=== PATIENT | female | born 1955 | race Caucasian/White ===

== ENCOUNTER 2022-07-23 17:48 | Inpatient (IN) ==
[2022-07-23] MEDS ORDERED: PERCOCET TAB 5/325 MG ONE (22:43)
[2022-07-23] MEDS: PERCOCET TAB 5/325 MG PO PRN (22:48)
[2022-07-23] MEDS: ZOSYN VIAL 3.375 GRAMS 3.375 G in NS 100 ML IV 100 ML IV SCH (23:51)
[2022-07-23] MEDS: LR 1,000 ML IV 1,000 ML IV SCH (23:51)
[2022-07-24] MEDS: DILAUDID INJ IVP PRN ×3 (00:44→19:39)
[2022-07-24] MEDS: PERCOCET TAB 5/325 MG PO PRN (05:50)
[2022-07-24] MEDS: NEURONTIN CAP 100 MG PO SCH ×3 (05:56→21:11)
[2022-07-24] MEDS: REQUIP PO SCH ×3 (05:56→21:10)
[2022-07-24] MEDS: SYNTHROID 125 mcg TAB PO SCH (05:57)
[2022-07-24] MEDS: ZOSYN VIAL 3.375 GRAMS 3.375 G in NS 100 ML IV 100 ML IV SCH ×3 (05:57→21:18)
[2022-07-24] MEDS: ROBAXIN PO SCH ×3 (05:57→21:18)
[2022-07-24 06:02] LABS: BASOPHILS # (AUTO) 0.1 X10^3/uL (0.0-0.1); BASOPHILS % (AUTO) 0.8 % (0.2-1.0); EOSINOPHILS # (AUTO) 0.2 x10^3/uL (0.0-0.2); EOSINOPHILS % (AUTO) 2.3 % (0.9-2.9); HEMATOCRIT 28.7 % (36.0-47.0); HEMOGLOBIN 9.7 g/dL (12.0-16.0); MEAN CORPUSCULAR HEMOGLOBIN 30.9 pg (27.0-34.0); MEAN CORPUSCULAR HGB CONC 33.7 g/dL (33.0-35.0); MEAN CORPUSCULAR VOLUME 91.5 fL (80.0-100.0); MEAN PLATELET VOLUME 8.4 fL (7.4-11.0); MONOCYTES # (AUTO) 0.5 x10^3/uL (0.3-0.8); MONOCYTES % (AUTO) 6.4 % (0.0-13.0); NEUTROPHILS # (AUTO) 6.1 x10^3/uL (2.2-4.8); NEUTROPHILS % (AUTO) 77.5 % (42.0-75.0); RED BLOOD COUNT 3.14 X10^6/uL (3.5-5.4); RED CELL DISTRIBUTION WIDTH 13.4 % (11.6-16.5); WHITE BLOOD COUNT 7.9 X10^3/uL (3.6-10.0)
[2022-07-24 06:07] LABS: INR 1.31 (0.8-1.3)
[2022-07-24 06:15] LABS: ALANINE AMINOTRANSFERASE 21 Units/L (12-78); ALBUMIN 2.3 g/dL (3.4-5.0); ALKALINE PHOSPHATASE 295 Units/L (46-116); ASPARTATE AMINO TRANSFERASE 20 Units/L (15-37); BLOOD UREA NITROGEN 17 mg/dL (7-18); CARBON DIOXIDE 34.4 mmol/L (21-32); CHLORIDE 105 mmol/L (98-107); COR CA(FOR HYPOALB) 9.4 mg/dL (8.5-10.1); COR NA(FOR HYPERGLY) 142 mmol/L (136-145); CREATININE 1.03 mg/dL (0.55-1.02); SODIUM 141 mmol/L (136-145); TOTAL PROTEIN 6.1 g/dL (6.4-8.2); eGFR NON BLACK RACES 57 (>60)
--- NOTE | 2022-07-24 07:21 | RAD ---
HISTORYPREOP ISCHEMIC LEFT LEG W/OPEN WOUNDSTUDYCHEST, 1 VIEWCOMPARISONNoneTECHNIQUEAP view of the chestFINDINGSCardiac and mediastinal contours are within normal limits. Elevated right hemidiaphragm. Linear left midlung opacities consistent with subsegmental atelectasis or scar. No definite pleural effusion or pneumothorax. Soft tissue attenuation limits evaluation.IMPRESSIONLeft midlung subsegmental atelectasis versus scar.Electronically signed by: Dirk Rivas (Jul 24, 2022 07:19:59)
[2022-07-24] MEDS ORDERED: TOPROL XL PO ONE (08:36)
[2022-07-24] MEDS ORDERED: LEXAPRO ONE (08:36)
--- NOTE | 2022-07-24 09:46 | NOTE.SOAP ---
Soap Note Note for Day of Date of Exam: 07/24/22 Subjective Data Subjective Data: Admitted yesterday from office for non- healing wounds of the left foot secondary to cast placement with probable ischemia left leg. Did well through the night and pain relieved Objective Data Temperature: 97.8 F Pulse Rate: 60 Respiratory Rate: 18 Blood Pressure: 140/62 O2 Sat by Pulse Oximetry: 6 Objective Data: LEft foot wounds as per H& P. Now coveredd with dressing . Cr-= 1.03, Hgb=9.7, WBC=7.9 Assessment Assessment: Ischemic left leg with wounds Plan Plan: IV antibiotics, CTA of aorta with runoff both legs today.
[2022-07-24] MEDS: ASPIRIN EC 81 MG PO SCH (11:14)
[2022-07-24] MEDS: LEXAPRO PO SCH (11:14)
[2022-07-24] MEDS: VITAMIN D3 125 mcg (5,000 UNITS) PO SCH (11:15)
[2022-07-24] MEDS: ZETIA TAB 10 MG PO SCH (11:15)
[2022-07-24] MEDS: PROTONIX TAB 40 MG PO SCH (11:15)
[2022-07-24] MEDS: FOLIC ACID TAB 1 MG PO SCH (11:15)
[2022-07-24] MEDS: LOVENOX INJ 40 MG SYR SC SCH (11:16)
[2022-07-24] MEDS: TOPROL XL PO SCH (11:19)
[2022-07-24] MEDS: CATAPRES TAB 0.1 MG PO SCH ×2 (11:19→21:12)
[2022-07-24] MEDS: LR 1,000 ML IV 1,000 ML IV SCH (11:55)
[2022-07-24] MEDS: SANTYL EXT SCH (14:30)
[2022-07-24] MEDS: COLACE CAP 100 MG PO SCH (21:10)
[2022-07-24] MEDS: MELATONIN PO SCH (21:11)
[2022-07-24] MEDS: SINGULAIR TAB 10 MG PO SCH (21:12)
--- NOTE | 2022-07-24 23:29 | DR.UPDATE ---
H&P UPDATE Review Yes Patient was examined?: Yes
[2022-07-25] MEDS: LR 1,000 ML IV 1,000 ML IV SCH ×2 (01:26→13:56)
[2022-07-25] MEDS: ROBAXIN PO SCH ×3 (05:20→21:06)
[2022-07-25] MEDS: NEURONTIN CAP 100 MG PO SCH ×3 (05:20→21:05)
[2022-07-25] MEDS: REQUIP PO SCH ×3 (05:20→21:06)
[2022-07-25] MEDS: ZOSYN VIAL 3.375 GRAMS 3.375 G in NS 100 ML IV 100 ML IV SCH ×3 (05:21→21:05)
[2022-07-25] MEDS: SYNTHROID 125 mcg TAB PO SCH (05:50)
[2022-07-25 06:22] LABS: BASOPHILS % (AUTO) 0.8 % (0.2-1.0); EOSINOPHILS # (AUTO) 0.1 x10^3/uL (0.0-0.2); EOSINOPHILS % (AUTO) 2.5 % (0.9-2.9); HEMATOCRIT 28.1 % (36.0-47.0); HEMOGLOBIN 9.4 g/dL (12.0-16.0); LYMPHOCYTES # (AUTO) 0.9 X10^3/uL (1.3-2.9); LYMPHOCYTES % (AUTO) 15.7 % (21.0-51.0); MEAN CORPUSCULAR HEMOGLOBIN 30.9 pg (27.0-34.0); MEAN CORPUSCULAR HGB CONC 33.5 g/dL (33.0-35.0); MEAN CORPUSCULAR VOLUME 92.2 fL (80.0-100.0); MEAN PLATELET VOLUME 8.3 fL (7.4-11.0); MONOCYTES # (AUTO) 0.4 x10^3/uL (0.3-0.8); MONOCYTES % (AUTO) 7.4 % (0.0-13.0); NEUTROPHILS # (AUTO) 4.3 x10^3/uL (2.2-4.8); NEUTROPHILS % (AUTO) 73.6 % (42.0-75.0); RED BLOOD COUNT 3.05 X10^6/uL (3.5-5.4); RED CELL DISTRIBUTION WIDTH 13.6 % (11.6-16.5); WHITE BLOOD COUNT 5.8 X10^3/uL (3.6-10.0)
[2022-07-25 06:41] LABS: ALANINE AMINOTRANSFERASE 17 Units/L (12-78); ALBUMIN 2.2 g/dL (3.4-5.0); ALKALINE PHOSPHATASE 282 Units/L (46-116); ASPARTATE AMINO TRANSFERASE 19 Units/L (15-37); BLOOD UREA NITROGEN 19 mg/dL (7-18); CALCIUM 8.2 mg/dL (8.5-10.1); CHLORIDE 108 mmol/L (98-107); COR CA(FOR HYPOALB) 9.6 mg/dL (8.5-10.1); CREATININE 0.95 mg/dL (0.55-1.02); SODIUM 143 mmol/L (136-145); TOTAL PROTEIN 6.1 g/dL (6.4-8.2); eGFR NON BLACK RACES > 60 (>60)
[2022-07-25] MEDS ORDERED: LEXAPRO ONE (08:47)
[2022-07-25] MEDS ORDERED: TOPROL XL PO ONE (08:47)
[2022-07-25] MEDS: PROTONIX TAB 40 MG PO SCH (08:55)
[2022-07-25] MEDS: LOVENOX INJ 40 MG SYR SC SCH (08:55)
[2022-07-25] MEDS: TOPROL XL PO SCH (08:56)
[2022-07-25] MEDS: VITAMIN D3 125 mcg (5,000 UNITS) PO SCH (08:56)
[2022-07-25] MEDS: FOLIC ACID TAB 1 MG PO SCH (08:56)
[2022-07-25] MEDS: CATAPRES TAB 0.1 MG PO SCH ×2 (08:56→21:32)
[2022-07-25] MEDS: ZETIA TAB 10 MG PO SCH (08:56)
[2022-07-25] MEDS: ASPIRIN EC 81 MG PO SCH (08:56)
[2022-07-25] MEDS: LEXAPRO PO SCH (08:56)
[2022-07-25] MEDS: SANTYL EXT SCH (09:25)
[2022-07-25] MEDS: PERCOCET TAB 5/325 MG PO PRN ×2 (09:36→20:53)
--- NOTE | 2022-07-25 11:46 | NOTE.SOAP ---
Soap Note Note for Day of Date of Exam: 07/25/22 Subjective Data Subjective Data: Doing well.Pain controlled . Dressing changes of left foot being done daily. Objective Data Temperature: 98.3 F Pulse Rate: 66 Respiratory Rate: 20 Blood Pressure: 108/54 O2 Sat by Pulse Oximetry: 96 Objective Data: Left foot as above. CTA shows severe stenosis both SFAs with probable 3 vessel runoff bilaterally. Assessment Assessment: Ischemic left foot with non-healing wounds . Bilateral SFA severe stenosis. Plan Plan: Plan arteriogram and atherectomy and angioplasty left SFA as it is the side of concern now. Will need the right leg done in the future as well. Risks and benefits discussed with the patient and she agrees to proceed.
[2022-07-25] MEDS: SINGULAIR TAB 10 MG PO SCH (20:52)
[2022-07-25] MEDS: MELATONIN PO SCH (20:52)
[2022-07-25] MEDS: COLACE CAP 100 MG PO SCH (20:53)
[2022-07-25] MEDS: DUONEB 0.5 MG/3 MG (3 mL) NEB SCH (21:00)
[2022-07-25] MEDS: PULMICORT NEB TX 0.5 MG NEB SCH (21:00)
[2022-07-25] MEDS: DILAUDID INJ IVP PRN (23:51)
[2022-07-26] MEDS: LR 1,000 ML IV 1,000 ML IV SCH ×3 (02:15→18:27)
[2022-07-26] MEDS: NEURONTIN CAP 100 MG PO SCH ×3 (05:13→21:17)
[2022-07-26] MEDS: ROBAXIN PO SCH ×3 (05:14→21:17)
[2022-07-26] MEDS: REQUIP PO SCH ×3 (05:14→21:16)
[2022-07-26] MEDS: ZOSYN VIAL 3.375 GRAMS 3.375 G in NS 100 ML IV 100 ML IV SCH ×3 (05:14→21:17)
[2022-07-26] MEDS: SYNTHROID 125 mcg TAB PO SCH (05:31)
[2022-07-26] MEDS: DILAUDID INJ IVP PRN (05:38)
[2022-07-26 06:22] LABS: BASOPHILS % (AUTO) 0.6 % (0.2-1.0); EOSINOPHILS # (AUTO) 0.2 x10^3/uL (0.0-0.2); EOSINOPHILS % (AUTO) 2.6 % (0.9-2.9); HEMATOCRIT 26.4 % (36.0-47.0); HEMOGLOBIN 8.8 g/dL (12.0-16.0); LYMPHOCYTES # (AUTO) 0.8 X10^3/uL (1.3-2.9); LYMPHOCYTES % (AUTO) 12.2 % (21.0-51.0); MEAN CORPUSCULAR HEMOGLOBIN 30.3 pg (27.0-34.0); MEAN CORPUSCULAR HGB CONC 33.2 g/dL (33.0-35.0); MEAN CORPUSCULAR VOLUME 91.2 fL (80.0-100.0); MEAN PLATELET VOLUME 8.6 fL (7.4-11.0); MONOCYTES # (AUTO) 0.5 x10^3/uL (0.3-0.8); MONOCYTES % (AUTO) 7.1 % (0.0-13.0); NEUTROPHILS % (AUTO) 77.5 % (42.0-75.0); RED CELL DISTRIBUTION WIDTH 13.6 % (11.6-16.5); WHITE BLOOD COUNT 6.4 X10^3/uL (3.6-10.0)
[2022-07-26 06:32] LABS: ALANINE AMINOTRANSFERASE 19 Units/L (12-78); ALBUMIN 2.2 g/dL (3.4-5.0); ALKALINE PHOSPHATASE 303 Units/L (46-116); ASPARTATE AMINO TRANSFERASE 24 Units/L (15-37); BLOOD UREA NITROGEN 18 mg/dL (7-18); CARBON DIOXIDE 32.3 mmol/L (21-32); CHLORIDE 106 mmol/L (98-107); COR CA(FOR HYPOALB) 9.4 mg/dL (8.5-10.1); COR NA(FOR HYPERGLY) 141 mmol/L (136-145); CREATININE 1.05 mg/dL (0.55-1.02); SODIUM 141 mmol/L (136-145); TOTAL PROTEIN 5.9 g/dL (6.4-8.2); eGFR NON BLACK RACES 55 (>60)
[2022-07-26] MEDS: FOLIC ACID TAB 1 MG PO SCH (08:40)
[2022-07-26] MEDS: ASPIRIN EC 81 MG PO SCH (08:40)
[2022-07-26] MEDS: CATAPRES TAB 0.1 MG PO SCH ×2 (08:40→21:16)
[2022-07-26] MEDS: VITAMIN D3 125 mcg (5,000 UNITS) PO SCH (08:41)
[2022-07-26] MEDS: LEXAPRO PO SCH (08:41)
[2022-07-26] MEDS: ZETIA TAB 10 MG PO SCH (08:41)
[2022-07-26] MEDS: LOVENOX INJ 40 MG SYR SC SCH (08:41)
[2022-07-26] MEDS: TOPROL XL PO SCH (08:41)
[2022-07-26] MEDS: PROTONIX TAB 40 MG PO SCH (08:41)
[2022-07-26] MEDS: DUONEB 0.5 MG/3 MG (3 mL) NEB SCH ×2 (08:46→20:05)
[2022-07-26] MEDS: PULMICORT NEB TX 0.5 MG NEB SCH ×2 (08:46→20:05)
[2022-07-26] MEDS ORDERED: VERSED ONE (10:50)
[2022-07-26] MEDS ORDERED: FENTANYL VIAL INJ 100 mcg ONE (10:50)
[2022-07-26] MEDS ORDERED: PEPCID 20 MG VIAL ONE ×2 (10:54→11:21)
[2022-07-26] MEDS ORDERED: PROTAMINE SULFATE 50 MG VIAL ONE ×2 (11:21→13:21)
[2022-07-26] MEDS ORDERED: HEPARIN SODIUM INJ 5000 UNITS ONE (11:21)
[2022-07-26] MEDS ORDERED: NS 100 ML IV 100 ML ONE (11:22)
[2022-07-26] MEDS ORDERED: NS 1,000 ML IV 1,000 ML ONE (11:22)
[2022-07-26] MEDS ORDERED: ANCEF VIAL 1 GRAM ONE ×2 (11:22→11:23)
[2022-07-26] MEDS ORDERED: MARCAINE 0.5% ONE (11:31)
[2022-07-26] MEDS ORDERED: HEPARIN SODIUM IN D5W 75,000 UNITS/1,500 ML BAG ONE (11:31)
[2022-07-26] MEDS ORDERED: KETAMINE HCL ONE (11:49)
[2022-07-26] MEDS ORDERED: PRECEDEX INJ VIAL IVP ONE (11:49)
[2022-07-26] MEDS ORDERED: EPHEDRINE SULFATE INJ ONE (12:17)
[2022-07-26] MEDS ORDERED: DIPRIVAN VIAL 20 ML ONE (12:56)
[2022-07-26] MEDS ORDERED: NS 500 ML IV 500 ML IV ONE (12:59)
[2022-07-26] MEDS ORDERED: NEO-SYNEPHRINE INJ ONE (13:05)
--- NOTE | 2022-07-26 13:31 | OR.IMMED ---
IMMEDIATE POST-OP NOTE Immediate Post-Op Note Pre-Op Diagnosis: Ischemic left foot with non- healing wounds Post-Op Diagnosis: same Procedure: Aortogram, atherectomy and angioplasty left peroneal artery, Drug coated balloon angioplasty left SFA Surgeon/Field Crop Farmer: Carina Findings: 75 % stenosis left distal SFA, occlude left posterior tibial artery, severely diseased proximal left peroneal artery normal left anterior tibial cheyanne ry Estimated Blood Loss: 100cc Complications: none Discharge Progress Notes: to floor, continue IV antibiotics, Dr. Scott to debride left foot wounds tomorrow. Final Diagnosis: as above
[2022-07-26] MEDS: PERCOCET TAB 5/325 MG PO PRN ×2 (14:50→21:21)
--- NOTE | 2022-07-26 17:22 | DR.CONSULT ---
CONSULT Consultation for Day of: Date: 07/26/22 Chief Complaint Chief Complaint: Lower extremity wounds Allergies Allergies Allergy/AdvReac Type Severity Reaction Status Date / Time No Known Drug Allergies Allergy Verified 07/23/22 21:06 History of Present Illness History of Present Illness: This is a 67 year old female who presented to the hospital via Dr. Corado for left lower extremity ischemia with non-healing wounds. Her is present bedside at the time of interview. Significant history is listed below. Patient's states she fell and fractured several bones in her left ankle and was being seen down in [place], [place] for this. During this period she was treated conservatively with a below knee cast. Patient states she was having a lot of pain with the cast and once it was removed she noticed there were multiple wounds on her ankle and foot. Patient states she has been seeing Dr. Scott in clinic for this and she was sent to Dr. Corado via Dr. Scott for further vascular workup. She was taken to surgery today by Dr. Corado for left lower extremity ischemia. Patient states she also has a broken back and that her right knee is severely arthritic, which she is concerned will not be able to be addressed unless her left foot wounds heal. She denies any new treatments since her last visit. Denies f,c,n,v,sob, and cp at time of interview. Past Medical History Past Medical History: Arthritis (Right knee) Past Surgical History Surgical History: Ortho Surgery Family History Family Medical History: Sudden Cardiac Social History Does patient currently use any type of tobacco product: No Have you used tobacco products in the last 12 months: No Type of Tobacco Use: Cigarettes How many years tobacco product used: 25 Alcohol Use: DAILY Drug Use: None Medications Home Medications: No Known Drug Allergies Allergy (Verified 07/23/22 21:06) CONTINUE taking the following medications aspirin 81 mg chewable tablet 81 mg PO QDAY 07/23/22 [History] cholecalciferol (vitamin D3) 125 mcg (5,000 unit) tablet (Vitamin D3) 125 mcg PO QAM 07/23/22 [History] clonidine HCl 0.1 mg tablet 1 tab PO TID PRN blood pressure 07/23/22 [History] clopidogrel 75 mg tablet 1 tab PO QDAY 07/23/22 [History] docusate sodium 100 mg capsule 1 cap PO BID 07/23/22 [History] escitalopram oxalate 10 mg tablet 1 tab PO QDAY 07/23/22 [History] ezetimibe 10 mg tablet 1 tab PO QDAY 07/23/22 [History] folic acid 1 mg tablet 1 tab PO QDAY anemia 07/23/22 [History] furosemide 20 mg tablet 20 mg PO QAM 07/23/22 [History] gabapentin 100 mg capsule 1 cap PO 6XD 07/23/22 [History] hydrocodone 5 mg-acetaminophen 325 mg tablet 1 tab PO Q6H PRN 07/23/22 [History] levothyroxine 50 mcg tablet (Synthroid) 1 tab PO QDAY 07/23/22 [History] magnesium citrate 100 mg capsule 200 mg PO QAM 07/23/22 [History] melatonin 10 mg tablet 10 mg PO HS PRN 07/23/22 [History] methocarbamol 500 mg tablet 1 tab PO TID 07/23/22 [History] metoprolol succinate 100 mg tablet,extended release 24 hr 1 tab PO QDAY 07/23/22 [History] montelukast 10 mg tablet 1 tab PO QDAY 07/23/22 [History] mupirocin 2 % topical ointment 1 ea topical BID 07/23/22 [History] pantoprazole 40 mg tablet,delayed release 1 tab PO QDAY 07/23/22 [History] polysaccharide iron complex 150 mg iron capsule 1 cap PO QDAY 07/23/22 [History] ropinirole 0.5 mg tablet 1 tab PO QDAY 07/23/22 [History] vit C 250 mg-vit E 90 mg-zinc 40 mg-copper 1 [id number]-thproe capsule (PreserVision AREDS-2) 1 cap PO QHS 07/23/22 [History] Review of Systems Constitutional: Other (Negative unless otherwise noted in HPI.) Physical Exam Vital Signs: Temperature 98.7 F Pulse Rate [Left Brachial] 64 Pulse Rate [Right Brachial] 69 Pulse Rate 76 Respiratory Rate 18 Blood Pressure [Left Arm] 134/63 Blood Pressure [Right Arm] 158/68 Blood Pressure 108/54 O2 Sat by Pulse Oximetry 92 Cardiovascular: Other (DP/PT pulses are faintly palpable bilaterally. CFT = 3 seconds to digits bilaterally. +1 Pitting edema to left lower extremity distal to knee. Pedal hair absent.) Skin: Other (Light touch and protective sensation are intact on todays exam via [place] touch test. No focal motor deficits noted.) Musculoskeletal: Left, Ankle (Multiple lower extremity wounds - one anterior ankle and one posterior ankle of the left lower extremity. Wounds are fibrogranular. Erythema noted about the wounds. Mild serosanginous drainage. No obvious malodor or purulence today.) and Foot Plan (1) Unspecified open wound, left ankle, initial encounter: Status: Acute Plan: Will take to OR tomorrow for left lower extremity wound debridement with possible application of wound vac. NPO after midnight. Consent in patient packet. Patient receiving IV abx on floor Discussed follow up care at home - Shelley, the cyanide case hardener, will have to follow up about home health care needs for wound vac changes. Will write for wound vac tomorrow. (2) Ischemia of left lower extremity: Status: Acute Plan: Patient was seen today by Dr. Corado and underwent vascular intervention for left lower extremity ischemia. CTA reviewed.
[2022-07-26] MEDS: COLACE CAP 100 MG PO SCH (21:16)
[2022-07-26] MEDS: MELATONIN PO SCH (21:16)
[2022-07-26] MEDS: SINGULAIR TAB 10 MG PO SCH (21:16)
[2022-07-27] MEDS: DILAUDID INJ IVP PRN ×2 (02:25→19:50)
[2022-07-27] MEDS: NEURONTIN CAP 100 MG PO SCH ×3 (05:17→21:41)
[2022-07-27] MEDS: REQUIP PO SCH ×3 (05:17→21:41)
[2022-07-27] MEDS: ROBAXIN PO SCH ×3 (05:18→21:42)
[2022-07-27] MEDS: SYNTHROID 125 mcg TAB PO SCH (05:32)
[2022-07-27] MEDS: ZOSYN VIAL 3.375 GRAMS 3.375 G in NS 100 ML IV 100 ML IV SCH ×3 (05:32→21:42)
[2022-07-27 06:20] LABS: BASOPHILS % (AUTO) 0.5 % (0.2-1.0); EOSINOPHILS # (AUTO) 0.1 x10^3/uL (0.0-0.2); EOSINOPHILS % (AUTO) 2.4 % (0.9-2.9); HEMATOCRIT 24.2 % (36.0-47.0); HEMOGLOBIN 8.3 g/dL (12.0-16.0); LYMPHOCYTES # (AUTO) 0.7 X10^3/uL (1.3-2.9); LYMPHOCYTES % (AUTO) 12.6 % (21.0-51.0); MEAN CORPUSCULAR HEMOGLOBIN 31.2 pg (27.0-34.0); MEAN CORPUSCULAR VOLUME 91.6 fL (80.0-100.0); MEAN PLATELET VOLUME 8.4 fL (7.4-11.0); MONOCYTES # (AUTO) 0.5 x10^3/uL (0.3-0.8); MONOCYTES % (AUTO) 8.8 % (0.0-13.0); NEUTROPHILS # (AUTO) 4.4 x10^3/uL (2.2-4.8); NEUTROPHILS % (AUTO) 75.7 % (42.0-75.0); RED BLOOD COUNT 2.65 X10^6/uL (3.5-5.4); RED CELL DISTRIBUTION WIDTH 13.7 % (11.6-16.5); WHITE BLOOD COUNT 5.8 X10^3/uL (3.6-10.0)
[2022-07-27 06:36] LABS: ALANINE AMINOTRANSFERASE 17 Units/L (12-78); ALKALINE PHOSPHATASE 280 Units/L (46-116); ASPARTATE AMINO TRANSFERASE 24 Units/L (15-37); BLOOD UREA NITROGEN 14 mg/dL (7-18); CALCIUM 7.9 mg/dL (8.5-10.1); CARBON DIOXIDE 29.7 mmol/L (21-32); CHLORIDE 107 mmol/L (98-107); COR CA(FOR HYPOALB) 9.5 mg/dL (8.5-10.1); COR NA(FOR HYPERGLY) 142 mmol/L (136-145); CREATININE 0.85 mg/dL (0.55-1.02); SODIUM 141 mmol/L (136-145); TOTAL PROTEIN 5.5 g/dL (6.4-8.2); eGFR NON BLACK RACES > 60 (>60)
[2022-07-27] MEDS: LR 1,000 ML IV 1,000 ML IV SCH ×2 (07:12→21:42)
[2022-07-27] MEDS: DUONEB 0.5 MG/3 MG (3 mL) NEB SCH ×2 (08:39→21:49)
[2022-07-27] MEDS: PULMICORT NEB TX 0.5 MG NEB SCH ×2 (08:39→21:49)
[2022-07-27] MEDS: PROTONIX TAB 40 MG PO SCH (08:50)
[2022-07-27] MEDS: FOLIC ACID TAB 1 MG PO SCH (08:50)
[2022-07-27] MEDS: ASPIRIN EC 81 MG PO SCH (08:50)
[2022-07-27] MEDS: CATAPRES TAB 0.1 MG PO SCH ×2 (08:50→21:41)
[2022-07-27] MEDS: LEXAPRO PO SCH (08:50)
[2022-07-27] MEDS: ZETIA TAB 10 MG PO SCH (08:51)
[2022-07-27] MEDS: TOPROL XL PO SCH (08:51)
[2022-07-27] MEDS: VITAMIN D3 125 mcg (5,000 UNITS) PO SCH (08:51)
[2022-07-27] MEDS ORDERED: DIPRIVAN VIAL 20 ML ONE (12:25)
[2022-07-27] MEDS ORDERED: XYLOCAINE 2 % (PLAIN) ONE (12:25)
[2022-07-27] MEDS ORDERED: VERSED ONE (12:34)
[2022-07-27] MEDS ORDERED: FENTANYL VIAL INJ 100 mcg ONE (12:34)
[2022-07-27] MEDS ORDERED: ANCEF VIAL 1 GRAM ONE (14:24)
[2022-07-27] MEDS ORDERED: NS 100 ML IV 100 ML ONE (14:25)
[2022-07-27] MEDS ORDERED: NS 1,000 ML IV 1,000 ML ONE (14:25)
[2022-07-27] MEDS ORDERED: BETADINE SOLN ONE (14:38)
[2022-07-27] MEDS ORDERED: MARCAINE 0.25% INJ ONE (14:38)
--- NOTE | 2022-07-27 15:52 | NOTE.SOAP ---
Soap Note Note for Day of Date of Exam: 07/27/22 Subjective Data Subjective Data: POD # 1 after drug coated balloon angioplasty of left SFA and atherecrtomy and balloon angioplasty left peroneal artery to improve blood flow left leg and help healing. Dr. Scott to perform debridement of all wounds left foot today. Patient and her c/ o her being generally weak and he is coincrned he cannot take care of her at home bu himself. Had some bleeding form the right groin and that stopped with pressure. Hgb is 8.3 . Objective Data Temperature: 98.2 F Pulse Rate: 95 Respiratory Rate: 20 Blood Pressure: 126/58 O2 Sat by Pulse Oximetry: 96 Objective Data: Feet warm, Hgb=8.3, BMP is WNL, platlets = 65k Assessment Assessment: Doing well after revascularization and derbidement of the of the left foot wounds . Plan Plan: Originally planned to d/c patient home today but she will stau throught the weekend until we can get her placed the first of the week. I will be out of town starting tomorrow and Dr. Scott's service will follow her to discharge. D/C with po pain medications and po antibiotics.
[2022-07-27] MEDS: PERCOCET TAB 5/325 MG PO PRN (18:10)
[2022-07-27] MEDS: SINGULAIR TAB 10 MG PO SCH (21:41)
[2022-07-27] MEDS: MELATONIN PO SCH (21:41)
[2022-07-27] MEDS: COLACE CAP 100 MG PO SCH (21:41)
--- NOTE | 2022-07-27 22:44 | DR.OPNOTE ---
OP NOTE Pre-Op Diagnosis: Ischemic left leg with non- healing wounds Post-Op Diagnosis: same Procedure Date Date Of Procedure: 07/26/22 Procedure: PROCEDURE: Aortogram, arteriogram left leg, atherectomy and balloon angioplasty of the left peroneal artery, drug coated balloon angioplasty left superficial femoral artery. NARRATIVE: The patient was taken to the operative suite and placed in the supine position. Right groin and entire left leg were prepped and draped in sterile fashion. Time out for the procedure obtained . Patient was administered intravenous sedation which was supervised by myself. Ultrasound used to identify the right femoral artery and the skin overlying it infiltrated with 0. 5% Marcaine . Ultrasound used to guide puncture of the right femoral artery and a 0. 012 inch guide wire placed. Incision made over the guide wire at the skin edge and a micro sheath placed over the guidewire into the right femoral artery. Small guidewire exchanged for a 0. 035 inch Advantage glide wire and the micro sheath exchanged for a 5 Fr vascular sheath . Omni catheter placed over the guide wire into the aorta and diagnostic aortogram carried out using the power injector showing normal aorta and normal iliac arteries . Omni catheter used to steer the guide wire down the left side into the left femoral artery . Omni catheter exchanged for a Hayden catheter and sequential arteriograms carried out of the entire left leg showing 75% stenosis of the left distal superficial femoral artery. The left posterior tibial artery is occluded. The anterior tibial artery is patent to the foot and there was severe stenosis of the mid portion of the left peroneal artery. The patient has been given 5000 units of intravenous Heparin. The 5 Fr sheath was exchanged for a 7 Fr long sheath which was taken down to the proximal femoral artery. The Hayden catheter used to steer the wire down through the peroneal artery stenosis to the foot. This large wire exchanged for a 0. 014 inch wire using the Hayden catheter. Over t he 0. 014 inch wire we placed the Jet Stream atherectomy device and performed atherectomy of the area of stenosis of the left peroneal artery and then balloon dilated this with a 3 mm by 100 mm [employer] [place] balloon. Over the wire we performed angioplasty of the stenosis of the superficial femoral artery with a drug coated balloon angioplasty 5 mm by 200 mm [employer] drug-coated balloon. Post-procedure arteriogram showed excellent results. All devices and wires were removed from the sheaths . The destination sheath was pulled back into the aorta and 0. 035 inch Advantage glide wire placed into the aorta. The 7 Fr sheath was removed and exchanged for an Angio seal device which was used to close the puncture site of the right femoral artery. The patient was given 30 mg of intravenous Protamine. Hemostatic dressing applied to the right groin. Patient taking back to the floor in good condition. Type of Anesthesia: Local (0.5% Marcaine ) Anesthesia Comment: plus MAC Findings: occluded left posterior tibial artery, severe stenosis left peroneal artery, 75 % stenosis left distal superficial femoral artery Type of Fluids Used:: Lactated Ringers Total Amount of Fluid Infused:: 300 cc EBL: 100 cc Complications:: none Needle/Sponge Count:: correct Disposition/Condition: Pt. tolerated procedure without difficulty. Patient taken back to floor in stable condition.
[2022-07-28] MEDS: DILAUDID INJ IVP PRN ×2 (01:35→08:51)
[2022-07-28] MEDS: SYNTHROID 125 mcg TAB PO SCH (05:30)
[2022-07-28] MEDS: REQUIP PO SCH ×3 (05:30→21:36)
[2022-07-28] MEDS: NEURONTIN CAP 100 MG PO SCH ×3 (05:30→21:36)
[2022-07-28] MEDS: ROBAXIN PO SCH ×3 (05:31→21:37)
[2022-07-28] MEDS: ZOSYN VIAL 3.375 GRAMS 3.375 G in NS 100 ML IV 100 ML IV SCH ×3 (05:31→21:35)
[2022-07-28 06:45] LABS: ALANINE AMINOTRANSFERASE 13 Units/L (12-78); ALBUMIN 1.9 g/dL (3.4-5.0); ALKALINE PHOSPHATASE 269 Units/L (46-116); ASPARTATE AMINO TRANSFERASE 21 Units/L (15-37); BLOOD UREA NITROGEN 10 mg/dL (7-18); CALCIUM 8.1 mg/dL (8.5-10.1); CARBON DIOXIDE 30.3 mmol/L (21-32); CHLORIDE 107 mmol/L (98-107); COR CA(FOR HYPOALB) 9.8 mg/dL (8.5-10.1); COR NA(FOR HYPERGLY) 142 mmol/L (136-145); CREATININE 0.77 mg/dL (0.55-1.02); SODIUM 141 mmol/L (136-145); TOTAL PROTEIN 5.5 g/dL (6.4-8.2); eGFR NON BLACK RACES > 60 (>60)
[2022-07-28 06:57] LABS: BASOPHILS % (AUTO) 0.8 % (0.2-1.0); EOSINOPHILS # (AUTO) 0.2 x10^3/uL (0.0-0.2); EOSINOPHILS % (AUTO) 3.3 % (0.9-2.9); HEMATOCRIT 24.3 % (36.0-47.0); LYMPHOCYTES # (AUTO) 0.7 X10^3/uL (1.3-2.9); LYMPHOCYTES % (AUTO) 14.1 % (21.0-51.0); MEAN CORPUSCULAR HEMOGLOBIN 30.5 pg (27.0-34.0); MEAN CORPUSCULAR HGB CONC 32.9 g/dL (33.0-35.0); MEAN CORPUSCULAR VOLUME 92.7 fL (80.0-100.0); MEAN PLATELET VOLUME 8.5 fL (7.4-11.0); MONOCYTES # (AUTO) 0.6 x10^3/uL (0.3-0.8); MONOCYTES % (AUTO) 10.9 % (0.0-13.0); NEUTROPHILS # (AUTO) 3.6 x10^3/uL (2.2-4.8); NEUTROPHILS % (AUTO) 70.9 % (42.0-75.0); RED BLOOD COUNT 2.62 X10^6/uL (3.5-5.4); RED CELL DISTRIBUTION WIDTH 13.6 % (11.6-16.5); WHITE BLOOD COUNT 5.1 X10^3/uL (3.6-10.0)
[2022-07-28] MEDS ORDERED: TOPROL XL PO ONE (08:12)
[2022-07-28] MEDS ORDERED: LEXAPRO ONE (08:12)
[2022-07-28] MEDS: PROTONIX TAB 40 MG PO SCH (08:24)
[2022-07-28] MEDS: TOPROL XL PO SCH (08:24)
[2022-07-28] MEDS: VITAMIN D3 125 mcg (5,000 UNITS) PO SCH (08:24)
[2022-07-28] MEDS: LEXAPRO PO SCH (08:24)
[2022-07-28] MEDS: CATAPRES TAB 0.1 MG PO SCH ×2 (08:25→21:37)
[2022-07-28] MEDS: ZETIA TAB 10 MG PO SCH (08:25)
[2022-07-28] MEDS: FOLIC ACID TAB 1 MG PO SCH (08:25)
[2022-07-28] MEDS: ASPIRIN EC 81 MG PO SCH (08:25)
[2022-07-28] MEDS: DUONEB 0.5 MG/3 MG (3 mL) NEB SCH ×2 (08:39→20:30)
[2022-07-28] MEDS: PULMICORT NEB TX 0.5 MG NEB SCH ×2 (08:39→20:30)
--- NOTE | 2022-07-28 11:01 | NOTE.SOAP ---
Soap Note Note for Day of Date of Exam: 07/28/22 Subjective Data Subjective Data: Patient is seen bedside today on the floor, she is laying down in bed with her leg elevated on 2 pillows. No family present. Discussed case with inpatient nursing aide. Patient appears tired and lethargic during visit. She frequently closes her eyes during conversation, but can be awoken easily with verbal stimuli. She is oriented x3 and does not appear confused, just tired. When she does awake she says her ankle is feeling okay, but that she continues to have some pain in the region of her wounds. Objective Data Objective Data: Lethargic at time of visit. Not awake or alert, but oriented x3 during conversation. Posterior splint in place. Wound vacs on and running. Vasc: Popliteal pulses palpable. CFT to digits is maintained at preoperative level, ~ 3 seconds. Derm: Dressing intact to lower extremity. Neuro: Protective and light touch sensation intact bilaterally. No focal deficits noted. MSK: Pain on palpation of her posterior ankle, dorsal foot, and distolateral foot wounds. Expected on day 1 post op. Able to wiggle digits and move knee through ROM. Assessment Assessment: -S/p R lower extremity wound debridement (x3), graft application, and wound vac application with posterior splint (DOS 07-27-22_ Plan Plan: -Patient evaluated and chart reviewed. -NWB to R LE -Dressing: Leave intact. Reinforce for strikethrough with kerlex and an CHANG wrap. -Pain control: IV and PO. POs for discharge. -Abx: Per IM/vascular team. Currently getting abx on the floor, will need POs for DC. Follow cultures for finals and recommendations of abx course. -Disposition: Plan to stay through the weekend. Will need to discuss with case management if she qualifies for a alf facility, as her states he will have a difficult time taking care of her at home. Home health care is also an option if they can come more frequently. -Will follow (Saturday)
[2022-07-28] MEDS: LR 1,000 ML IV 1,000 ML IV SCH ×2 (11:25→21:35)
[2022-07-28] MEDS: PERCOCET TAB 5/325 MG PO PRN (17:24)
[2022-07-28] MEDS: COLACE CAP 100 MG PO SCH (21:36)
[2022-07-28] MEDS: MELATONIN PO SCH (21:37)
[2022-07-28] MEDS: SINGULAIR TAB 10 MG PO SCH (21:37)
[2022-07-29] MEDS: PERCOCET TAB 5/325 MG PO PRN ×2 (01:24→21:06)
[2022-07-29] MEDS: ZOSYN VIAL 3.375 GRAMS 3.375 G in NS 100 ML IV 100 ML IV SCH ×3 (05:09→21:08)
[2022-07-29] MEDS: NEURONTIN CAP 100 MG PO SCH ×3 (05:10→21:06)
[2022-07-29] MEDS: REQUIP PO SCH ×3 (05:10→21:06)
[2022-07-29] MEDS: ROBAXIN PO SCH ×3 (05:11→21:08)
[2022-07-29 06:16] LABS: EOSINOPHILS # (AUTO) 0.2 x10^3/uL (0.0-0.2); EOSINOPHILS % (AUTO) 4.2 % (0.9-2.9); HEMATOCRIT 22.4 % (36.0-47.0); HEMOGLOBIN 7.6 g/dL (12.0-16.0); LYMPHOCYTES # (AUTO) 0.7 X10^3/uL (1.3-2.9); LYMPHOCYTES % (AUTO) 15.9 % (21.0-51.0); MEAN CORPUSCULAR HEMOGLOBIN 31.2 pg (27.0-34.0); MEAN CORPUSCULAR VOLUME 91.8 fL (80.0-100.0); MEAN PLATELET VOLUME 8.4 fL (7.4-11.0); MONOCYTES # (AUTO) 0.5 x10^3/uL (0.3-0.8); MONOCYTES % (AUTO) 11.9 % (0.0-13.0); NEUTROPHILS # (AUTO) 2.9 x10^3/uL (2.2-4.8); RED BLOOD COUNT 2.44 X10^6/uL (3.5-5.4); RED CELL DISTRIBUTION WIDTH 13.7 % (11.6-16.5); WHITE BLOOD COUNT 4.3 X10^3/uL (3.6-10.0)
[2022-07-29 06:34] LABS: ALANINE AMINOTRANSFERASE 8 Units/L (12-78); ALBUMIN 1.7 g/dL (3.4-5.0); ALKALINE PHOSPHATASE 243 Units/L (46-116); ASPARTATE AMINO TRANSFERASE 18 Units/L (15-37); BLOOD UREA NITROGEN 11 mg/dL (7-18); CALCIUM 8.5 mg/dL (8.5-10.1); CARBON DIOXIDE 29.4 mmol/L (21-32); CHLORIDE 106 mmol/L (98-107); COR CA(FOR HYPOALB) 10.3 mg/dL (8.5-10.1); COR NA(FOR HYPERGLY) 139 mmol/L (136-145); CREATININE 0.79 mg/dL (0.55-1.02); SODIUM 139 mmol/L (136-145); TOTAL PROTEIN 5.3 g/dL (6.4-8.2); eGFR NON BLACK RACES > 60 (>60)
[2022-07-29] MEDS: SYNTHROID 125 mcg TAB PO SCH (06:46)
[2022-07-29] MEDS: PULMICORT NEB TX 0.5 MG NEB SCH ×2 (08:09→21:00)
[2022-07-29] MEDS: DUONEB 0.5 MG/3 MG (3 mL) NEB SCH ×2 (08:09→21:00)
[2022-07-29] MEDS ORDERED: TOPROL XL PO ONE (08:50)
[2022-07-29] MEDS ORDERED: LEXAPRO ONE (08:50)
[2022-07-29] MEDS: ZETIA TAB 10 MG PO SCH (08:55)
[2022-07-29] MEDS: TOPROL XL PO SCH (08:55)
[2022-07-29] MEDS: ASPIRIN EC 81 MG PO SCH (08:56)
[2022-07-29] MEDS: VITAMIN D3 125 mcg (5,000 UNITS) PO SCH (08:56)
[2022-07-29] MEDS: PROTONIX TAB 40 MG PO SCH (08:56)
[2022-07-29] MEDS: CATAPRES TAB 0.1 MG PO SCH ×2 (08:56→21:11)
[2022-07-29] MEDS: LEXAPRO PO SCH (08:56)
[2022-07-29] MEDS: FOLIC ACID TAB 1 MG PO SCH (08:56)
[2022-07-29] MEDS: LR 1,000 ML IV 1,000 ML IV SCH ×2 (15:27→21:12)
[2022-07-29] MEDS: MELATONIN PO SCH (21:06)
[2022-07-29] MEDS: SINGULAIR TAB 10 MG PO SCH (21:06)
[2022-07-29] MEDS: COLACE CAP 100 MG PO SCH (21:06)
[2022-07-30] MEDS: REQUIP PO SCH ×3 (05:19→21:24)
[2022-07-30] MEDS: ZOSYN VIAL 3.375 GRAMS 3.375 G in NS 100 ML IV 100 ML IV SCH ×2 (05:19→13:13)
[2022-07-30] MEDS: NEURONTIN CAP 100 MG PO SCH ×3 (05:20→21:23)
[2022-07-30] MEDS: PERCOCET TAB 5/325 MG PO PRN ×2 (05:23→20:14)
[2022-07-30] MEDS: ROBAXIN PO SCH ×3 (05:49→21:24)
[2022-07-30] MEDS: SYNTHROID 125 mcg TAB PO SCH (05:50)
[2022-07-30 06:26] LABS: BASOPHILS % (AUTO) 1.1 % (0.2-1.0); EOSINOPHILS # (AUTO) 0.2 x10^3/uL (0.0-0.2); HEMOGLOBIN 8.1 g/dL (12.0-16.0); LYMPHOCYTES # (AUTO) 0.7 X10^3/uL (1.3-2.9); MEAN CORPUSCULAR HEMOGLOBIN 30.7 pg (27.0-34.0); MEAN CORPUSCULAR HGB CONC 33.9 g/dL (33.0-35.0); MEAN CORPUSCULAR VOLUME 90.8 fL (80.0-100.0); MEAN PLATELET VOLUME 8.4 fL (7.4-11.0); MONOCYTES # (AUTO) 0.6 x10^3/uL (0.3-0.8); MONOCYTES % (AUTO) 14.9 % (0.0-13.0); NEUTROPHILS # (AUTO) 2.3 x10^3/uL (2.2-4.8); RED BLOOD COUNT 2.64 X10^6/uL (3.5-5.4); RED CELL DISTRIBUTION WIDTH 13.3 % (11.6-16.5); WHITE BLOOD COUNT 3.8 X10^3/uL (3.6-10.0)
[2022-07-30 06:44] LABS: ALANINE AMINOTRANSFERASE 9 Units/L (12-78); ALBUMIN 1.8 g/dL (3.4-5.0); ALKALINE PHOSPHATASE 254 Units/L (46-116); ASPARTATE AMINO TRANSFERASE 23 Units/L (15-37); BLOOD UREA NITROGEN 9 mg/dL (7-18); CALCIUM 8.5 mg/dL (8.5-10.1); CARBON DIOXIDE 30.9 mmol/L (21-32); CHLORIDE 105 mmol/L (98-107); COR CA(FOR HYPOALB) 10.3 mg/dL (8.5-10.1); CREATININE 0.75 mg/dL (0.55-1.02); SODIUM 138 mmol/L (136-145); TOTAL PROTEIN 5.8 g/dL (6.4-8.2); eGFR NON BLACK RACES > 60 (>60)
[2022-07-30 07:17] LABS: BAND NEUTROPHILS % 3 % (0-10); METAMYELOCYTES % 4
[2022-07-30 07:18] LABS: PLATELET MORPHOLOGY COMMENT NORMAL (NORMAL)
[2022-07-30] MEDS: PULMICORT NEB TX 0.5 MG NEB SCH ×2 (08:08→20:50)
[2022-07-30] MEDS: DUONEB 0.5 MG/3 MG (3 mL) NEB SCH ×2 (08:08→20:50)
[2022-07-30] MEDS ORDERED: LEXAPRO ONE (08:15)
[2022-07-30] MEDS ORDERED: TOPROL XL PO ONE (08:16)
[2022-07-30] MEDS: ASPIRIN EC 81 MG PO SCH (08:44)
[2022-07-30] MEDS: FOLIC ACID TAB 1 MG PO SCH (08:44)
[2022-07-30] MEDS: PROTONIX TAB 40 MG PO SCH (08:44)
[2022-07-30] MEDS: LEXAPRO PO SCH (08:44)
[2022-07-30] MEDS: CATAPRES TAB 0.1 MG PO SCH ×3 (08:44→20:26)
[2022-07-30] MEDS: ZETIA TAB 10 MG PO SCH (08:44)
[2022-07-30] MEDS: VITAMIN D3 125 mcg (5,000 UNITS) PO SCH (08:44)
[2022-07-30] MEDS: TOPROL XL PO SCH (08:44)
--- NOTE | 2022-07-30 13:13 | NOTE.SOAP ---
Soap Note Note for Day of Date of Exam: 07/30/22 Subjective Data Subjective Data: Patient seen bedside today with no family present. I did run into her in the hallway and briefly discussed patient's status with him as well. He related she has been having chills lately. No other new complaints per patient. Nursing team states she is being worked up right now for SNF placement of somekind, as she cannot take care of herself and her is unable to do so as well. Denies f,c,n,v,sob, and cp today. Objective Data Objective Data: Posterior splint in place. Wound vacs on and running. Vasc: Popliteal pulses palpable. CFT to digits is maintained at preoperative level, ~ 3 seconds. Derm: Dressing intact to lower extremity. Neuro: Protective and light touch sensation intact bilaterally. No focal deficits noted. MSK: Pain on palpation of her posterior ankle, dorsal foot, and distolateral foot wounds. Expected on day 1 post op. Able to wiggle digits and move knee through ROM. Assessment Assessment: -S/p R lower extremity wound debridement (x3), graft application, and wound vac application with posterior splint (DOS 07-27-22) Plan Plan: -Patient evaluated and chart reivewed. -Will likely need SNF for further care of her multiple problems. -NWB to L LE -Dressing to be left intact. Change planned for Saturday. -Abx per IM/Vascular. -Pain medication: POs should be sufficient at this time. -Okay for DC from hospital from foot and ankle POV. -Will follow
[2022-07-30] MEDS: LR 1,000 ML IV 1,000 ML IV SCH (13:32)
[2022-07-30] MEDS: CLEOCIN PO SCH ×2 (16:42→20:13)
[2022-07-30] MEDS: MELATONIN PO SCH (20:13)
[2022-07-30] MEDS: XARELTO PO SCH (20:13)
[2022-07-30] MEDS: COLACE CAP 100 MG PO SCH (20:14)
[2022-07-30] MEDS: SINGULAIR TAB 10 MG PO SCH (20:14)
[2022-07-31] MEDS: LR 1,000 ML IV 1,000 ML IV SCH ×4 (00:34→16:39)
[2022-07-31] MEDS: NEURONTIN CAP 100 MG PO SCH ×4 (05:27→21:06)
[2022-07-31] MEDS: REQUIP PO SCH ×4 (05:27→21:06)
[2022-07-31] MEDS: PERCOCET TAB 5/325 MG PO PRN ×2 (05:27→20:15)
[2022-07-31] MEDS: SYNTHROID 125 mcg TAB PO SCH (05:29)
[2022-07-31] MEDS: ROBAXIN PO SCH ×4 (05:30→21:06)
[2022-07-31 05:57] LABS: BASOPHILS % (AUTO) 0.7 % (0.2-1.0); EOSINOPHILS # (AUTO) 0.1 x10^3/uL (0.0-0.2); EOSINOPHILS % (AUTO) 2.3 % (0.9-2.9); HEMATOCRIT 23.3 % (36.0-47.0); HEMOGLOBIN 7.8 g/dL (12.0-16.0); LYMPHOCYTES # (AUTO) 0.6 X10^3/uL (1.3-2.9); LYMPHOCYTES % (AUTO) 12.5 % (21.0-51.0); MEAN CORPUSCULAR HEMOGLOBIN 30.3 pg (27.0-34.0); MEAN CORPUSCULAR HGB CONC 33.5 g/dL (33.0-35.0); MEAN CORPUSCULAR VOLUME 90.5 fL (80.0-100.0); MEAN PLATELET VOLUME 8.3 fL (7.4-11.0); MONOCYTES # (AUTO) 0.7 x10^3/uL (0.3-0.8); MONOCYTES % (AUTO) 14.7 % (0.0-13.0); NEUTROPHILS # (AUTO) 3.2 x10^3/uL (2.2-4.8); NEUTROPHILS % (AUTO) 69.8 % (42.0-75.0); RED BLOOD COUNT 2.57 X10^6/uL (3.5-5.4); RED CELL DISTRIBUTION WIDTH 13.5 % (11.6-16.5); WHITE BLOOD COUNT 4.6 X10^3/uL (3.6-10.0)
[2022-07-31 06:21] LABS: ALANINE AMINOTRANSFERASE 8 Units/L (12-78); ALBUMIN 1.7 g/dL (3.4-5.0); ALKALINE PHOSPHATASE 260 Units/L (46-116); ASPARTATE AMINO TRANSFERASE 21 Units/L (15-37); BLOOD UREA NITROGEN 13 mg/dL (7-18); CALCIUM 8.4 mg/dL (8.5-10.1); CARBON DIOXIDE 30.1 mmol/L (21-32); CHLORIDE 105 mmol/L (98-107); COR CA(FOR HYPOALB) 10.2 mg/dL (8.5-10.1); CREATININE 0.72 mg/dL (0.55-1.02); SODIUM 139 mmol/L (136-145); TOTAL PROTEIN 5.6 g/dL (6.4-8.2); eGFR NON BLACK RACES > 60 (>60)
[2022-07-31] MEDS: DUONEB 0.5 MG/3 MG (3 mL) NEB SCH ×4 (08:56→20:52)
[2022-07-31] MEDS: PULMICORT NEB TX 0.5 MG NEB SCH ×2 (08:56→20:51)
[2022-07-31] MEDS ORDERED: LEXAPRO ONE (09:18)
[2022-07-31] MEDS ORDERED: TOPROL XL PO ONE (09:18)
[2022-07-31] MEDS: ALBUMIN HUMAN 25%- 100 ML 100 ML IV SCH (09:26)
[2022-07-31] MEDS: CATAPRES TAB 0.1 MG PO SCH ×2 (09:27→20:14)
[2022-07-31] MEDS: CLEOCIN PO SCH (09:28)
[2022-07-31] MEDS: ASPIRIN EC 81 MG PO SCH (09:28)
[2022-07-31] MEDS: FOLIC ACID TAB 1 MG PO SCH (09:28)
[2022-07-31] MEDS: VITAMIN D3 125 mcg (5,000 UNITS) PO SCH (09:28)
[2022-07-31] MEDS: XARELTO PO SCH ×2 (09:28→20:14)
[2022-07-31] MEDS: PROTONIX TAB 40 MG PO SCH (09:29)
[2022-07-31] MEDS: LEXAPRO PO SCH (09:29)
[2022-07-31] MEDS: TOPROL XL PO SCH (09:29)
[2022-07-31] MEDS: ZETIA TAB 10 MG PO SCH (09:29)
[2022-07-31 10:05] LABS: ABG BASE EXCESS 7.2 mmol/L (-2.0-2.0)
[2022-07-31 10:06] LABS: ABG HCO3 34.8 mmol/L (22-26)
[2022-07-31] MEDS: LASIX IVP SCH ×2 (10:50→16:35)
[2022-07-31] MEDS ORDERED: PHARMACY CONSULT - VANCOMYCIN XX SCH (11:00)
[2022-07-31 11:20] LABS: BILIRUBIN,URINE NEGATIVE (NEGATIVE); BLOOD/HEMOGLOBIN,URINE 1+ (NEGATIVE); GLUCOSE, URINE NEGATIVE (NEGATIVE); KETONES,URINE NEGATIVE (NEGATIVE); LEUKOCYTE ESTERASE ,URINE NEGATIVE (NEGATIVE); NITRITES,URINE NEGATIVE (NEGATIVE); PROTEIN,URINE 1+ (NEGATIVE); UROBILINOGEN,URINE NORMAL (NORMAL)
[2022-07-31] MEDS: VANCOMYCIN IV *PREMIX 1 G/200 ML BAG 1 G/200 ML PIGGYBACK IV SCH ×2 (11:20→20:17)
[2022-07-31 11:35] LABS: APPEARANCE,URINE CLEAR (CLEAR); COLOR,URINE YELLOW (YELLOW)
[2022-07-31 11:36] LABS: RBC,URINE 0-2 /HPF (0-3); SQUAMOUS EPITHELIAL CELL,UR RARE /HPF (NEGATIVE)
[2022-07-31 11:37] LABS: BACTERIA,URINE NEGATIVE /HPF (NEGATIVE); CALCIUM OXALATE CRYSTALS,UR RARE /HPF (NEGATIVE); HYALINE CASTS, URINE RARE /LPF (NEGATIVE)
--- NOTE | 2022-07-31 11:58 | RAD ---
CHEST, 1 VIEWHISTORY: SOBStudy: Single view of the chest.Comparison:July 24, 2022Findings:Cardiomegaly.New opacity in the right midlung which is favored to represent fluid in the right minor fissure. Small bilateral pleural effusions are present and worsening from prior. Edema like pattern present. Osseous structures demonstrate no acute abnormality.IMPRESSION:1. Probable developing edema and bilateral effusions as above.Electronically signed by: ENRIKE JAIME (Jul 31, 2022 11:56:14)
[2022-07-31] MEDS: DILAUDID INJ IVP PRN (13:45)
--- NOTE | 2022-07-31 14:13 | NOTE.SOAP ---
Soap Note Note for Day of Date of Exam: 07/31/22 Subjective Data Subjective Data: Patient seen bedside today with present. Nursing team relates she had a low oxygen saturation after a possible choking incident. Additionally, one of her RITA wound vacs stopped working. She is now on bipap. AAOx3. No new complaints regarding her left lower extremity. Objective Data Objective Data: Posterior splint in place. Wound vacs batteries are and have stopped working earlier today. Vasc: Popliteal pulses palpable. DP/PT pulses faintly palpable. CFT to digits is maintained at preoperative level, ~ 3 seconds. Derm: Wound on dorsum of the left foot measures approximately 4x4cm. Wound on posterior achilles tendon insertion is approxiately 4x5cm. Wound on lateral 5th MPJ is approximately 1.5x2cm. All areas are covered in grafts and appear to be adhering well, grafts are partially incorporated at this time. [place] intact. No signs of infection, malodor, or purulence today. Neuro: Protective and light touch sensation intact bilaterally. No focal deficits noted. MSK: Pain on palpation of her posterior ankle, dorsal foot, and distolateral foot wounds. Able to wiggle digits and move knee through ROM. Assessment Assessment: -S/p R lower extremity wound debridement (x3), graft application, and wound vac application with posterior splint (DOS 07-27-22) Plan Plan: -Patient evaluated and chart reviewed. -Will likely need SNF for further care of her multiple problems. This process is underway by CM team - 2 facilities contacted. -NWB to L LE -Changed dressing today, as the wound vac stopped working. DC'd wound vacs and reapplied with adaptic and DSD with posterior splint. Can leave intact until clinic follow up next week. -Abx per IM/Vascular. Newest cx from heel grew MRSA - may need abx adjustment. -Pain medication: POs should be sufficient at this time. -Okay for DC from hospital from foot and ankle POV. -Will follow
[2022-07-31 19:40] VITALS: BMI 34.4
[2022-07-31] MEDS ORDERED: PULMICORT NEB TX 0.5 MG NEB ONE (19:59)
[2022-07-31] MEDS: COLACE CAP 100 MG PO SCH (20:15)
[2022-07-31] MEDS: MELATONIN PO SCH (20:16)
[2022-07-31] MEDS: SINGULAIR TAB 10 MG PO SCH (21:05)
[2022-08-01] MEDS: LR 1,000 ML IV 1,000 ML IV SCH ×2 (02:57→16:12)
[2022-08-01] MEDS: PERCOCET TAB 5/325 MG PO PRN ×2 (02:58→10:08)
[2022-08-01] MEDS: REQUIP PO SCH ×3 (05:18→21:06)
[2022-08-01] MEDS: NEURONTIN CAP 100 MG PO SCH ×3 (05:18→21:05)
[2022-08-01] MEDS: ROBAXIN PO SCH ×4 (05:19→22:30)
[2022-08-01] MEDS: SYNTHROID 125 mcg TAB PO SCH (06:11)
[2022-08-01 06:37] LABS: BASOPHILS % (AUTO) 0.8 % (0.2-1.0); EOSINOPHILS # (AUTO) 0.2 x10^3/uL (0.0-0.2); EOSINOPHILS % (AUTO) 3.2 % (0.9-2.9); HEMOGLOBIN 7.8 g/dL (12.0-16.0); LYMPHOCYTES # (AUTO) 0.8 X10^3/uL (1.3-2.9); LYMPHOCYTES % (AUTO) 15.8 % (21.0-51.0); MEAN CORPUSCULAR HGB CONC 33.9 g/dL (33.0-35.0); MEAN CORPUSCULAR VOLUME 91.3 fL (80.0-100.0); MEAN PLATELET VOLUME 8.4 fL (7.4-11.0); MONOCYTES # (AUTO) 0.5 x10^3/uL (0.3-0.8); NEUTROPHILS # (AUTO) 3.3 x10^3/uL (2.2-4.8); NEUTROPHILS % (AUTO) 69.2 % (42.0-75.0); RED BLOOD COUNT 2.52 X10^6/uL (3.5-5.4); RED CELL DISTRIBUTION WIDTH 13.9 % (11.6-16.5); WHITE BLOOD COUNT 4.8 X10^3/uL (3.6-10.0)
[2022-08-01 06:44] LABS: ALANINE AMINOTRANSFERASE 8 Units/L (12-78); ALBUMIN 2.2 g/dL (3.4-5.0); ALKALINE PHOSPHATASE 242 Units/L (46-116); ASPARTATE AMINO TRANSFERASE 21 Units/L (15-37); BLOOD UREA NITROGEN 18 mg/dL (7-18); CALCIUM 8.7 mg/dL (8.5-10.1); CARBON DIOXIDE 34.3 mmol/L (21-32); CHLORIDE 105 mmol/L (98-107); COR CA(FOR HYPOALB) 10.1 mg/dL (8.5-10.1); CREATININE 0.85 mg/dL (0.55-1.02); SODIUM 142 mmol/L (136-145); TOTAL PROTEIN 6.1 g/dL (6.4-8.2); eGFR NON BLACK RACES > 60 (>60)
--- NOTE | 2022-08-01 07:40 | RAD ---
HISTORYShortness of breathSTUDYChest AP [id number] heart is enlarged. No congestive heart failure is noted. Lungs are well inflated with the exception of perihilar subsegmental atelectasis on the left. Haziness in the right lung base may be due to a small pleural effusion and/or some subsegmental atelectasis. Remainder of the lung shi are free of acute infiltrates. A left pleural effusion is likely present and unchanged. Bony thorax is unremarkable.IMPRESSIONNo change cardiomegaly without congestive heart failureLeft perihilar subsegmental atelectasisSuspect bilateral pleural effusionsElectronically signed by: DAGO BOWERS (Aug 01, 2022 07:38:42)
[2022-08-01] MEDS: DUONEB 0.5 MG/3 MG (3 mL) NEB SCH ×4 (08:10→20:15)
[2022-08-01] MEDS: PULMICORT NEB TX 0.5 MG NEB SCH ×2 (08:10→20:15)
[2022-08-01] MEDS ORDERED: LEXAPRO ONE (08:54)
[2022-08-01] MEDS ORDERED: TOPROL XL PO ONE (08:55)
[2022-08-01] MEDS ORDERED: LASIX IVP ONE (08:59)
[2022-08-01] MEDS ORDERED: PROTONIX TAB 40 MG PO SCH (09:00)
[2022-08-01] MEDS ORDERED: LASIX PO SCH (09:00)
[2022-08-01] MEDS ORDERED: VITAMIN D3 125 mcg (5,000 UNITS) PO SCH (09:00)
[2022-08-01] MEDS: LASIX IVP SCH ×2 (09:01→16:15)
[2022-08-01] MEDS: CATAPRES TAB 0.1 MG PO SCH (09:03)
[2022-08-01] MEDS: ASPIRIN EC 81 MG PO SCH (09:03)
[2022-08-01] MEDS: XARELTO PO SCH ×2 (09:04→21:06)
[2022-08-01] MEDS: FOLIC ACID TAB 1 MG PO SCH (09:04)
[2022-08-01] MEDS: LEXAPRO PO SCH (09:04)
[2022-08-01] MEDS: TOPROL XL PO SCH (09:05)
[2022-08-01] MEDS: ZETIA TAB 10 MG PO SCH (09:05)
[2022-08-01] MEDS: VITAMIN D3 125 mcg (5,000 UNITS) PO SCH (09:05)
[2022-08-01] MEDS: PROTONIX TAB 40 MG PO SCH (09:05)
[2022-08-01] MEDS: NU IRON PO SCH (09:05)
[2022-08-01] MEDS: ALBUMIN HUMAN 25%- 100 ML 100 ML IV SCH (09:06)
[2022-08-01] MEDS: VANCOMYCIN IV *PREMIX 1 G/200 ML BAG 1 G/200 ML PIGGYBACK IV SCH ×2 (10:03→21:07)
[2022-08-01] MEDS: DIFLUCAN 200 MG IV PREMIX* 200 MG/100 ML BAG IV SCH (12:44)
--- NOTE | 2022-08-01 13:39 | DR.CONSULT ---
Consult - Consultation for Day of: Date: 07/31/22 - Chief Complaint Chief Complaint: LEFT FOOT WOUND, SOB, WHEEZING - History of Present Illness History of Present Illness: IS A 67 YEAR OLD PATIENT OF . WE WERE CONSULTED FOR MEDICAL MANAGEMENT WHILE HE IS OUT OF TOWN. SHE WAS INITIALLY ADMITTED TO THE HOSPITAL DUE TO NON-HEALING WOUNDS OF THE LEFT FOOT. SHE HAD A FRACTURE OF THE LEFT FOOT WHICH WAS TREATED WITH A CAST BACK IN APRIL. CAST WAS REMOVED AFTER 3 WEEKS AND PRESSURE ULCERS OF THE DORSUM OF THE LEFT FOOT, OVER 5TH METATARSAL PLANTAR SURFACE AND THE LEFT HEEL WERE NOTED. SHE WAS TREATED AT THE [facility] IN [place]. 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 ON 07/26/22, PERFORMED AN AORTOGRAM, ARTERIOGRAM OF LEFT LEG, ATHERECTOMY AND BALLOON ANGIOPLASTY OF THE LEFT PERONEAL ARTERY, DRUG COATED BALLOON ANGIOPLASTY LEFT SUPERFICIAL FEMORAL ARTERY. SHE WAS FOUND TO HAVE AN OCCLUDED LEFT POSTERIOR TIBIAL ARTERY, SEVERE STENOSIS LEFT PERONEAL ARTERY, 75% STENOSIS LEFT DISTAL SUPERFICIAL FEMORAL ARTERY. , [employer], PERFORMED DEBRIDEMENT OF WOUNDS, APPLIED A WOUND VAC, AND A POSTERIOR SPLINT WAS PLACED ON THE LEFT FOOT ON 07/28/22. TODAY, SHE IS ALERT AND ORIENTED, SITTING UP IN BED ON MORNING ROUNDS. SHE COMPLAINS OF WEAKNESS, SHORTNESS OF BREATH, AND ELEVATED TEMPERATURE THROUGHOUT THE NIGHT. IT APPEARS THAT THE HIGHEST HER TEMPERATURE GOT WAS 99.1 THROUGHOUT THE NIGHT. SHE APPARENTLY GOT CHOKED ON FOOT EARLY THIS MORNING AND IS NOW WHEEZING AND SHORT OF BREATH. HER OXYGEN SATURATIONS APPARENTLY DROPPED TO 84%. HER VITALS THIS MORNING WERE: 98.7-71-20-91%-132/61. SHE IS CURRENTLY UTILIZING OXYGEN VIA NASAL CANNULA AT 3 LPM. LABS WERE OBTAINED. WBC 4.6, RBC 2.57, HGB 7.8, HCT 23.3, PLT COUNT 96, SODIUM 139, POTASSIUM 4.3, BUN 13, CREATININE 0.72, GLUCOSE 102, CALCIUM 8.4, ALT 8, ALK PHOS 260, BNP 723, TOTAL PROTEIN 5.6, ALBUMIN 1.7. WOUND CULTURE OF THE LEFT FOOT WAS POSITIVE FOR MRSA. CHEST XRAY WAS OBTAINED AND REVEAELED: Cardiomegaly. New opacity in the right midlung which is favored to represent fluid in the right minor fissure. Small bilateral pleural effusions are present and worsening from prior. Edema like pattern present. Osseous structures demonstrate no acute abnormality. ABG WAS OBTAINED AND REVEALED: PH 7.350, PC02 63, P02 73, HC03 34.8, 02 SAT 94, BASE EXCESS 7.2, A-A GRADIENT 76, FI02 32. SHE IS CURRENTLY RECEIVING LACTATED RINGERS AT 80 ML/HR, DILAUDID 1MG IV Q4H PRN, ECOTRIN 81MG PO DAILY, CATAPRES 0.1MG PO BID PRN, COLACE 100MG PO HX, LEXAPRO 10MG PO DAILY, ZETIA 10MG PO DAILY, FOLIC ACID 1MG PO DAILY, NEURONTIN 200MG PO TID, SYNTHROID 125MCG PO DAILY, MELATONIN 10MG PO HS, ROBAXIN 500MG PO TID, TOPROL XL 100MG PO DAILY, SINGULAIR 10MG PO HS, PERCOCET 5/325MG PO Q6H PRN, PROTONIX 40MG PO DAILY, XARELTO 2.5MG PO BID, AND REQUIP 0.25MG PO TID. TODAY, WE WILL ADD VANCOMYCIN 1G IV Q12H, ALBUMIN 25% IV DAILY, DUONEBS QID, PULMICORT NEBS BID, LASIX 40MG IV BID. WE WILL OBTAIN AN ECHO THIS MORNING. OTHERWISE, WE PLAN TO FOLLOW-UP WITH AM LABS AND CONTINUE TO MONITOR. OR HIS ASSOCIATES WILL MONITOR FOOT WOUNDS. TIME SPENT ON CLINICAL ASSESSMENT, REVIWING LABS AND IMAGING, DECISION MAKING, AND DOCUMENTATION GREATER THAN 75 MINUTES. - Past Medical History Past Medical History: Anemia, Arthritis (Right knee), CHF, COPD, GERD, Hypertension, Hypothyroidism - Past Surgical History Surgical History: Ortho Surgery - Family History Family Medical History: Sudden Cardiac - Social History Does patient currently use any type of tobacco product: No Have you used tobacco products in the last 12 months: No Type of Tobacco Use: Cigarettes How many years tobacco product used: 25 Alcohol Use: DAILY Drug Use: None - Medications Home Medications: No Known Drug Allergies Allergy (Verified 07/23/22 21:06) CONTINUE taking the following medications aspirin 81 mg chewable tablet 81 mg PO QDAY 07/23/22 [History] cholecalciferol (vitamin D3) 125 mcg (5,000 unit) tablet (Vitamin D3) 125 mcg PO QAM 07/23/22 [History] clonidine HCl 0.1 mg tablet 1 tab PO TID PRN blood pressure 07/23/22 [History] clopidogrel 75 mg tablet 1 tab PO QDAY 07/23/22 [History] docusate sodium 100 mg capsule 1 cap PO BID 07/23/22 [History] escitalopram oxalate 10 mg tablet 1 tab PO QDAY 07/23/22 [History] ezetimibe 10 mg tablet 1 tab PO QDAY 07/23/22 [History] folic acid 1 mg tablet 1 tab PO QDAY anemia 07/23/22 [History] furosemide 20 mg tablet 20 mg PO QAM 07/23/22 [History] gabapentin 100 mg capsule 1 cap PO 6XD 07/23/22 [History] hydrocodone 5 mg-acetaminophen 325 mg tablet 1 tab PO Q6H PRN 07/23/22 [History] levothyroxine 50 mcg tablet (Synthroid) 1 tab PO QDAY 07/23/22 [History] magnesium citrate 100 mg capsule 200 mg PO QAM 07/23/22 [History] melatonin 10 mg tablet 10 mg PO HS PRN 07/23/22 [History] methocarbamol 500 mg tablet 1 tab PO TID 07/23/22 [History] metoprolol succinate 100 mg tablet,extended release 24 hr 1 tab PO QDAY 07/23/22 [History] montelukast 10 mg tablet 1 tab PO QDAY 07/23/22 [History] mupirocin 2 % topical ointment 1 ea topical BID 07/23/22 [History] pantoprazole 40 mg tablet,delayed release 1 tab PO QDAY 07/23/22 [History] polysaccharide iron complex 150 mg iron capsule 1 cap PO QDAY 07/23/22 [History] ropinirole 0.5 mg tablet 1 tab PO QDAY 07/23/22 [History] vit C 250 mg-vit E 90 mg-zinc 40 mg-copper 1 sm-vovmyl-umdzsk capsule (PreserVision AREDS-2) 1 cap PO QHS 07/23/22 [History] - Review of Systems Constitutional: Chills, Weakness Eyes: No Symptoms Reported ENT: No Symptoms Reported Respiratory: Cough, Shortness of Breath, Wheezing Cardiovascular: No Symptoms Reported Gastrointestinal: No Symptoms Reported Genitourinary: No Symptoms Reported Musculoskeletal: Foot Pain (LEFT FOOT PAIN ) Skin: Wound (LEFT FOOT, MULTIPLE WOUNDS ) Neurological: Weakness - Physical Exam Vital Signs: Temperature 97.3 F Pulse Rate [Left Brachial] 70 Pulse Rate [Right Brachial] 90 Pulse Rate 86 Respiratory Rate 20 Blood Pressure [Left Arm] 121/59 Blood Pressure [Right Arm] 148/68 Blood Pressure 126/58 O2 Sat by Pulse Oximetry 92 Oriented: Normal Eyes: Normal Ear: Normal Nose: Normal Throat: Normal Respiratory: Diminished Throughout, Wheezes Throughout Cardiovascular: Normal : Normal Auscultation: Bowel Sounds: Normal Palpation: Normal Tenderness: Normal Skin: Decreased Turgur, Wound (MULTIPLE LEFT FOOT WOUNDS ) Musculoskeletal: Normal Psychiatric: Normal Mood Description: Calm Affect: Normal Speech Pattern: Clear - Plan Plan: CONTINUE WOUND CARE, IV ANTIBITOTICS, NEB TREATMENTS, IV LASIX, BIPAP, CONTINUE TO MONITOR. - Allergies Allergies/Adverse Reactions: Allergies Allergy/AdvReac Type Severity Reaction Status Date / Time No Known Drug Allergies Allergy Verified 07/23/22 21:06
[2022-08-01] MEDS ORDERED: PHARMACY COMMENT IV NR (20:30)
[2022-08-01 20:46] LABS: CREATININE 0.88 mg/dL (0.55-1.02); VANCOMYCIN,TROUGH 18.4 ug/mL (15-20)
[2022-08-01] MEDS: MELATONIN PO SCH (21:05)
[2022-08-01] MEDS: COLACE CAP 100 MG PO SCH (21:06)
[2022-08-01] MEDS: SINGULAIR TAB 10 MG PO SCH (21:06)
[2022-08-02] MEDS: NORCO 5/325 MG TAB PO PRN (00:31)
[2022-08-02] MEDS: LR 1,000 ML IV 1,000 ML IV SCH (04:40)
[2022-08-02] MEDS: ROBAXIN PO SCH ×3 (05:00→21:28)
[2022-08-02] MEDS: REQUIP PO SCH ×3 (05:19→21:27)
[2022-08-02] MEDS: NEURONTIN CAP 100 MG PO SCH ×3 (05:19→21:28)
[2022-08-02] MEDS: PERCOCET TAB 5/325 MG PO PRN (05:24)
[2022-08-02] MEDS: SYNTHROID 125 mcg TAB PO SCH (05:33)
[2022-08-02 06:26] LABS: BASOPHILS # (AUTO) 0.1 X10^3/uL (0.0-0.1); BASOPHILS % (AUTO) 0.6 % (0.2-1.0); EOSINOPHILS # (AUTO) 0.2 x10^3/uL (0.0-0.2); EOSINOPHILS % (AUTO) 2.2 % (0.9-2.9); HEMATOCRIT 23.7 % (36.0-47.0); HEMOGLOBIN 8.1 g/dL (12.0-16.0); LYMPHOCYTES % (AUTO) 12.4 % (21.0-51.0); MEAN CORPUSCULAR HEMOGLOBIN 31.1 pg (27.0-34.0); MEAN CORPUSCULAR HGB CONC 34.1 g/dL (33.0-35.0); MEAN CORPUSCULAR VOLUME 91.1 fL (80.0-100.0); MEAN PLATELET VOLUME 8.1 fL (7.4-11.0); MONOCYTES # (AUTO) 0.7 x10^3/uL (0.3-0.8); MONOCYTES % (AUTO) 8.8 % (0.0-13.0); NEUTROPHILS # (AUTO) 6.1 x10^3/uL (2.2-4.8); RED CELL DISTRIBUTION WIDTH 13.9 % (11.6-16.5)
[2022-08-02 06:39] LABS: ALANINE AMINOTRANSFERASE 8 Units/L (12-78); ALBUMIN 2.5 g/dL (3.4-5.0); ALKALINE PHOSPHATASE 237 Units/L (46-116); ASPARTATE AMINO TRANSFERASE 19 Units/L (15-37); BLOOD UREA NITROGEN 22 mg/dL (7-18); CALCIUM 8.8 mg/dL (8.5-10.1); CARBON DIOXIDE 35.9 mmol/L (21-32); CHLORIDE 103 mmol/L (98-107); CREATININE 0.75 mg/dL (0.55-1.02); SODIUM 142 mmol/L (136-145); TOTAL PROTEIN 6.3 g/dL (6.4-8.2); eGFR NON BLACK RACES > 60 (>60)
[2022-08-02] MEDS ORDERED: TOPROL XL PO ONE (08:17)
[2022-08-02] MEDS ORDERED: LEXAPRO ONE (08:17)
--- NOTE | 2022-08-02 08:18 | RAD ---
HISTORYShortness of breathSTUDYChest AP [id number] heart is enlarged. No definite congestive heart failure is noted. Lungs are well inflated with the exception right basilar and left perihilar subsegmental atelectasis unchanged from the prior examination. No definite acute alveolar infiltrates or pleural effusions are identified. Bony thorax is unremarkable.IMPRESSIONMild cardiomegaly without congestive heart failureNo acute infiltratesRight basilar left perihilar subsegmental atelectasisElectronically signed by: DAGO BOWERS (Aug 02, 2022 08:17:17)
[2022-08-02] MEDS: DIFLUCAN 200 MG IV PREMIX* 200 MG/100 ML BAG IV SCH (08:29)
[2022-08-02] MEDS: NU IRON PO SCH (08:30)
[2022-08-02] MEDS: XARELTO PO SCH ×2 (08:30→20:33)
[2022-08-02] MEDS: ALBUMIN HUMAN 25%- 100 ML 100 ML IV SCH ×2 (08:30→20:35)
[2022-08-02] MEDS: TOPROL XL PO SCH (08:31)
[2022-08-02] MEDS: ZETIA TAB 10 MG PO SCH (08:31)
[2022-08-02] MEDS: ASPIRIN EC 81 MG PO SCH (08:31)
[2022-08-02] MEDS: PROTONIX TAB 40 MG PO SCH (08:32)
[2022-08-02] MEDS: VITAMIN D3 125 mcg (5,000 UNITS) PO SCH (08:32)
[2022-08-02] MEDS: LEXAPRO PO SCH (08:32)
[2022-08-02] MEDS: FOLIC ACID TAB 1 MG PO SCH (08:33)
[2022-08-02] MEDS: DUONEB 0.5 MG/3 MG (3 mL) NEB SCH ×4 (08:42→21:00)
[2022-08-02] MEDS: PULMICORT NEB TX 0.5 MG NEB SCH ×2 (08:42→21:00)
[2022-08-02 09:11] LABS: CREATININE 0.67 mg/dL (0.55-1.02)
[2022-08-02 09:23] LABS: VANCOMYCIN,TROUGH 21.2 ug/mL (15-20)
[2022-08-02] MEDS: DIFLUCAN PO SCH (09:44)
[2022-08-02] MEDS: VANCOMYCIN IV *PREMIX 1 G/200 ML BAG 1 G/200 ML PIGGYBACK IV SCH (09:45)
[2022-08-02] MEDS: LASIX IVP SCH ×2 (10:11→16:07)
[2022-08-02] MEDS: RIFADIN PO SCH ×2 (10:12→20:32)
[2022-08-02] MEDS: ATIVAN TAB 0.5 MG PO PRN ×2 (12:17→20:25)
[2022-08-02] MEDS: LEVAQUIN TAB 500 MG PO SCH (13:07)
[2022-08-02] MEDS: MELATONIN PO SCH (20:31)
[2022-08-02] MEDS: COLACE CAP 100 MG PO SCH (20:32)
[2022-08-02] MEDS: SINGULAIR TAB 10 MG PO SCH (20:33)
--- NOTE | 2022-08-02 20:50 | NOTE.SOAP ---
Soap Note Note for Day of Date of Exam: 08/02/22 Subjective Data Subjective Data: I have been out of town several days and patient has been cared for By Dr. Scott's service. Mandy had choking episode and has had elevated BNP . Receiving diuretics and is doing better. Wound vacuumm ( RITA ) removed because it was not maintaining a seal. I had performed ngioplasty of left SFA and atherectomy and drug coated balloon angioplasty of the left tibial - peroneal trunk. Objective Data Temperature: 99.2 F Pulse Rate: 90 Respiratory Rate: 17 Blood Pressure: 140/63 O2 Sat by Pulse Oximetry: 90 Objective Data: Left leg with dressing , left toes are warm. Lungs clear to auscultation. Assessment Assessment: Revascularization of left leg, debridement of left foot wounds, complicated by congestive heart failure. Treated with diuretics . Left foot warm. Plan Plan: If SOB and BNP improved will probaly d/c to SNF ( bed is available ) tomorrow.
[2022-08-03] MEDS: ROBAXIN PO SCH ×3 (05:20→21:22)
[2022-08-03] MEDS: REQUIP PO SCH ×3 (05:21→21:21)
[2022-08-03] MEDS: NEURONTIN CAP 100 MG PO SCH ×3 (05:21→21:21)
[2022-08-03] MEDS: NORCO 5/325 MG TAB PO PRN (05:24)
[2022-08-03] MEDS: SYNTHROID 125 mcg TAB PO SCH (05:33)
[2022-08-03 06:43] LABS: BASOPHILS # (AUTO) 0.1 X10^3/uL (0.0-0.1); BASOPHILS % (AUTO) 0.5 % (0.2-1.0); EOSINOPHILS # (AUTO) 0.3 x10^3/uL (0.0-0.2); EOSINOPHILS % (AUTO) 2.3 % (0.9-2.9); HEMATOCRIT 23.5 % (36.0-47.0); LYMPHOCYTES # (AUTO) 0.8 X10^3/uL (1.3-2.9); LYMPHOCYTES % (AUTO) 7.5 % (21.0-51.0); MEAN CORPUSCULAR HEMOGLOBIN 30.9 pg (27.0-34.0); MEAN CORPUSCULAR HGB CONC 33.9 g/dL (33.0-35.0); MEAN CORPUSCULAR VOLUME 91.2 fL (80.0-100.0); MEAN PLATELET VOLUME 7.8 fL (7.4-11.0); MONOCYTES # (AUTO) 0.9 x10^3/uL (0.3-0.8); MONOCYTES % (AUTO) 8.1 % (0.0-13.0); NEUTROPHILS # (AUTO) 8.9 x10^3/uL (2.2-4.8); NEUTROPHILS % (AUTO) 81.6 % (42.0-75.0); RED BLOOD COUNT 2.57 X10^6/uL (3.5-5.4); WHITE BLOOD COUNT 10.9 X10^3/uL (3.6-10.0)
[2022-08-03 06:55] LABS: ALANINE AMINOTRANSFERASE 10 Units/L (12-78); ALBUMIN 3.1 g/dL (3.4-5.0); ALKALINE PHOSPHATASE 215 Units/L (46-116); ASPARTATE AMINO TRANSFERASE 20 Units/L (15-37); BLOOD UREA NITROGEN 20 mg/dL (7-18); CALCIUM 8.6 mg/dL (8.5-10.1); CARBON DIOXIDE 39.2 mmol/L (21-32); CHLORIDE 101 mmol/L (98-107); COR CA(FOR HYPOALB) 9.3 mg/dL (8.5-10.1); CREATININE 0.76 mg/dL (0.55-1.02); SODIUM 146 mmol/L (136-145); TOTAL PROTEIN 6.8 g/dL (6.4-8.2); eGFR NON BLACK RACES > 60 (>60)
--- NOTE | 2022-08-03 07:32 | RAD ---
HISTORYISCHEMIC LEFT LEG W/OPEN WOUND; SOBSTUDYCHEST, 1 [id number]/2022.TECHNIQUEAP view of the chestFINDINGSThe cardiac silhouette is stably enlarged. Mediastinal contours appear stable. Subsegmental atelectasis in the perihilar lung bilaterally. Blunted costophrenic sulci. No pneumothorax. Elevated right hemidiaphragm.IMPRESSIONBilateral subsegmental atelectasis. Blunted costophrenic sulci can be seen with small pleural effusions or pleuro-parynchemal scarring.Electronically signed by: Dirk Rivas (Aug 03, 2022 07:31:19)
[2022-08-03] MEDS ORDERED: LEXAPRO ONE (07:46)
[2022-08-03] MEDS ORDERED: TOPROL XL PO ONE (07:47)
[2022-08-03] MEDS: LASIX IVP SCH ×2 (08:31→16:54)
[2022-08-03] MEDS: DUONEB 0.5 MG/3 MG (3 mL) NEB SCH ×4 (08:48→20:40)
[2022-08-03] MEDS: PULMICORT NEB TX 0.5 MG NEB SCH ×2 (08:49→20:40)
[2022-08-03] MEDS: DIFLUCAN PO SCH (10:24)
[2022-08-03] MEDS: TOPROL XL PO SCH (10:25)
[2022-08-03] MEDS: LEVAQUIN TAB 500 MG PO SCH (10:25)
[2022-08-03] MEDS: XARELTO PO SCH ×2 (10:25→21:20)
[2022-08-03] MEDS: ZETIA TAB 10 MG PO SCH (10:25)
[2022-08-03] MEDS: NU IRON PO SCH (10:26)
[2022-08-03] MEDS: FOLIC ACID TAB 1 MG PO SCH (10:26)
[2022-08-03] MEDS: RIFADIN PO SCH ×2 (10:26→21:21)
[2022-08-03] MEDS: PROTONIX TAB 40 MG PO SCH (10:26)
[2022-08-03] MEDS: LEXAPRO PO SCH (10:26)
[2022-08-03] MEDS: VITAMIN D3 125 mcg (5,000 UNITS) PO SCH (10:27)
[2022-08-03] MEDS: ASPIRIN EC 81 MG PO SCH (10:27)
[2022-08-03 10:48] LABS: ABG BASE EXCESS 19.8 mmol/L (-2.0-2.0)
[2022-08-03 10:49] LABS: ABG ALLEN TEST POS
--- NOTE | 2022-08-03 11:02 | PCM.PROG ---
Progress Note - Progress Note for Day of Date of Exam: 08/01/22 - Subjective Subjective: IS CURRENTLY BEING TREATED FOR LEFT FOOT NON-HEALING WOUND, BILATERAL PLEURAL EFFUSIONS, CHF, AND SHORTNESS OF BREATH. SHE IS STATUS REVASCULARIZATION OF THE LEFT LEG AND DEBRIDEMENT OF WOUNDS TO THE LEFT LEG. TODAY, SHE IS ALERT AND ORIENTED, LYING IN BED ON MORNING ROUNDS. SHE CONTINUES WITH COMPLAINTS OF SHORTNESS OF BREATH, WEAKNESS, AND ALSO REPORTS SOME ANXIETY THIS MORNING. HER VITALS THIS MORNING ARE: 98.5-63-18-92%-138/65. LABS WERE OBTAINED. WBC 4.8, RBC 2.52, HGB 7.8, HCT 23.0, PLT COUNT 104, SODIUM 142, POTASSIUM 4.2, CHLORIDE 105, CARBON DIOXIDE 34.3, BUN 18, CREATININE 0.85, GLUCOSE 94, CALCIUM 8.7, AST 21, ALT 8, ALK PHOS 242, BNP 372, TOTAL PROTEIN 6.1, ALBUMIN 2.2. 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 SPUTUM CULTURE IS PENDING. A CHEST XRAY WAS OBTAINED TODAY AND REVEALED: No change cardiomegaly without congestive heart failure.Left perihilar subsegmental atelectasis. Suspect bilateral pleural effusions. ECHO REVEALED AN EJECTION FRACTION OF 63%, MILD TO MODERATE PULMONARY HTN, RVSP 41mmHg. SHE IS CURRENTLY RECEIVING LACTATED RINGERS AT 20 ML/HR, VANCOMYCIN 1G IV Q12H, ALBUMIN 25% IV DAILY, DUONEBS QID, PULMICORT NEBS BID, LASIX 40MG IV BID, DILAUDID 1MG IV Q4H PRN, ECOTRIN 81MG PO DAILY, CATAPRES 0.1MG PO BID PRN, COLACE 100MG PO HX, LEXAPRO 10MG PO DAILY, ZETIA 10MG PO DAILY, FOLIC ACID 1MG PO DAILY, NEURONTIN 200MG PO TID, SYNTHROID 125MCG PO DAILY, MELATONIN 10MG PO HS, ROBAXIN 500MG PO TID, TOPROL XL 100MG PO DAILY, SINGULAIR 10MG PO HS, PERCOCET 5/325MG PO Q6H PRN, PROTONIX 40MG PO DAILY, XARELTO 2.5MG PO BID, AND REQUIP 0.25MG PO TID. TODAY, WE WILL ADD LORAZEPAM 0.5MG PO BID. SHE WAS ENCOURAGED TO WEAR THE BIPAP THROUGHOUT THE DAY. SHE VERBALIZED UNDERSTANDING. OR HIS ASSOCIATES WILL MONITOR FOOT WOUNDS. OTHERWISE, WE WILL FOLLOW-UP WITH AM LABS AND CONTINUE TO MONITOR. TIME SPENT ON CLINICAL ASSESSMENT, REVIWING LABS AND IMAGING, DECISION MAKING, AND DOCUMENTATION GREATER THAN 45 MINUTES. - Past Medical Family Social History Past Med/Fam/Surg Hx: No changes since H&P Allergies: Allergies No Known Drug Allergies Allergy (Verified 07/23/22 21:06) - Review of Systems ROS: No change since H&P - Vital Signs and I&O's Vital Signs: Temperature 98.9 F Pulse Rate [Left Brachial] 70 Pulse Rate [Right Brachial] 101 Pulse Rate 95 Respiratory Rate 20 Blood Pressure [Left Arm] 145/66 Blood Pressure [Right Arm] 116/64 Blood Pressure 140/63 O2 Sat by Pulse Oximetry 95 Intake and Output: Intake & Output 07/31/22 08/01/22 08/02/22 08/03/22 11:59 11:59 11:59 11:59 Intake Total 2240 / 2240 1068 / 1068 4104 / 4104 992 / 992 Output Total 2780 / 2780 5650 / 5650 2840 / 2840 Balance 2235 / 2235 -1712 / -1712 -1546 / -1546 -1848 / -1848 - Physical Exam Oriented: Normal Eyes: Normal Ear: Normal Nose: Normal Throat: Normal Respiratory: Generalized, Diminished Cardiovascular: Normal : Normal Auscultation: Bowel Sounds: Normal Palpation: Normal Tenderness: Normal Skin: Decreased Turgur, Wound (MULTIPLE LEFT FOOT WOUNDS ) Musculoskeletal: Normal Psychiatric: Normal Mood Description: Calm Affect: Normal Speech Pattern: Appropriate - Laboratory and Diagnostics Result Diagrams: 08/03/22 06:00 08/03/22 06:00 Labs: 07/31/22 09:00 Sputum - Expectorated Sputum Sputum Culture - Preliminary 07/31/22 09:00 Sputum - Expectorated Sputum - Final 07/27/22 15:30 Foot - Left Wound Gram Stain - Final 07/27/22 15:30 Foot - Left Wound Culture - Final Methicillin Resis Staph Aureus 07/27/22 15:30 Foot - Left Wound Gram Stain - Final 07/27/22 15:30 Foot - Left Wound Culture - Final Laboratory WBC 10.9 X10^3/uL (3.6-10.0) H 08/03/22 06:00 RBC 2.57 X10^6/uL (3.5-5.4) L 08/03/22 06:00 Hgb 8.0 g/dL (12.0-16.0) L 08/03/22 06:00 Hct 23.5 % (36.0-47.0) L 08/03/22 06:00 MCV 91.2 fL (80.0-100.0) 08/03/22 06:00 MCH 30.9 pg (27.0-34.0) 08/03/22 06:00 MCHC 33.9 g/dL (33.0-35.0) 08/03/22 06:00 RDW 14.0 % (11.6-16.5) 08/03/22 06:00 Plt Count 135 X10^3/uL (150.0-450.0) L 08/03/22 06:00 Plt Count Comment Decreased (ADEQUATE) A 07/30/22 05:32 MPV 7.8 fL (7.4-11.0) 08/03/22 06:00 Neut % (Auto) 81.6 % (42.0-75.0) H 08/03/22 06:00 Lymph % (Auto) 7.5 % (21.0-51.0) L 08/03/22 06:00 [place] % (Auto) 8.1 % (0.0-13.0) 08/03/22 06:00 Eos % (Auto) 2.3 % (0.9-2.9) 08/03/22 06:00 Baso % (Auto) 0.5 % (0.2-1.0) 08/03/22 06:00 Neut # (Auto) 8.9 x10^3/uL (2.2-4.8) H 08/03/22 06:00 Lymph # (Auto) 0.8 X10^3/uL (1.3-2.9) L 08/03/22 06:00 [place] # (Auto) 0.9 x10^3/uL (0.3-0.8) H 08/03/22 06:00 Eos # (Auto) 0.3 x10^3/uL (0.0-0.2) H 08/03/22 06:00 Baso # (Auto) 0.1 X10^3/uL (0.0-0.1) 08/03/22 06:00 Absolute Nucleated RBC 0.0 /100WBC 08/03/22 06:00 Total Counted 100 07/30/22 05:32 Neutrophils % (Manual) 62 % (39-76) 07/30/22 05:32 Band Neutrophils % 3 % (0-10) 07/30/22 05:32 Lymphocytes % (Manual) 20 % (13-43) 07/30/22 05:32 Monocytes % (Manual) 8 % (4-9) 07/30/22 05:32 Eosinophils % (Manual) 3 % (0-6) 07/30/22 05:32 Metamyelocytes % 4 07/30/22 05:32 Plt Morphology Comment Normal (NORMAL) 07/30/22 05:32 RBC Morphology Normal (NORMAL) 07/30/22 05:32 PT 15.8 SECONDS (11.8-14.3) 07/24/22 05:32 INR Target Range - 07/24/22 05:32 INR 1.31 (0.8-1.3) H 07/24/22 05:32 APTT 29.2 SECONDS (22.9-36.5) 07/24/22 05:32 PTT Comment - 07/24/22 05:32 Sample Site Rrad 08/03/22 10:45 ABG pH 7.390 (7.35-7.45) 08/03/22 10:45 ABG pCO2 81.0 mmHg (35.0-45.0) H* 08/03/22 10:45 ABG pO2 65.0 mmHg (80.0-100.0) L 08/03/22 10:45 ABG HCO3 49.0 mmol/L (22-26) H* 08/03/22 10:45 ABG O2 Saturation 92.0 % (90-100) 08/03/22 10:45 ABG Base Excess 19.8 mmol/L (-2.0-2.0) H 08/03/22 10:45 Lenard Test Pos 08/03/22 10:45 A-a Gradient 190.0 mmHg 08/03/22 10:45 FiO2 50.0 08/03/22 10:45 Blood Gas Comments Camilla well ms/eb 08/03/22 10:45 Sodium 146 mmol/L (136-145) H 08/03/22 06:00 Corrected Sodium TNP 08/03/22 06:00 Potassium 3.8 mmol/L (3.5-5.1) 08/03/22 06:00 Chloride 101 mmol/L (98-107) 08/03/22 06:00 Carbon Dioxide 39.2 mmol/L (21-32) H 08/03/22 06:00 BUN 20 mg/dL (7-18) H 08/03/22 06:00 Creatinine 0.76 mg/dL (0.55-1.02) 08/03/22 06:00 Est GFR (MDRD) Af Amer > 60 (>60) 08/03/22 06:00 Est GFR (MDRD) Non-Af > 60 (>60) 08/03/22 06:00 Glucose 100 mg/dL (65-99) H 08/03/22 06:00 POC Glucose (mg/dL) 148 mg/dL (65-99) H 07/27/22 08:37 Calcium 8.6 mg/dL (8.5-10.1) 08/03/22 06:00 Corrected Calcium 9.3 mg/dL (8.5-10.1) 08/03/22 06:00 Total Bilirubin 2.30 mg/dL (0.2-1.0) H 08/03/22 06:00 AST 20 Units/L (15-37) 08/03/22 06:00 ALT 10 Units/L (12-78) L 08/03/22 06:00 Alkaline Phosphatase 215 Units/L (46-116) H 08/03/22 06:00 B-Natriuretic Peptide 894 pg/mL (0-79) H* 08/03/22 06:00 Total Protein 6.8 g/dL (6.4-8.2) 08/03/22 06:00 Albumin 3.1 g/dL (3.4-5.0) L 08/03/22 06:00 Globulin 3.7 g/dL (2.5-4.5) 08/03/22 06:00 Albumin/Globulin Ratio 0.8 Ratio (1.1-2.1) L 08/03/22 06:00 Specimen Type Catherized urine 07/31/22 11:05 Urine Color Yellow (YELLOW) 07/31/22 11:05 Urine Appearance Clear (CLEAR) 07/31/22 11:05 Urine pH 6.0 (5.0 - 8.0) 07/31/22 11:05 Ur Specific [place] 1.015 (1.000-1.030) 07/31/22 11:05 Urine Protein 1+ (NEGATIVE) 07/31/22 11:05 Urine Glucose (UA) Negative (NEGATIVE) 07/31/22 11:05 Urine Ketones Negative (NEGATIVE) 07/31/22 11:05 Urine Blood 1+ (NEGATIVE) 07/31/22 11:05 Urine Nitrite Negative (NEGATIVE) 07/31/22 11:05 Urine Bilirubin Negative (NEGATIVE) 07/31/22 11:05 Urine Urobilinogen Normal (NORMAL) 07/31/22 11:05 Ur Leukocyte Esterase Negative (NEGATIVE) 07/31/22 11:05 Urine RBC 0-2 /HPF (0-3) 07/31/22 11:05 Urine WBC 0-2 /HPF (0-5) 07/31/22 11:05 Ur Squamous Epith Cells Rare /HPF (NEGATIVE) 07/31/22 11:05 Calcium Oxalate Crystal Rare /HPF (NEGATIVE) 07/31/22 11:05 Urine Bacteria Negative /HPF (NEGATIVE) 07/31/22 11:05 Hyaline Casts Rare /LPF (NEGATIVE) 07/31/22 11:05 Urine Mucus Rare /HPF (NEGATIVE) 07/31/22 11:05 Ur Culture Indicated? No/not indicated 07/31/22 11:05 Vancomycin Trough 21.2 ug/mL (15-20) H* 08/02/22 05:26 SARS-CoV-2 (PCR) Negative (NEGATIVE) 08/02/22 13:15 SARS CoV-2 RNA Rapid SURI Cancelled 08/02/22 13:15 - Plan (1) Wound of left ankle Status: Acute Qualifiers: Encounter type: initial encounter Qualified Code(s): S91.002A - Unspecified open wound, left ankle, initial encounter (2) Ischemia of left lower extremity Status: Acute (3) Pleural effusion due to CHF (congestive heart failure) Status: Acute (4) Pulmonary edema Status: Acute Qualifiers: Chronicity: acute Qualified Code(s): J81.0 - Acute pulmonary edema
--- NOTE | 2022-08-03 11:08 | PCM.PROG ---
Progress Note - Progress Note for Day of Date of Exam: 08/02/22 - Subjective Subjective: IS CURRENTLY BEING TREATED FOR LEFT FOOT NON-HEALING WOUND, BILATERAL PLEURAL EFFUSIONS, CHF, AND SHORTNESS OF BREATH. SHE IS STATUS REVASCULARIZATION OF THE LEFT LEG AND DEBRIDEMENT OF WOUNDS TO THE LEFT LEG. TODAY, SHE IS ALERT AND ORIENTED, LYING IN BED ON MORNING ROUNDS. SHE CONTINUES WITH COMPLAINTS OF SHORTNESS OF BREATH, WEAKNESS. HSE REPORTS THAT SHORTNESS OF BREATH IS SLIGHTLY WORSE THIS MORNING. SHE DID NOT WEAR THE BIPAP MUCH AT ALL YESTERDAY. HER VITALS THIS MORNING ARE: 98.6-89-18-95%-130/62. LABS WERE OBTAINED. WBC 8.0, RBC 2.60, HGB 8.1, HCT 23.7, PLT COUNT 120, SODIUM 142, POTASSIUM 4.1, CARBON DIOXIDE 35.9, BUN 22, CREATININE 0.75, GLUCOSE 86, AST 19, ALT 8, ALK PHOS 237, BNP 1030, TOTAL PROTEIN 6.3, ALBUMIN 2.5. 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 SPUTUM CULTURE IS POSITIVE FOR YEAST AND GRAM NEATIVE RODS. A CHEST XRAY WAS OBTAINED TODAY AND REVEALED: Mild cardiomegaly without congestive heart failure. No acute infiltrates. Right basilar left perihilar subsegmental atelectasis. SHE IS CURRENTLY RECEIVING LACTATED RINGERS AT 20 ML/HR, VANCOMYCIN 1G IV Q12H, ALBUMIN 25% IV DAILY, DIFLUCAN 200MG IV DAILY, DUONEBS QID, PULMICORT NEBS BID, LASIX 40MG IV BID, DILAUDID 1MG IV Q4H PRN, ATIVAN 0.5MG PO BID, ECOTRIN 81MG PO DAILY, CATAPRES 0.1MG PO BID PRN, COLACE 100MG PO HX, LEXAPRO 10MG PO DAILY, ZETIA 10MG PO DAILY, FOLIC ACID 1MG PO DAILY, NEURONTIN 200MG PO TID, SYNTHROID 125MCG PO DAILY, MELATONIN 10MG PO HS, ROBAXIN 500MG PO TID, TOPROL XL 100MG PO DAILY, SINGULAIR 10MG PO HS, PERCOCET 5/325MG PO Q6H PRN, PROTONIX 40MG PO DAILY, XARELTO 2.5MG PO BID, AND REQUIP 0.25MG PO TID. DUE TO INCREASING SHORTNESS OF BREATH AND INCREASING BNP, WE WILL CHANGE THE DIFLUCAN TO 100MG PO DAILY, START RIFAMPIN 300MG PO BID, LEVAQUIN 500MG PO DAILY, AND DISCONTINUE THE VANCOMYCIN. SHE WAS ENCOURAGED TO WEAR THE BIPAP THROUGHOUT THE DAY. SHE VERBALIZED UNDERSTANDING. OR HIS ASSOCIATES WILL MONITOR FOOT WOUNDS. OTHERWISE, WE WILL FOLLOW-UP WITH AM LABS AND CONTINUE TO MONITOR. TIME SPENT ON CLINICAL ASSESSMENT, REVIWING LABS AND IMAGING, DECISION MAKING, AND DOCUMENTATION GREATER THAN 45 MINUTES. - Past Medical Family Social History Past Med/Fam/Surg Hx: No changes since H&P Allergies: Allergies No Known Drug Allergies Allergy (Verified 07/23/22 21:06) - Review of Systems ROS: No change since H&P - Vital Signs and I&O's Vital Signs: Temperature 98.9 F Pulse Rate [Left Brachial] 70 Pulse Rate [Right Brachial] 101 Pulse Rate 95 Respiratory Rate 20 Blood Pressure [Left Arm] 145/66 Blood Pressure [Right Arm] 116/64 Blood Pressure 140/63 O2 Sat by Pulse Oximetry 95 Intake and Output: Intake & Output 07/31/22 08/01/22 08/02/22 08/03/22 11:59 11:59 11:59 11:59 Intake Total 2240 / 2240 1068 / 1068 4104 / 4104 992 / 992 Output Total 2780 / 2780 5650 / 5650 2840 / 2840 Balance 2235 / 2235 -1712 / -1712 -1546 / -1546 -1848 / -1848 - Physical Exam Oriented: Normal Eyes: Normal Ear: Normal Nose: Normal Throat: Normal Respiratory: Generalized, Diminished Cardiovascular: Normal : Normal Auscultation: Bowel Sounds: Normal Palpation: Normal Tenderness: Normal Skin: Decreased Turgur, Wound (MULTIPLE LEFT FOOT WOUNDS ) Musculoskeletal: Normal Psychiatric: Normal Mood Description: Calm Affect: Normal Speech Pattern: Appropriate - Laboratory and Diagnostics Result Diagrams: 08/03/22 06:00 08/03/22 06:00 Labs: 07/31/22 09:00 Sputum - Expectorated Sputum Sputum Culture - Preliminary 07/31/22 09:00 Sputum - Expectorated Sputum - Final 07/27/22 15:30 Foot - Left Wound Gram Stain - Final 07/27/22 15:30 Foot - Left Wound Culture - Final Methicillin Resis Staph Aureus 07/27/22 15:30 Foot - Left Wound Gram Stain - Final 07/27/22 15:30 Foot - Left Wound Culture - Final Laboratory WBC 10.9 X10^3/uL (3.6-10.0) H 08/03/22 06:00 RBC 2.57 X10^6/uL (3.5-5.4) L 08/03/22 06:00 Hgb 8.0 g/dL (12.0-16.0) L 08/03/22 06:00 Hct 23.5 % (36.0-47.0) L 08/03/22 06:00 MCV 91.2 fL (80.0-100.0) 08/03/22 06:00 MCH 30.9 pg (27.0-34.0) 08/03/22 06:00 MCHC 33.9 g/dL (33.0-35.0) 08/03/22 06:00 RDW 14.0 % (11.6-16.5) 08/03/22 06:00 Plt Count 135 X10^3/uL (150.0-450.0) L 08/03/22 06:00 Plt Count Comment Decreased (ADEQUATE) A 07/30/22 05:32 MPV 7.8 fL (7.4-11.0) 08/03/22 06:00 Neut % (Auto) 81.6 % (42.0-75.0) H 08/03/22 06:00 Lymph % (Auto) 7.5 % (21.0-51.0) L 08/03/22 06:00 [place] % (Auto) 8.1 % (0.0-13.0) 08/03/22 06:00 Eos % (Auto) 2.3 % (0.9-2.9) 08/03/22 06:00 Baso % (Auto) 0.5 % (0.2-1.0) 08/03/22 06:00 Neut # (Auto) 8.9 x10^3/uL (2.2-4.8) H 08/03/22 06:00 Lymph # (Auto) 0.8 X10^3/uL (1.3-2.9) L 08/03/22 06:00 [place] # (Auto) 0.9 x10^3/uL (0.3-0.8) H 08/03/22 06:00 Eos # (Auto) 0.3 x10^3/uL (0.0-0.2) H 08/03/22 06:00 Baso # (Auto) 0.1 X10^3/uL (0.0-0.1) 08/03/22 06:00 Absolute Nucleated RBC 0.0 /100WBC 08/03/22 06:00 Total Counted 100 07/30/22 05:32 Neutrophils % (Manual) 62 % (39-76) 07/30/22 05:32 Band Neutrophils % 3 % (0-10) 07/30/22 05:32 Lymphocytes % (Manual) 20 % (13-43) 07/30/22 05:32 Monocytes % (Manual) 8 % (4-9) 07/30/22 05:32 Eosinophils % (Manual) 3 % (0-6) 07/30/22 05:32 Metamyelocytes % 4 07/30/22 05:32 Plt Morphology Comment Normal (NORMAL) 07/30/22 05:32 RBC Morphology Normal (NORMAL) 07/30/22 05:32 PT 15.8 SECONDS (11.8-14.3) 07/24/22 05:32 INR Target Range - 07/24/22 05:32 INR 1.31 (0.8-1.3) H 07/24/22 05:32 APTT 29.2 SECONDS (22.9-36.5) 07/24/22 05:32 PTT Comment - 07/24/22 05:32 Sample Site Rrad 08/03/22 10:45 ABG pH 7.390 (7.35-7.45) 08/03/22 10:45 ABG pCO2 81.0 mmHg (35.0-45.0) H* 08/03/22 10:45 ABG pO2 65.0 mmHg (80.0-100.0) L 08/03/22 10:45 ABG HCO3 49.0 mmol/L (22-26) H* 08/03/22 10:45 ABG O2 Saturation 92.0 % (90-100) 08/03/22 10:45 ABG Base Excess 19.8 mmol/L (-2.0-2.0) H 08/03/22 10:45 Lenard Test Pos 08/03/22 10:45 A-a Gradient 190.0 mmHg 08/03/22 10:45 FiO2 50.0 08/03/22 10:45 Blood Gas Comments Camilla well ms/eb 08/03/22 10:45 Sodium 146 mmol/L (136-145) H 08/03/22 06:00 Corrected Sodium TNP 08/03/22 06:00 Potassium 3.8 mmol/L (3.5-5.1) 08/03/22 06:00 Chloride 101 mmol/L (98-107) 08/03/22 06:00 Carbon Dioxide 39.2 mmol/L (21-32) H 08/03/22 06:00 BUN 20 mg/dL (7-18) H 08/03/22 06:00 Creatinine 0.76 mg/dL (0.55-1.02) 08/03/22 06:00 Est GFR (MDRD) Af Amer > 60 (>60) 08/03/22 06:00 Est GFR (MDRD) Non-Af > 60 (>60) 08/03/22 06:00 Glucose 100 mg/dL (65-99) H 08/03/22 06:00 POC Glucose (mg/dL) 148 mg/dL (65-99) H 07/27/22 08:37 Calcium 8.6 mg/dL (8.5-10.1) 08/03/22 06:00 Corrected Calcium 9.3 mg/dL (8.5-10.1) 08/03/22 06:00 Total Bilirubin 2.30 mg/dL (0.2-1.0) H 08/03/22 06:00 AST 20 Units/L (15-37) 08/03/22 06:00 ALT 10 Units/L (12-78) L 08/03/22 06:00 Alkaline Phosphatase 215 Units/L (46-116) H 08/03/22 06:00 B-Natriuretic Peptide 894 pg/mL (0-79) H* 08/03/22 06:00 Total Protein 6.8 g/dL (6.4-8.2) 08/03/22 06:00 Albumin 3.1 g/dL (3.4-5.0) L 08/03/22 06:00 Globulin 3.7 g/dL (2.5-4.5) 08/03/22 06:00 Albumin/Globulin Ratio 0.8 Ratio (1.1-2.1) L 08/03/22 06:00 Specimen Type Catherized urine 07/31/22 11:05 Urine Color Yellow (YELLOW) 07/31/22 11:05 Urine Appearance Clear (CLEAR) 07/31/22 11:05 Urine pH 6.0 (5.0 - 8.0) 07/31/22 11:05 Ur Specific [place] 1.015 (1.000-1.030) 07/31/22 11:05 Urine Protein 1+ (NEGATIVE) 07/31/22 11:05 Urine Glucose (UA) Negative (NEGATIVE) 07/31/22 11:05 Urine Ketones Negative (NEGATIVE) 07/31/22 11:05 Urine Blood 1+ (NEGATIVE) 07/31/22 11:05 Urine Nitrite Negative (NEGATIVE) 07/31/22 11:05 Urine Bilirubin Negative (NEGATIVE) 07/31/22 11:05 Urine Urobilinogen Normal (NORMAL) 07/31/22 11:05 Ur Leukocyte Esterase Negative (NEGATIVE) 07/31/22 11:05 Urine RBC 0-2 /HPF (0-3) 07/31/22 11:05 Urine WBC 0-2 /HPF (0-5) 07/31/22 11:05 Ur Squamous Epith Cells Rare /HPF (NEGATIVE) 07/31/22 11:05 Calcium Oxalate Crystal Rare /HPF (NEGATIVE) 07/31/22 11:05 Urine Bacteria Negative /HPF (NEGATIVE) 07/31/22 11:05 Hyaline Casts Rare /LPF (NEGATIVE) 07/31/22 11:05 Urine Mucus Rare /HPF (NEGATIVE) 07/31/22 11:05 Ur Culture Indicated? No/not indicated 07/31/22 11:05 Vancomycin Trough 21.2 ug/mL (15-20) H* 08/02/22 05:26 SARS-CoV-2 (PCR) Negative (NEGATIVE) 08/02/22 13:15 SARS CoV-2 RNA Rapid SURI Cancelled 08/02/22 13:15 - Plan (1) Wound of left ankle Status: Acute Qualifiers: Encounter type: initial encounter Qualified Code(s): S91.002A - Unspecified open wound, left ankle, initial encounter (2) Ischemia of left lower extremity Status: Acute (3) Pleural effusion due to CHF (congestive heart failure) Status: Acute (4) Pulmonary edema Status: Acute Qualifiers: Chronicity: acute Qualified Code(s): J81.0 - Acute pulmonary edema
--- NOTE | 2022-08-03 11:12 | PCM.PROG ---
Progress Note - Progress Note for Day of Date of Exam: 08/03/22 - Subjective Subjective: IS CURRENTLY BEING TREATED FOR LEFT FOOT NON-HEALING WOUND, BILATERAL PLEURAL EFFUSIONS, CHF, AND SHORTNESS OF BREATH. SHE IS STATUS REVASCULARIZATION OF THE LEFT LEG AND DEBRIDEMENT OF WOUNDS TO THE LEFT LEG. TODAY, SHE IS ALERT AND ORIENTED, LYING IN BED ON MORNING ROUNDS. SHE CONTINUES WITH COMPLAINTS OF SHORTNESS OF BREATH, WEAKNESS. SHE REPORTS SLIGHT IMPROVEMENT IN SYMPTOMS TODAY. SHE DID WEAR THE BIPAP SOME YESTERDAY AND THROUGHOUT THE NIGHT. HER VITALS THIS MORNING ARE: 98.9-100-20-94%-145/66. SHE IS CURRENTLY ON 6 LITERS OF OXYGEN VIA NASAL CANNULA. LABS WERE OBTAINED. WBC 10.9, RBC 2.57, HGB 8.0, HCT 23.5, PLT COUNT 135, SODIUM 146, POTASSIUM 3.8, BUN 20, CREATININE 0.76, GLUCOSE 100, CALCIUM 8.6, TOTAL BILI 2.30, AST 20, ALT 10, ALK PHOS 215, BNP 894, TOTAL PROTEIN 6.8, ALBUMIN 3.1. 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 SPUTUM CULTURE IS POSITIVE FOR YEAST AND GRAM NEATIVE RODS. A CHEST XRAY WAS OBTAINED TODAY AND REVEALED: Bilateral subsegmental atelectasis. Blunted costophrenic sulci can be seen with small pleural effusions or pleuro- parynchemal scarring. SHE IS CURRENTLY RECEIVING LACTATED RINGERS AT 20 ML/HR, LEVAQUIN 500MG PO DAILY, RIFAMPIN 300MG PO BID, ALBUMIN 25% IV DAILY, DIFLUCAN 100MG PO DAILY, DUONEBS QID, PULMICORT NEBS BID, LASIX 40MG IV BID, DILAUDID 1MG IV Q4H PRN, ATIVAN 0.5MG PO BID, ECOTRIN 81MG PO DAILY, CATAPRES 0.1MG PO BID PRN, COLACE 100MG PO HX, LEXAPRO 10MG PO DAILY, ZETIA 10MG PO DAILY, FOLIC ACID 1MG PO DAILY, NEURONTIN 200MG PO TID, SYNTHROID 125MCG PO DAILY, MELATONIN 10MG PO HS, ROBAXIN 500MG PO TID, TOPROL XL 100MG PO DAILY, SINGULAIR 10MG PO HS, PERCOCET 5/325MG PO Q6H PRN, PROTONIX 40MG PO DAILY, XARELTO 2.5MG PO BID, AND REQUIP 0.25MG PO TID. SHE IS ENCOURAGED TO CONTINUE TO WEAR THE BIPAP THROUGHOUT THE DAY. SHE VERBALIZED UNDERSTANDING. WE WILL OBTAIN AN ABG TODAY. OR HIS ASSOCIATES WILL MONITOR FOOT WOUNDS. OTHERWISE, WE WILL FOLLOW-UP WITH AM LABS AND CONTINUE TO MONITOR. TIME SPENT ON CLINICAL ASSESSMENT, REVIWING LABS AND IMAGING, DECISION MAKING, AND DOCUMENTATION GREATER THAN 45 MINUTES. - Past Medical Family Social History Past Med/Fam/Surg Hx: No changes since H&P Allergies: Allergies No Known Drug Allergies Allergy (Verified 07/23/22 21:06) - Review of Systems ROS: No change since H&P - Vital Signs and I&O's Vital Signs: Temperature 98.9 F Pulse Rate [Left Brachial] 70 Pulse Rate [Right Brachial] 101 Pulse Rate 95 Respiratory Rate 20 Blood Pressure [Left Arm] 145/66 Blood Pressure [Right Arm] 116/64 Blood Pressure 140/63 O2 Sat by Pulse Oximetry 95 Intake and Output: Intake & Output 07/31/22 08/01/22 08/02/22 08/03/22 11:59 11:59 11:59 11:59 Intake Total 2240 / 2240 1068 / 1068 4104 / 4104 992 / 992 Output Total 2780 / 2780 5650 / 5650 2840 / 2840 Balance 2235 / 2235 -1712 / -1712 -1546 / -1546 -1848 / -1848 - Physical Exam Oriented: Normal Eyes: Normal Ear: Normal Nose: Normal Throat: Normal Respiratory: Generalized, Diminished Cardiovascular: Normal : Normal Auscultation: Bowel Sounds: Normal Tenderness: Normal Skin: Decreased Turgur, Wound (MULTIPLE LEFT FOOT WOUNDS ) Musculoskeletal: Normal Psychiatric: Normal Mood Description: Calm Affect: Normal Speech Pattern: Appropriate - Laboratory and Diagnostics Result Diagrams: 08/03/22 06:00 08/03/22 06:00 Labs: 07/31/22 09:00 Sputum - Expectorated Sputum Sputum Culture - Preliminary 07/31/22 09:00 Sputum - Expectorated Sputum - Final 07/27/22 15:30 Foot - Left Wound Gram Stain - Final 07/27/22 15:30 Foot - Left Wound Culture - Final Methicillin Resis Staph Aureus 07/27/22 15:30 Foot - Left Wound Gram Stain - Final 07/27/22 15:30 Foot - Left Wound Culture - Final Laboratory WBC 10.9 X10^3/uL (3.6-10.0) H 08/03/22 06:00 RBC 2.57 X10^6/uL (3.5-5.4) L 08/03/22 06:00 Hgb 8.0 g/dL (12.0-16.0) L 08/03/22 06:00 Hct 23.5 % (36.0-47.0) L 08/03/22 06:00 MCV 91.2 fL (80.0-100.0) 08/03/22 06:00 MCH 30.9 pg (27.0-34.0) 08/03/22 06:00 MCHC 33.9 g/dL (33.0-35.0) 08/03/22 06:00 RDW 14.0 % (11.6-16.5) 08/03/22 06:00 Plt Count 135 X10^3/uL (150.0-450.0) L 08/03/22 06:00 Plt Count Comment Decreased (ADEQUATE) A 07/30/22 05:32 MPV 7.8 fL (7.4-11.0) 08/03/22 06:00 Neut % (Auto) 81.6 % (42.0-75.0) H 08/03/22 06:00 Lymph % (Auto) 7.5 % (21.0-51.0) L 08/03/22 06:00 [place] % (Auto) 8.1 % (0.0-13.0) 08/03/22 06:00 Eos % (Auto) 2.3 % (0.9-2.9) 08/03/22 06:00 Baso % (Auto) 0.5 % (0.2-1.0) 08/03/22 06:00 Neut # (Auto) 8.9 x10^3/uL (2.2-4.8) H 08/03/22 06:00 Lymph # (Auto) 0.8 X10^3/uL (1.3-2.9) L 08/03/22 06:00 [place] # (Auto) 0.9 x10^3/uL (0.3-0.8) H 08/03/22 06:00 Eos # (Auto) 0.3 x10^3/uL (0.0-0.2) H 08/03/22 06:00 Baso # (Auto) 0.1 X10^3/uL (0.0-0.1) 08/03/22 06:00 Absolute Nucleated RBC 0.0 /100WBC 08/03/22 06:00 Total Counted 100 07/30/22 05:32 Neutrophils % (Manual) 62 % (39-76) 07/30/22 05:32 Band Neutrophils % 3 % (0-10) 07/30/22 05:32 Lymphocytes % (Manual) 20 % (13-43) 07/30/22 05:32 Monocytes % (Manual) 8 % (4-9) 07/30/22 05:32 Eosinophils % (Manual) 3 % (0-6) 07/30/22 05:32 Metamyelocytes % 4 07/30/22 05:32 Plt Morphology Comment Normal (NORMAL) 07/30/22 05:32 RBC Morphology Normal (NORMAL) 07/30/22 05:32 PT 15.8 SECONDS (11.8-14.3) 07/24/22 05:32 INR Target Range - 07/24/22 05:32 INR 1.31 (0.8-1.3) H 07/24/22 05:32 APTT 29.2 SECONDS (22.9-36.5) 07/24/22 05:32 PTT Comment - 07/24/22 05:32 Sample Site Rrad 08/03/22 10:45 ABG pH 7.390 (7.35-7.45) 08/03/22 10:45 ABG pCO2 81.0 mmHg (35.0-45.0) H* 08/03/22 10:45 ABG pO2 65.0 mmHg (80.0-100.0) L 08/03/22 10:45 ABG HCO3 49.0 mmol/L (22-26) H* 08/03/22 10:45 ABG O2 Saturation 92.0 % (90-100) 08/03/22 10:45 ABG Base Excess 19.8 mmol/L (-2.0-2.0) H 08/03/22 10:45 Lenard Test Pos 08/03/22 10:45 A-a Gradient 190.0 mmHg 08/03/22 10:45 FiO2 50.0 08/03/22 10:45 Blood Gas Comments Camilla well ms/eb 08/03/22 10:45 Sodium 146 mmol/L (136-145) H 08/03/22 06:00 Corrected Sodium TNP 08/03/22 06:00 Potassium 3.8 mmol/L (3.5-5.1) 08/03/22 06:00 Chloride 101 mmol/L (98-107) 08/03/22 06:00 Carbon Dioxide 39.2 mmol/L (21-32) H 08/03/22 06:00 BUN 20 mg/dL (7-18) H 08/03/22 06:00 Creatinine 0.76 mg/dL (0.55-1.02) 08/03/22 06:00 Est GFR (MDRD) Af Amer > 60 (>60) 08/03/22 06:00 Est GFR (MDRD) Non-Af > 60 (>60) 08/03/22 06:00 Glucose 100 mg/dL (65-99) H 08/03/22 06:00 POC Glucose (mg/dL) 148 mg/dL (65-99) H 07/27/22 08:37 Calcium 8.6 mg/dL (8.5-10.1) 08/03/22 06:00 Corrected Calcium 9.3 mg/dL (8.5-10.1) 08/03/22 06:00 Total Bilirubin 2.30 mg/dL (0.2-1.0) H 08/03/22 06:00 AST 20 Units/L (15-37) 08/03/22 06:00 ALT 10 Units/L (12-78) L 08/03/22 06:00 Alkaline Phosphatase 215 Units/L (46-116) H 08/03/22 06:00 B-Natriuretic Peptide 894 pg/mL (0-79) H* 08/03/22 06:00 Total Protein 6.8 g/dL (6.4-8.2) 08/03/22 06:00 Albumin 3.1 g/dL (3.4-5.0) L 08/03/22 06:00 Globulin 3.7 g/dL (2.5-4.5) 08/03/22 06:00 Albumin/Globulin Ratio 0.8 Ratio (1.1-2.1) L 08/03/22 06:00 Specimen Type Catherized urine 07/31/22 11:05 Urine Color Yellow (YELLOW) 07/31/22 11:05 Urine Appearance Clear (CLEAR) 07/31/22 11:05 Urine pH 6.0 (5.0 - 8.0) 07/31/22 11:05 Ur Specific [place] 1.015 (1.000-1.030) 07/31/22 11:05 Urine Protein 1+ (NEGATIVE) 07/31/22 11:05 Urine Glucose (UA) Negative (NEGATIVE) 07/31/22 11:05 Urine Ketones Negative (NEGATIVE) 07/31/22 11:05 Urine Blood 1+ (NEGATIVE) 07/31/22 11:05 Urine Nitrite Negative (NEGATIVE) 07/31/22 11:05 Urine Bilirubin Negative (NEGATIVE) 07/31/22 11:05 Urine Urobilinogen Normal (NORMAL) 07/31/22 11:05 Ur Leukocyte Esterase Negative (NEGATIVE) 07/31/22 11:05 Urine RBC 0-2 /HPF (0-3) 07/31/22 11:05 Urine WBC 0-2 /HPF (0-5) 07/31/22 11:05 Ur Squamous Epith Cells Rare /HPF (NEGATIVE) 07/31/22 11:05 Calcium Oxalate Crystal Rare /HPF (NEGATIVE) 07/31/22 11:05 Urine Bacteria Negative /HPF (NEGATIVE) 07/31/22 11:05 Hyaline Casts Rare /LPF (NEGATIVE) 07/31/22 11:05 Urine Mucus Rare /HPF (NEGATIVE) 07/31/22 11:05 Ur Culture Indicated? No/not indicated 07/31/22 11:05 Vancomycin Trough 21.2 ug/mL (15-20) H* 08/02/22 05:26 SARS-CoV-2 (PCR) Negative (NEGATIVE) 08/02/22 13:15 SARS CoV-2 RNA Rapid SURI Cancelled 08/02/22 13:15 - Plan (1) Wound of left ankle Status: Acute Qualifiers: Encounter type: initial encounter Qualified Code(s): S91.002A - Unspecified open wound, left ankle, initial encounter (2) Ischemia of left lower extremity Status: Acute (3) Pleural effusion due to CHF (congestive heart failure) Status: Acute (4) Pulmonary edema Status: Acute Qualifiers: Chronicity: acute Qualified Code(s): J81.0 - Acute pulmonary edema
[2022-08-03 17:20] LABS: ABG BASE EXCESS 22.4 mmol/L (-2.0-2.0)
[2022-08-03 17:21] LABS: ABG ALLEN TEST POS; ABG HCO3 51.1 mmol/L (22-26)
[2022-08-03] MEDS: COLACE CAP 100 MG PO SCH (21:21)
[2022-08-03] MEDS: MELATONIN PO SCH (21:21)
[2022-08-03] MEDS: ALBUMIN HUMAN 25%- 100 ML 100 ML IV SCH (21:23)
[2022-08-03] MEDS: DILAUDID INJ IVP PRN (21:24)
[2022-08-03] MEDS: SINGULAIR TAB 10 MG PO SCH (21:34)
--- NOTE | 2022-08-03 23:58 | NOTE.SOAP ---
Soap Note Note for Day of Date of Exam: 08/03/22 Subjective Data Subjective Data: Still short of breath. Left foot is warm and dressing is intact. Objective Data Temperature: 99.5 F Pulse Rate: 87 Respiratory Rate: 20 Blood Pressure: 120/71 O2 Sat by Pulse Oximetry: 9 Objective Data: As above , BNP > 800 Assessment Assessment: Ischemic left foot with non - healing wounds , s/p revascularization and debridement. Post op course complicated by congestive heart failure. Plan Plan: Continue diuretics and and BIPAP. Not ready yet for discharge to SNF. Will follow
[2022-08-04] MEDS: DILAUDID INJ IVP PRN ×3 (01:27→13:38)
[2022-08-04] MEDS: ROBAXIN PO SCH ×3 (05:49→21:39)
[2022-08-04] MEDS: NEURONTIN CAP 100 MG PO SCH ×3 (05:50→21:38)
[2022-08-04] MEDS: REQUIP PO SCH ×3 (05:50→21:38)
[2022-08-04] MEDS: SYNTHROID 125 mcg TAB PO SCH (05:50)
[2022-08-04 06:17] LABS: BASOPHILS # (AUTO) 0.1 X10^3/uL (0.0-0.1); BASOPHILS % (AUTO) 0.9 % (0.2-1.0); EOSINOPHILS # (AUTO) 0.3 x10^3/uL (0.0-0.2); EOSINOPHILS % (AUTO) 3.2 % (0.9-2.9); HEMATOCRIT 21.2 % (36.0-47.0); HEMOGLOBIN 7.2 g/dL (12.0-16.0); LYMPHOCYTES # (AUTO) 0.8 X10^3/uL (1.3-2.9); LYMPHOCYTES % (AUTO) 9.3 % (21.0-51.0); MEAN CORPUSCULAR HEMOGLOBIN 31.2 pg (27.0-34.0); MEAN CORPUSCULAR VOLUME 91.8 fL (80.0-100.0); MEAN PLATELET VOLUME 8.2 fL (7.4-11.0); MONOCYTES # (AUTO) 0.6 x10^3/uL (0.3-0.8); MONOCYTES % (AUTO) 7.4 % (0.0-13.0); NEUTROPHILS # (AUTO) 6.4 x10^3/uL (2.2-4.8); NEUTROPHILS % (AUTO) 79.2 % (42.0-75.0); RED BLOOD COUNT 2.31 X10^6/uL (3.5-5.4); RED CELL DISTRIBUTION WIDTH 13.9 % (11.6-16.5); WHITE BLOOD COUNT 8.1 X10^3/uL (3.6-10.0)
[2022-08-04 06:18] LABS: ALANINE AMINOTRANSFERASE 8 Units/L (12-78); ALKALINE PHOSPHATASE 211 Units/L (46-116); ASPARTATE AMINO TRANSFERASE 17 Units/L (15-37); BLOOD UREA NITROGEN 22 mg/dL (7-18); CALCIUM 8.3 mg/dL (8.5-10.1); CARBON DIOXIDE 43.8 mmol/L (21-32); CHLORIDE 101 mmol/L (98-107); COR CA(FOR HYPOALB) 9.1 mg/dL (8.5-10.1); COR NA(FOR HYPERGLY) 149 mmol/L (136-145); CREATININE 0.94 mg/dL (0.55-1.02); SODIUM 147 mmol/L (136-145); TOTAL PROTEIN 6.3 g/dL (6.4-8.2); eGFR NON BLACK RACES > 60 (>60)
[2022-08-04] MEDS ORDERED: K-RIDER 10 MEQ/NS 100 ML 10 MEQ/100 ML BAG IV PRN (06:42)
[2022-08-04] MEDS ORDERED: POTASSIUM CHL 60 MEQ/NS 0.45% 500 ML IV PRN (06:42)
[2022-08-04] MEDS ORDERED: KLOR-CON PO PRN (06:42)
[2022-08-04] MEDS ORDERED: POTASSIUM CHL 40 MEQ/NS 0.45% 500 ML IV PRN (06:42)
[2022-08-04] MEDS ORDERED: MICRO K EXTEN CAP 10 MEQ PO PRN (06:42)
[2022-08-04] MEDS ORDERED: MAGNESIUM SULFATE 1 GRAM/100 mL PREMIX 1 G/100 ML BAG IV PRN (06:42)
--- NOTE | 2022-08-04 08:06 | RAD ---
HISTORYSOB HX: TIA, HTN, COPD SX: ORTHOSTUDYCHEST, 1 VIEWCOMPARISONOctober 2021.FINDINGSThe trachea is midline. The cardiac silhouette is enlarged but stable. The lungs show unchanged bilateral somewhat linear parenchymal opacities with more dense airspace disease in the left lung base. This could reflect pneumonia and follow-up to complete resolution recommended. Background changes of COPD/bronchitis or also suggested. These findings are stable. The bony thorax is unremarkable.IMPRESSIONAs above.Electronically signed by: TE LEONE III (Aug 04, 2022 08:04:18)
[2022-08-04] MEDS: DUONEB 0.5 MG/3 MG (3 mL) NEB SCH ×4 (08:30→20:40)
[2022-08-04] MEDS: PULMICORT NEB TX 0.5 MG NEB SCH ×2 (08:30→20:40)
[2022-08-04] MEDS ORDERED: LEXAPRO ONE (09:07)
[2022-08-04] MEDS ORDERED: TOPROL XL PO ONE (09:08)
[2022-08-04] MEDS: PROTONIX TAB 40 MG PO SCH (09:14)
[2022-08-04] MEDS: NU IRON PO SCH (09:15)
[2022-08-04] MEDS: VITAMIN D3 125 mcg (5,000 UNITS) PO SCH (09:15)
[2022-08-04] MEDS: TOPROL XL PO SCH (09:15)
[2022-08-04] MEDS: XARELTO PO SCH ×2 (09:15→20:50)
[2022-08-04] MEDS: LEVAQUIN TAB 500 MG PO SCH (09:16)
[2022-08-04] MEDS: RIFADIN PO SCH ×2 (09:16→20:48)
[2022-08-04] MEDS: ASPIRIN EC 81 MG PO SCH (09:16)
[2022-08-04] MEDS: ZETIA TAB 10 MG PO SCH (09:16)
[2022-08-04] MEDS: FOLIC ACID TAB 1 MG PO SCH (09:16)
[2022-08-04] MEDS: LEXAPRO PO SCH (09:18)
[2022-08-04] MEDS: LASIX IVP SCH ×2 (09:22→16:00)
[2022-08-04] MEDS: DIFLUCAN PO SCH (09:23)
[2022-08-04] MEDS: NORCO 5/325 MG TAB PO PRN (15:55)
[2022-08-04 16:39] LABS: BASOPHILS # (AUTO) 0.1 X10^3/uL (0.0-0.1); BASOPHILS % (AUTO) 0.7 % (0.2-1.0); EOSINOPHILS # (AUTO) 0.3 x10^3/uL (0.0-0.2); EOSINOPHILS % (AUTO) 2.6 % (0.9-2.9); HEMATOCRIT 22.6 % (36.0-47.0); HEMOGLOBIN 7.5 g/dL (12.0-16.0); LYMPHOCYTES # (AUTO) 0.8 X10^3/uL (1.3-2.9); LYMPHOCYTES % (AUTO) 6.7 % (21.0-51.0); MEAN CORPUSCULAR HEMOGLOBIN 30.3 pg (27.0-34.0); MEAN CORPUSCULAR HGB CONC 33.1 g/dL (33.0-35.0); MEAN CORPUSCULAR VOLUME 91.7 fL (80.0-100.0); MEAN PLATELET VOLUME 7.5 fL (7.4-11.0); MONOCYTES % (AUTO) 7.8 % (0.0-13.0); NEUTROPHILS # (AUTO) 10.1 x10^3/uL (2.2-4.8); NEUTROPHILS % (AUTO) 82.2 % (42.0-75.0); RED BLOOD COUNT 2.46 X10^6/uL (3.5-5.4); WHITE BLOOD COUNT 12.3 X10^3/uL (3.6-10.0)
[2022-08-04] MEDS ORDERED: TYLENOL SUPP 650 MG ONE (17:53)
[2022-08-04] MEDS ORDERED: TYLENOL SUPP 650 MG PR ONE (17:58)
[2022-08-04] MEDS: VANCOMYCIN IV *PREMIX 750 mg/150 ML BAG 750 MG/150 ML PIGGYBACK IV SCH (18:23)
[2022-08-04] MEDS: PHARMACY CONSULT - VANCOMYCIN XX SCH (18:25)
[2022-08-04] MEDS: MELATONIN PO SCH (20:48)
[2022-08-04] MEDS: SINGULAIR TAB 10 MG PO SCH (20:50)
[2022-08-04] MEDS: COLACE CAP 100 MG PO SCH (20:51)
[2022-08-04] MEDS: ALBUMIN HUMAN 25%- 100 ML 100 ML IV SCH (20:57)
[2022-08-04 21:53] LABS: APPEARANCE,URINE CLEAR (CLEAR); BACTERIA,URINE NEGATIVE /HPF (NEGATIVE); COLOR,URINE ORANGE (YELLOW); HYALINE CASTS, URINE RARE /LPF (NEGATIVE); SQUAMOUS EPITHELIAL CELL,UR RARE /HPF (NEGATIVE)
[2022-08-05] MEDS: REQUIP PO SCH ×3 (05:17→21:02)
[2022-08-05] MEDS: NEURONTIN CAP 100 MG PO SCH ×3 (05:17→21:02)
[2022-08-05 05:40] LABS: BASOPHILS # (AUTO) 0.1 X10^3/uL (0.0-0.1); BASOPHILS % (AUTO) 0.7 % (0.2-1.0); EOSINOPHILS # (AUTO) 0.2 x10^3/uL (0.0-0.2); EOSINOPHILS % (AUTO) 2.8 % (0.9-2.9); HEMATOCRIT 21.9 % (36.0-47.0); HEMOGLOBIN 7.4 g/dL (12.0-16.0); LYMPHOCYTES # (AUTO) 0.7 X10^3/uL (1.3-2.9); LYMPHOCYTES % (AUTO) 9.8 % (21.0-51.0); MEAN CORPUSCULAR HEMOGLOBIN 30.7 pg (27.0-34.0); MEAN CORPUSCULAR HGB CONC 33.7 g/dL (33.0-35.0); MONOCYTES # (AUTO) 0.7 x10^3/uL (0.3-0.8); MONOCYTES % (AUTO) 8.7 % (0.0-13.0); RED BLOOD COUNT 2.41 X10^6/uL (3.5-5.4); RED CELL DISTRIBUTION WIDTH 14.3 % (11.6-16.5); WHITE BLOOD COUNT 7.6 X10^3/uL (3.6-10.0)
[2022-08-05] MEDS: SYNTHROID 125 mcg TAB PO SCH (05:44)
[2022-08-05] MEDS: ROBAXIN PO SCH ×3 (05:44→21:02)
[2022-08-05 05:53] LABS: ALANINE AMINOTRANSFERASE 8 Units/L (12-78); ALBUMIN 3.2 g/dL (3.4-5.0); ALKALINE PHOSPHATASE 195 Units/L (46-116); ASPARTATE AMINO TRANSFERASE 22 Units/L (15-37); BLOOD UREA NITROGEN 28 mg/dL (7-18); CALCIUM 8.6 mg/dL (8.5-10.1); CARBON DIOXIDE 40.3 mmol/L (21-32); CHLORIDE 99 mmol/L (98-107); COR CA(FOR HYPOALB) 9.2 mg/dL (8.5-10.1); CREATININE 1.15 mg/dL (0.55-1.02); SODIUM 142 mmol/L (136-145); TOTAL PROTEIN 6.6 g/dL (6.4-8.2); eGFR NON BLACK RACES 50 (>60)
[2022-08-05] MEDS ORDERED: LEXAPRO ONE (08:03)
[2022-08-05] MEDS ORDERED: TOPROL XL PO ONE ×2 (08:04→11:52)
[2022-08-05] MEDS: VANCOMYCIN IV *PREMIX 750 mg/150 ML BAG 750 MG/150 ML PIGGYBACK IV SCH ×2 (08:40→21:01)
[2022-08-05] MEDS: ZETIA TAB 10 MG PO SCH (08:40)
[2022-08-05] MEDS: RIFADIN PO SCH ×2 (08:41→20:32)
[2022-08-05] MEDS: TOPROL XL PO SCH ×2 (08:41→11:58)
[2022-08-05] MEDS: LEXAPRO PO SCH (08:41)
[2022-08-05] MEDS: VITAMIN D3 125 mcg (5,000 UNITS) PO SCH (08:41)
[2022-08-05] MEDS: XARELTO PO SCH ×2 (08:41→20:34)
[2022-08-05] MEDS: DIFLUCAN PO SCH (08:42)
[2022-08-05] MEDS: NU IRON PO SCH (08:42)
[2022-08-05] MEDS: PROTONIX TAB 40 MG PO SCH (08:42)
[2022-08-05] MEDS: FOLIC ACID TAB 1 MG PO SCH (08:42)
[2022-08-05] MEDS: ASPIRIN EC 81 MG PO SCH (08:42)
[2022-08-05] MEDS: LEVAQUIN TAB 500 MG PO SCH (08:42)
[2022-08-05] MEDS: LASIX IVP SCH ×2 (08:52→17:10)
[2022-08-05] MEDS: DUONEB 0.5 MG/3 MG (3 mL) NEB SCH ×4 (09:33→20:19)
[2022-08-05] MEDS: PULMICORT NEB TX 0.5 MG NEB SCH ×2 (09:33→20:19)
[2022-08-05] MEDS ORDERED: INVOKANA PO SCH (10:00)
[2022-08-05] MEDS ORDERED: ZYVOX 600MG IV 600 MG/300 ML BAG IV SCH (10:10)
[2022-08-05 10:29] LABS: IRON 18 ug/dL (50-175)
[2022-08-05] MEDS: ENTRESTO 24/26 MG TAB PO SCH ×2 (11:57→20:31)
[2022-08-05] MEDS: TYLENOL 325 MG TAB PO PRN (11:57)
--- NOTE | 2022-08-05 12:12 | NOTE.SOAP ---
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 She is laying supine in bed with 2 pillows under her left foot and 1 pillow under her right foot. Nursing team relates she has been wearing her bipap throughout the day. It is off at time of visit, but she states she only took it off to drink some tea. She also states she has been receiving breathing treatments twice a day. Patient states she has not been feeling well for the past few days. She admits to fevers, chills, occasional shortness of breath and pain in her bilateral feet. Her shortness of breath is resolved with her breathing assistance device. In regards to her lower extremities, she states approximately a week ago during a transfer her right leg buckled and she twisted her right foot. She states it did not hurt much at the time, but it has now become increasingly painful. She denies any treatments to date for this new problem. Denies n,v, and cp at time of interview. Objective Data Objective Data: Posterior splint in place, appears clean dry and intact. Her foot has shifted slightly externally rotated in the posterior splint - top layer dressings appear loose. Vasc: Popliteal pulses palpable. DP/PT pulses faintly palpable. CFT to digits is maintained at preoperative level, ~ 3 seconds. Derm: Wound on dorsum of the left foot measures approximately 4x4cm. Wound on posterior achilles tendon insertion is approxiately 4x5cm. Wound on lateral 5th MPJ is approximately 1.5x2cm. There has been no notable change in wound measurements. All areas are covered in grafts and appear to be incorporated at this time. Guera intact. No signs of infection, malodor, or purulence today. There is a new lateral heel echymosis, as well as, a dorsal first interspace echymosis on the right foot. Additionally, she does have multiple small contusions about her left knee. Neuro: Protective and light touch sensation intact bilaterally. No focal deficits noted. MSK: LEFT: Pain on palpation of her posterior ankle, dorsal foot, and distolateral foot wounds. Able to wiggle digits and move knee through ROM without pain. RIGHT: Echymosis noted to the dorsal right forefoot around the base of the digits. No pain on ROM of her digits during active/passive ROM. Pain on palpation of the dorsal metatarsal heads 1-5, no point tenderness, more global forefoot pain. Able to move ankle through ROM without pain. Lachmann test negative to lesser digits. No obvious deformities or dislocations. Assessment Assessment: -S/p R lower extremity wound debridement (x3), graft application, and wound vac application with posterior splint (DOS 07-27-22) -S/p Aortogram, atherectomy and angioplasty left peroneal artery, Drug coated balloon angioplasty left SFA with Dr. Lim (DOS 07-26-22) -Left lower extremity wounds, non-healing -Right foot contusion -Peripheral Arterial Disease -CHF with pleural effusions - albumin and lasix given -Lower extremity edema - resolving -Fevers, past 24-48 hours - No leukocytosis -Anemia - currently getting transfusion Plan Plan: -Patient evaluated and chart reviewed. -I do not see any signs that her current constitutional symptoms and fevers are related to her foot and ankle wounds. Wounds do not appear acutely infected. Likely another source and cause. Additionally, vancomycin should be covering for MRSA which was detected in her left foot cx. Sputum cx showing: STENOTROPHOMONAS MALTOPHILIA. Urine / blood cx. -Patient receiving 1 unit pRBCs for on going anemia since admission. -X-rays of right foot and ankle ordered. New problem after her right leg buckled underneath her during a transfer. She does have swelling and bruising of this area which is new. -Pending XRs, will likely dispense post-op shoe for her right foot. -NWB to L LE -Changed dressing today. Reapplied with adaptic, 4x4 gauze, webroll, ABDs, kerlex, and CHANG with new posterior splint. Changes per podiatry. Can tighten or loosen dressings prn for patient's tolerances. In a perfect world, I would like her dressings to be a little tighter to hold her foot and ankle on the splint. Unfortunately, she is claustrophobic and scared, as a previous cast may have caused some of her wounds. -Instructions/orders for turning of her left lower extremity [id number] to prevent pressure sores. -Abx per IM/Vascular Surgery. Currently Levofloxacin, Rifampin, Linezolid and Vanco. -Pain medication: Gabapentin 200mg TID, Robaxin 500 TID. Ativan .5mg BID, Percocet 5mg Q6H, [place] 5mg Q6H and Dilaudid 1ug Q4H prn. -Okay for DC from foot and ankle POV. -Will likely need SNF for further care of her multiple problems. Facility appears to be ready for admission at this time - [facility] in [place], [place]. -Will follow
--- NOTE | 2022-08-05 12:34 | RAD ---
HISTORYRelevant Clinical Information SOBSTUDYCHEST, 1 VIEWCOMPARISONOctober delete 2021FINDINGSThe trachea is midline. The cardiac silhouette is unremarkable. The lungs are unchanged with persistent interstitial infiltrates throughout both lung shi. The bony thorax is unremarkable.IMPRESSIONStable chestElectronically signed by: STEPHANIE BUCKNER (Aug 05, 2022 12:32:44)
[2022-08-05] MEDS ORDERED: POST OP SHOE TOP SCH (15:00)
[2022-08-05] MEDS: PHARMACY CONSULT - VANCOMYCIN XX SCH (17:22)
[2022-08-05] MEDS: MELATONIN PO SCH (20:32)
[2022-08-05] MEDS: SINGULAIR TAB 10 MG PO SCH (20:32)
[2022-08-05] MEDS: COLACE CAP 100 MG PO SCH (20:37)
[2022-08-05] MEDS: ALBUMIN HUMAN 25%- 100 ML 100 ML IV SCH (20:37)
[2022-08-05] MEDS: ZYVOX 600MG IV 600 MG/300 ML BAG IV SCH (21:02)
[2022-08-05 21:57] LABS: HEMATOCRIT 27.4 % (36.0-47.0)
[2022-08-05 22:00] LABS: HEMOGLOBIN 9.5 g/dL (12.0-16.0)
[2022-08-05] MEDS: ATIVAN TAB 0.5 MG PO PRN (22:34)
--- NOTE | 2022-08-05 22:49 | RAD ---
EXAM: RIGHT ANKLE X-RAY SERIESHISTORY: Ankle pain and swelling status post twisting injury.TECHNIQUE: 3 viewsCOMPARISON: None available.FINDINGS:There is diffuse osteopenia. There is no acute bony fracture, or joint subluxation or dislocation seen. No evidence for inflammatory or degenerative arthritis is seen. No focal bone erosion or sclerosis is seen. There is an approximately 4.7 mm plantar calcaneal bone spur.There is peripheral atherosclerosis; nonspecific finding; rule out diabetic vasculopathy. No soft tissue emphysema, radiodense soft tissue mass or foreign body is seen.IMPRESSION:1. No acute bony fracture, or joint subluxation or dislocation seen.2. Diffuse osteopenia.3. Peripheral atherosclerosis; nonspecific finding; rule out diabetic vasculopathy.4. No soft tissue emphysema, radiodense soft tissue mass or foreign body seen.Electronically signed by: Sandee Díaz (Aug 05, 2022 22:48:36)
--- NOTE | 2022-08-05 22:49 | RAD ---
EXAM: RIGHT FOOT X-RAY SERIESHISTORY: Foot pain. Swelling. Twisting fall injury.TECHNIQUE: 3 viewsCOMPARISON: None available.FINDINGS:There is diffuse osteopenia. There is no acute bony fracture, or joint subluxation or dislocation seen. 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 No evidence for inflammatory or degenerative arthritis is seen. No focal bone erosion or sclerosis is seen. There is an approximately 3.8 mm plantar calcaneal bone spur.There is peripheral atherosclerosis; nonspecific finding; rule out diabetic vasculopathy. No soft tissue emphysema, radiodense soft tissue mass or foreign body is seen.IMPRESSION:1. No acute bony fracture, or joint subluxation or dislocation seen.2. Diffuse osteopenia.3. Peripheral atherosclerosis; nonspecific finding; rule out diabetic vasculopathy.4. No soft tissue emphysema, radiodense soft tissue mass or foreign body seen.Electronically signed by: Sandee Díaz (Aug 05, 2022 22:47:44)
[2022-08-06] MEDS: REQUIP PO SCH ×3 (05:12→21:59)
[2022-08-06] MEDS: NEURONTIN CAP 100 MG PO SCH ×3 (05:12→21:59)
[2022-08-06 05:34] LABS: BASOPHILS % (AUTO) 0.5 % (0.2-1.0); EOSINOPHILS # (AUTO) 0.2 x10^3/uL (0.0-0.2); EOSINOPHILS % (AUTO) 2.7 % (0.9-2.9); HEMATOCRIT 27.5 % (36.0-47.0); HEMOGLOBIN 9.7 g/dL (12.0-16.0); LYMPHOCYTES # (AUTO) 0.5 X10^3/uL (1.3-2.9); LYMPHOCYTES % (AUTO) 6.2 % (21.0-51.0); MEAN CORPUSCULAR HEMOGLOBIN 30.6 pg (27.0-34.0); MEAN CORPUSCULAR HGB CONC 35.2 g/dL (33.0-35.0); MEAN CORPUSCULAR VOLUME 86.8 fL (80.0-100.0); MEAN PLATELET VOLUME 7.8 fL (7.4-11.0); MONOCYTES # (AUTO) 0.6 x10^3/uL (0.3-0.8); MONOCYTES % (AUTO) 7.2 % (0.0-13.0); NEUTROPHILS # (AUTO) 6.5 x10^3/uL (2.2-4.8); NEUTROPHILS % (AUTO) 83.4 % (42.0-75.0); RED BLOOD COUNT 3.17 X10^6/uL (3.5-5.4); RED CELL DISTRIBUTION WIDTH 15.1 % (11.6-16.5); WHITE BLOOD COUNT 7.8 X10^3/uL (3.6-10.0)
[2022-08-06] MEDS: SYNTHROID 125 mcg TAB PO SCH (05:37)
[2022-08-06] MEDS: ROBAXIN PO SCH ×3 (05:37→21:59)
[2022-08-06 05:43] LABS: ALANINE AMINOTRANSFERASE 9 Units/L (12-78); ALBUMIN 3.1 g/dL (3.4-5.0); ALKALINE PHOSPHATASE 166 Units/L (46-116); ASPARTATE AMINO TRANSFERASE 23 Units/L (15-37); BLOOD UREA NITROGEN 19 mg/dL (7-18); CALCIUM 8.6 mg/dL (8.5-10.1); CHLORIDE 100 mmol/L (98-107); COR CA(FOR HYPOALB) 9.3 mg/dL (8.5-10.1); COR NA(FOR HYPERGLY) 143 mmol/L (136-145); CREATININE 0.83 mg/dL (0.55-1.02); SODIUM 143 mmol/L (136-145); TOTAL PROTEIN 6.4 g/dL (6.4-8.2); eGFR NON BLACK RACES > 60 (>60)
[2022-08-06 05:49] LABS: ABG BASE EXCESS 20.8 mmol/L (-2.0-2.0)
[2022-08-06 05:52] LABS: ABG ALLEN TEST POS; ABG HCO3 48.4 mmol/L (22-26)
[2022-08-06 06:09] LABS: VANCOMYCIN,TROUGH 13.9 ug/mL (15-20)
[2022-08-06] MEDS ORDERED: TOPROL XL PO ONE (08:04)
[2022-08-06] MEDS ORDERED: LEXAPRO ONE (08:04)
--- NOTE | 2022-08-06 08:15 | RAD ---
HISTORYShortness of breathSTUDYChest AP [id number]/23/2022FINDINGSHear t size is normal. Nereida are normal. Lungs appear free of acute alveolar infiltrates and areas of consolidation. There are some interstitial lung changes present and stable. There is a focus of subsegmental atelectasis in the left perihilar region. Bony thorax is unremarkable.IMPRESSIONNo significant change from the prior examinationElectronically signed by: DAGO BOWERS (Aug 06, 2022 08:13:55)
[2022-08-06] MEDS: ZYVOX 600MG IV 600 MG/300 ML BAG IV SCH (08:19)
[2022-08-06] MEDS: ENTRESTO 24/26 MG TAB PO SCH ×2 (08:20→20:30)
[2022-08-06] MEDS: ZETIA TAB 10 MG PO SCH (08:20)
[2022-08-06] MEDS: XARELTO PO SCH ×2 (08:21→20:30)
[2022-08-06] MEDS: TOPROL XL PO SCH (08:21)
[2022-08-06] MEDS: VITAMIN D3 125 mcg (5,000 UNITS) PO SCH (08:21)
[2022-08-06] MEDS: FOLIC ACID TAB 1 MG PO SCH (08:21)
[2022-08-06] MEDS: PROTONIX TAB 40 MG PO SCH (08:21)
[2022-08-06] MEDS: ASPIRIN EC 81 MG PO SCH (08:21)
[2022-08-06] MEDS: NU IRON PO SCH (08:21)
[2022-08-06] MEDS: LEVAQUIN TAB 500 MG PO SCH (08:22)
[2022-08-06] MEDS: DIFLUCAN PO SCH (08:22)
[2022-08-06] MEDS: LEXAPRO PO SCH (08:22)
[2022-08-06] MEDS: RIFADIN PO SCH (08:22)
[2022-08-06] MEDS: LASIX IVP SCH ×2 (08:23→17:14)
[2022-08-06] MEDS: PULMICORT NEB TX 0.5 MG NEB SCH ×2 (08:57→21:19)
[2022-08-06] MEDS: DUONEB 0.5 MG/3 MG (3 mL) NEB SCH ×4 (08:58→21:19)
[2022-08-06] MEDS ORDERED: MAGIC MOUTHWASH (Orig. Formula) MT PRN (09:29)
[2022-08-06] MEDS ORDERED: NYSTATIN SUSP MT PRN (09:40)
[2022-08-06] MEDS: BUTT CREAM (COMPOUND) TOP PRN ×2 (10:18→22:15)
[2022-08-06] MEDS: VANCOMYCIN IV *PREMIX 750 mg/150 ML BAG 750 MG/150 ML PIGGYBACK IV SCH ×2 (10:18→21:58)
[2022-08-06] MEDS: ALBUMIN HUMAN 25%- 100 ML 100 ML IV SCH (20:29)
[2022-08-06] MEDS: MELATONIN PO SCH (20:30)
[2022-08-06] MEDS: COLACE CAP 100 MG PO SCH (20:30)
[2022-08-06] MEDS: SINGULAIR TAB 10 MG PO SCH (20:30)
[2022-08-06] MEDS ORDERED: LOMOTIL PO PRN (21:21)
[2022-08-06] MEDS: IMODIUM CAP 2 MG PO PRN (22:14)
[2022-08-06] MEDS: PHARMACY CONSULT - VANCOMYCIN XX SCH (22:16)
--- NOTE | 2022-08-06 23:54 | NOTE.SOAP ---
Soap Note Note for Day of Date of Exam: 08/06/22 Subjective Data Subjective Data: Patient still SOB and requiring BiPAP. Now with continued elevation of BNP. Total bilirubin has been rising presumably due to medications Objective Data Temperature: 99.8 F Pulse Rate: 81 Respiratory Rate: 20 Blood Pressure: 157/68 O2 Sat by Pulse Oximetry: 93 Objective Data: Left foot is warm. Dressing changed yesterday by podiatry and noted in their note. HgB =9.7 CO2 =42, WBC=7.8, ABG shows retention of CO2 which is compensated. CXR does not show infiltrate. Assessment Assessment: Ischemic left leg s/p revascularization . Left foot debrided CHF still not compensated . Elevated bilrubin. Plan Plan: Continue IV antibiotics, continue BIPAP and diuretics. GI consult planned.
[2022-08-07] MEDS: ROBAXIN PO SCH ×3 (05:13→21:26)
[2022-08-07] MEDS: REQUIP PO SCH ×3 (05:13→21:25)
[2022-08-07] MEDS: NEURONTIN CAP 100 MG PO SCH ×3 (05:13→21:16)
[2022-08-07 05:39] LABS: ABG BASE EXCESS 18.5 mmol/L (-2.0-2.0)
[2022-08-07] MEDS: SYNTHROID 125 mcg TAB PO SCH (05:39)
[2022-08-07 05:40] LABS: ABG ALLEN TEST POS; ABG HCO3 45.9 mmol/L (22-26)
[2022-08-07 06:42] LABS: BLOOD UREA NITROGEN 20 mg/dL (7-18); CALCIUM 8.7 mg/dL (8.5-10.1); CARBON DIOXIDE 37.8 mmol/L (21-32); CHLORIDE 100 mmol/L (98-107); CREATININE 0.91 mg/dL (0.55-1.02); SODIUM 144 mmol/L (136-145); eGFR NON BLACK RACES > 60 (>60)
[2022-08-07 06:43] LABS: BASOPHILS # (AUTO) 0.1 X10^3/uL (0.0-0.1); BASOPHILS % (AUTO) 0.8 % (0.2-1.0); EOSINOPHILS # (AUTO) 0.2 x10^3/uL (0.0-0.2); EOSINOPHILS % (AUTO) 2.7 % (0.9-2.9); HEMATOCRIT 27.1 % (36.0-47.0); HEMOGLOBIN 9.3 g/dL (12.0-16.0); LYMPHOCYTES # (AUTO) 0.6 X10^3/uL (1.3-2.9); LYMPHOCYTES % (AUTO) 9.8 % (21.0-51.0); MEAN CORPUSCULAR HEMOGLOBIN 30.3 pg (27.0-34.0); MEAN CORPUSCULAR HGB CONC 34.1 g/dL (33.0-35.0); MEAN CORPUSCULAR VOLUME 88.9 fL (80.0-100.0); MEAN PLATELET VOLUME 8.2 fL (7.4-11.0); MONOCYTES # (AUTO) 0.5 x10^3/uL (0.3-0.8); MONOCYTES % (AUTO) 7.6 % (0.0-13.0); NEUTROPHILS # (AUTO) 4.8 x10^3/uL (2.2-4.8); NEUTROPHILS % (AUTO) 79.1 % (42.0-75.0); RED BLOOD COUNT 3.05 X10^6/uL (3.5-5.4); RED CELL DISTRIBUTION WIDTH 14.8 % (11.6-16.5); WHITE BLOOD COUNT 6.1 X10^3/uL (3.6-10.0)
--- NOTE | 2022-08-07 07:30 | RAD ---
HISTORYSOBSTUDYCHEST, 1 [id number]/24/2022.TECHNIQUEAP view of the chestFINDINGSThe cardiac silhouette is stably enlarged. Mediastinal contours appear stable. Mild worsening of bibasilar pleural parenchymal opacities. No pneumothorax. Soft tissue attenuation limits evaluation.IMPRESSIONMild worsening of bibasilar pleural parenchymal opacities. This may be any combination of pleural effusion, atelectasis, or pneumonia..Electronically signed by: Dirk Rivas (Aug 07, 2022 07:28:50)
[2022-08-07] MEDS ORDERED: TOPROL XL PO ONE (08:07)
[2022-08-07] MEDS ORDERED: LEXAPRO ONE (08:07)
[2022-08-07] MEDS: DUONEB 0.5 MG/3 MG (3 mL) NEB SCH ×4 (08:21→21:05)
[2022-08-07] MEDS: PULMICORT NEB TX 0.5 MG NEB SCH ×2 (08:21→21:05)
[2022-08-07] MEDS: IMODIUM CAP 2 MG PO PRN ×2 (08:44→21:17)
[2022-08-07] MEDS: FOLIC ACID TAB 1 MG PO SCH (08:45)
[2022-08-07] MEDS: LEXAPRO PO SCH (08:45)
[2022-08-07] MEDS: ENTRESTO 24/26 MG TAB PO SCH ×2 (08:45→21:16)
[2022-08-07] MEDS: NU IRON PO SCH (08:45)
[2022-08-07] MEDS: VANCOMYCIN IV *PREMIX 750 mg/150 ML BAG 750 MG/150 ML PIGGYBACK IV SCH ×2 (08:45→21:48)
[2022-08-07] MEDS: PROTONIX TAB 40 MG PO SCH (08:46)
[2022-08-07] MEDS: ZETIA TAB 10 MG PO SCH (08:46)
[2022-08-07] MEDS: VITAMIN D3 125 mcg (5,000 UNITS) PO SCH (08:46)
[2022-08-07] MEDS: ASPIRIN EC 81 MG PO SCH (08:46)
[2022-08-07] MEDS: TOPROL XL PO SCH (08:46)
[2022-08-07] MEDS: XARELTO PO SCH ×2 (08:46→21:17)
[2022-08-07] MEDS: LASIX IVP SCH ×2 (08:47→16:33)
[2022-08-07] MEDS: LEVAQUIN TAB 500 MG PO SCH (12:00)
[2022-08-07 12:07] LABS: ALANINE AMINOTRANSFERASE 7 Units/L (12-78); ALBUMIN 2.9 g/dL (3.4-5.0); ALKALINE PHOSPHATASE 147 Units/L (46-116); ASPARTATE AMINO TRANSFERASE 31 Units/L (15-37); COR CA(FOR HYPOALB) 9.6 mg/dL (8.5-10.1); TOTAL PROTEIN 6.1 g/dL (6.4-8.2)
[2022-08-07 20:44] LABS: CREATININE 1.06 mg/dL (0.55-1.02); VANCOMYCIN,TROUGH 18.3 ug/mL (15-20)
[2022-08-07] MEDS: ALBUMIN HUMAN 25%- 100 ML 100 ML IV SCH (21:15)
[2022-08-07] MEDS: MELATONIN PO SCH (21:17)
[2022-08-07] MEDS: SINGULAIR TAB 10 MG PO SCH (21:17)
[2022-08-07] MEDS: COLACE CAP 100 MG PO SCH (21:18)
--- NOTE | 2022-08-07 21:30 | NOTE.SOAP ---
Soap Note Note for Day of Date of Exam: 08/07/22 Subjective Data Subjective Data: Overall patient is improved. Less SOB and off BiPAP and now on high flow oxygen. Left leg dressing intact. Toes left foot are warm. Began with diarrhea and it continues. C. difficile titer is negative. Poor appeite Objective Data Temperature: 98.3 F Pulse Rate: 86 Respiratory Rate: 30 Blood Pressure: 158/60 O2 Sat by Pulse Oximetry: 92 Objective Data: Patient very weak. In bed. Still with diarrhea. Lungs with mild rhonchi, Left foot warm. Wounds left foot growing MRSA. Sputum growing Jessy and Stenotrophomas. WBC= 6.1, Hgb= 9.3, Rmp=852, ABG on 50 % FIO2- 7.45/ pCO2=66, pO2=70, HCO3= 45.9, Cr=1.06, T. bili= 3.5 Assessment Assessment: 1) LE revascularization is working . Left foot warm. Dressings intact 2) CHF - Improving on Entresto and diuretics 3) Pneumonia . On Levaquin 4) MRSA of wound . On Vancomycin 5) Bilirubin declining Observe 6) Jessy in sputum Begin Diflucan Plan Plan: As above. When improved will need SNF stay.
[2022-08-07] MEDS: BUTT CREAM (COMPOUND) TOP PRN (21:47)
[2022-08-08 05:07] LABS: BASOPHILS % (AUTO) 0.9 % (0.2-1.0); EOSINOPHILS # (AUTO) 0.2 x10^3/uL (0.0-0.2); EOSINOPHILS % (AUTO) 3.9 % (0.9-2.9); HEMATOCRIT 27.1 % (36.0-47.0); LYMPHOCYTES # (AUTO) 0.7 X10^3/uL (1.3-2.9); LYMPHOCYTES % (AUTO) 12.1 % (21.0-51.0); MEAN CORPUSCULAR HEMOGLOBIN 29.4 pg (27.0-34.0); MEAN CORPUSCULAR HGB CONC 33.2 g/dL (33.0-35.0); MEAN CORPUSCULAR VOLUME 88.6 fL (80.0-100.0); MEAN PLATELET VOLUME 8.1 fL (7.4-11.0); MONOCYTES # (AUTO) 0.5 x10^3/uL (0.3-0.8); MONOCYTES % (AUTO) 9.7 % (0.0-13.0); NEUTROPHILS % (AUTO) 73.4 % (42.0-75.0); RED BLOOD COUNT 3.06 X10^6/uL (3.5-5.4); RED CELL DISTRIBUTION WIDTH 14.8 % (11.6-16.5); WHITE BLOOD COUNT 5.5 X10^3/uL (3.6-10.0)
[2022-08-08 05:20] LABS: ALANINE AMINOTRANSFERASE 8 Units/L (12-78); ALBUMIN 2.8 g/dL (3.4-5.0); ALKALINE PHOSPHATASE 132 Units/L (46-116); ASPARTATE AMINO TRANSFERASE 20 Units/L (15-37); BLOOD UREA NITROGEN 27 mg/dL (7-18); CALCIUM 8.5 mg/dL (8.5-10.1); CARBON DIOXIDE 39.1 mmol/L (21-32); CHLORIDE 100 mmol/L (98-107); COR CA(FOR HYPOALB) 9.5 mg/dL (8.5-10.1); CREATININE 0.96 mg/dL (0.55-1.02); SODIUM 142 mmol/L (136-145); eGFR NON BLACK RACES > 60 (>60)
[2022-08-08] MEDS: REQUIP PO SCH ×3 (05:41→21:12)
[2022-08-08] MEDS: NEURONTIN CAP 100 MG PO SCH ×3 (05:41→21:12)
[2022-08-08] MEDS: ROBAXIN PO SCH ×3 (05:42→21:18)
[2022-08-08] MEDS: SYNTHROID 125 mcg TAB PO SCH (05:42)
--- NOTE | 2022-08-08 07:06 | RAD ---
HISTORYShortness of breathSTUDYChest AP [id number]/25/2022FINDINGSHear t size is normal. Nereida are normal. Right lung is now clear. Perihilar subsegmental atelectasis is present on the left unchanged. Increased density in the retrocardiac area of the left lower lobe could indicate atelectasis or infiltrate. Left pleural effusion not excluded. Bony thorax is unremarkable.IMPRESSIONRight lung now clearLeft perihilar subsegmental atelectasis unchangedIncreasing density in the retrocardiac area of the left lower lobe which could indicate developing atelectasis, infiltrate or pleural effusion.Electronically signed by: DAGO BOWERS (Aug 08, 2022 07:04:56)
[2022-08-08] MEDS: PULMICORT NEB TX 0.5 MG NEB SCH ×2 (08:18→21:00)
[2022-08-08] MEDS: DUONEB 0.5 MG/3 MG (3 mL) NEB SCH ×4 (08:18→21:00)
[2022-08-08] MEDS ORDERED: LEXAPRO ONE (08:39)
[2022-08-08] MEDS ORDERED: TOPROL XL PO ONE (08:40)
[2022-08-08] MEDS: ZETIA TAB 10 MG PO SCH (08:46)
[2022-08-08] MEDS: TOPROL XL PO SCH (08:46)
[2022-08-08] MEDS: LEXAPRO PO SCH (08:47)
[2022-08-08] MEDS: K-DUR TAB 20 MEQ PO PRN ×2 (08:47→14:39)
[2022-08-08] MEDS: PROTONIX TAB 40 MG PO SCH (08:47)
[2022-08-08] MEDS: FOLIC ACID TAB 1 MG PO SCH (08:47)
[2022-08-08] MEDS: LEVAQUIN TAB 500 MG PO SCH (08:47)
[2022-08-08] MEDS: ENTRESTO 24/26 MG TAB PO SCH ×2 (08:48→21:12)
[2022-08-08] MEDS: ASPIRIN EC 81 MG PO SCH (08:48)
[2022-08-08] MEDS: VITAMIN D3 125 mcg (5,000 UNITS) PO SCH (08:48)
[2022-08-08] MEDS: NU IRON PO SCH (08:48)
[2022-08-08] MEDS: XARELTO PO SCH ×2 (08:48→21:12)
[2022-08-08] MEDS: LASIX IVP SCH ×2 (08:49→17:34)
[2022-08-08] MEDS: VANCOMYCIN IV *PREMIX 750 mg/150 ML BAG 750 MG/150 ML PIGGYBACK IV SCH ×2 (08:50→22:04)
--- NOTE | 2022-08-08 10:38 | PCM.PROG ---
Progress Note - Progress Note for Day of Date of Exam: 08/06/22 - Subjective Subjective: IS CURRENTLY BEING TREATED FOR LEFT FOOT NON-HEALING WOUND, BILATERAL PLEURAL EFFUSIONS, CHF, ANEMIA, AND SHORTNESS OF BREATH. SHE IS STATUS REVASCULARIZATION OF THE LEFT LEG AND DEBRIDEMENT OF WOUNDS TO THE LEFT LEG. SHE RECEIVED TWO UNITS OF PACKED RED BLOOD CELLS YESTERDAY. SHE WAS FEBRILE OVER THE WEEKEND. TODAY, SHE IS ALERT AND ORIENTED, LYING IN BED ON MORNING ROUNDS. SHE CONTINUES WITH COMPLAINTS OF SHORTNESS OF BREATH AND WEAKNESS. SHE REPORTS THAT SHORTNESS OF BREATH SEEM WORSE THIS MORNING. SHE DID WEAR THE BIPAP SOME YESTERDAY AND THROUGHOUT THE NIGHT. HER VITALS THIS MORNING ARE: 98.6-96-24-87%-183/76. SHE IS CURRENTLY ON 6 LITERS OF OXYGEN VIA NASAL CANNULA. LABS WERE OBTAINED. WBC 7.8, RBC 3.17, HGB 9.7, HCT 27.5, PLT COUNT 130, SODIUM 143, POTASSIUM 3.5, CHLORIDE 100, CARBON DIOXIDE 42.0, BUN 19, CREATININE 0.83, GLUCOSE 117, CALCIUM 8.6, TOTAL BILI 6.60, AST 23, ALT 9, ALK PHOS 166, BNP 1420, TOTAL PROTEIN 6.4, ALBUMIN 3.1. ABG OBTAINED AND REVEALED: PH 7.460, PC02 68, P02 50, HC03 48.4, 02 SAT 87, BASE EXCESS 20.8, A-A GRADIENT 122, FI02 36. 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 SPUTUM CULTURE IS POSITIVE FOR STENOTROPHOMONAS MALTOPHILIA AND JESSY ALBICANS. A CHEST XRAY WAS OBTAINED TODAY AND REVEALED: Heart size is normal. Nereida are normal. Lungs appear free of acute alveolar infiltrates and areas of consolidation. There are some inte rstitial lung changes present and stable. There is a focus of subsegmental atelectasis in the left perihilar region. Bony thorax is unremarkable. SHE IS CURRENTLY RECEIVING VANCOMYCIN 750MG IV Q12H, LEVAQUIN 500MG PO DAILY, RIFAMPIN 300MG PO BID, LINEZOLID 600MG IV BID, ALBUMIN 25% IV DAILY, DIFLUCAN 100MG PO DAILY, DUONEBS QID, PULMICORT NEBS BID, LASIX 40MG IV BID, DILAUDID 1MG IV Q4H PRN, ATIVAN 0.5MG PO BID, ECOTRIN 81MG PO DAILY, CATAPRES 0.1MG PO BID PRN, COLACE 100MG PO HX, LEXAPRO 10MG PO DAILY, ZETIA 10MG PO DAILY, FOLIC ACID 1MG PO DAILY, NEURONTIN 200MG PO TID, SYNTHROID 125MCG PO DAILY, MELATONIN 10MG PO HS, ROBAXIN 500MG PO TID, TOPROL XL 100MG PO DAILY, SINGULAIR 10MG PO HS, PE RCOCET 5/325MG PO Q6H PRN, PROTONIX 40MG PO DAILY, XARELTO 2.5MG PO BID, AND REQUIP 0.25MG PO TID. WE WILL DISCONTINUE THE RIFAMPIN AND LINEZOLID TODAY. SHE IS ENCOURAGED TO CONTINUE TO WEAR THE BIPAP THROUGHOUT THE DAY. SHE VERBALIZED UNDERSTANDING. WILL SEE PATIENT TODAY. OTHERWISE, WE WILL FOLLOW-UP WITH AM LABS AND CONTINUE TO MONITOR. TIME SPENT ON CLINICAL ASSESSMENT, REVIWING LABS AND IMAGING, DECISION MAKING, AND DOCUMENTATION GREATER THAN 45 MINUTES. - Past Medical Family Social History Past Med/Fam/Surg Hx: No changes since H&P Allergies: Allergies No Known Drug Allergies Allergy (Verified 07/23/22 21:06) - Review of Systems ROS: No change since H&P - Vital Signs and I&O's Vital Signs: Temperature 99.3 F Pulse Rate [Left Brachial] 82 Pulse Rate [Right Brachial] 87 Pulse Rate 84 Respiratory Rate 17 Blood Pressure [Left Arm] 138/63 Blood Pressure [Right Arm] 158/60 Blood Pressure 158/60 O2 Sat by Pulse Oximetry 93 Intake and Output: Intake & Output 08/05/22 08/06/22 08/07/22 08/08/22 11:59 11:59 11:59 11:59 Intake Total 1540 / 1540 2143 / 2143 1519 / 1519 1465 / 1465 Output Total 950 / 950 1400 / 1400 1880 / 1880 630 / 630 Balance 590 / 590 743 / 743 -361 / -361 835 / 835 - Physical Exam Oriented: Normal Eyes: Normal Ear: Normal Nose: Normal Throat: Normal Respiratory: Generalized, Diminished Cardiovascular: Normal : Normal Auscultation: Bowel Sounds: Normal Palpation: Normal Tenderness: Normal Skin: Decreased Turgur, Wound (MULTIPLE LEFT FOOT WOUNDS ) Musculoskeletal: Normal Psychiatric: Normal Mood Description: Calm Affect: Normal Speech Pattern: Appropriate - Laboratory and Diagnostics Result Diagrams: 08/08/22 04:50 08/08/22 04:50 Labs: 07/31/22 09:00 Sputum - Expectorated Sputum Sputum Culture - Final Stenotrophomonas Maltophilia Jessy Albicans 07/31/22 09:00 Sputum - Expectorated Sputum - Final 07/27/22 15:30 Foot - Left Wound Gram Stain - Final 07/27/22 15:30 Foot - Left Wound Culture - Final Methicillin Resis Staph Aureus 07/27/22 15:30 Foot - Left Wound Gram Stain - Final 07/27/22 15:30 Foot - Left Wound Culture - Final Laboratory WBC 5.5 X10^3/uL (3.6-10.0) 08/08/22 04:50 RBC 3.06 X10^6/uL (3.5-5.4) L 08/08/22 04:50 Hgb 9.0 g/dL (12.0-16.0) L 08/08/22 04:50 Hct 27.1 % (36.0-47.0) L 08/08/22 04:50 MCV 88.6 fL (80.0-100.0) 08/08/22 04:50 MCH 29.4 pg (27.0-34.0) 08/08/22 04:50 MCHC 33.2 g/dL (33.0-35.0) 08/08/22 04:50 RDW 14.8 % (11.6-16.5) 08/08/22 04:50 Plt Count 127 X10^3/uL (150.0-450.0) L 08/08/22 04:50 Plt Count Comment Decreased (ADEQUATE) A 07/30/22 05:32 MPV 8.1 fL (7.4-11.0) 08/08/22 04:50 Neut % (Auto) 73.4 % (42.0-75.0) 08/08/22 04:50 Lymph % (Auto) 12.1 % (21.0-51.0) L 08/08/22 04:50 [place]gs % (Auto) 9.7 % (0.0-13.0) 08/08/22 04:50 Eos % (Auto) 3.9 % (0.9-2.9) H 08/08/22 04:50 Baso % (Auto) 0.9 % (0.2-1.0) 08/08/22 04:50 Neut # (Auto) 4.0 x10^3/uL (2.2-4.8) 08/08/22 04:50 Lymph # (Auto) 0.7 X10^3/uL (1.3-2.9) L 08/08/22 04:50 [place]gs # (Auto) 0.5 x10^3/uL (0.3-0.8) 08/08/22 04:50 Eos # (Auto) 0.2 x10^3/uL (0.0-0.2) 08/08/22 04:50 Baso # (Auto) 0.0 X10^3/uL (0.0-0.1) 08/08/22 04:50 Absolute Nucleated RBC 0.0 /100WBC 08/08/22 04:50 Total Counted 100 07/30/22 05:32 Neutrophils % (Manual) 62 % (39-76) 07/30/22 05:32 Band Neutrophils % 3 % (0-10) 07/30/22 05:32 Lymphocytes % (Manual) 20 % (13-43) 07/30/22 05:32 Monocytes % (Manual) 8 % (4-9) 07/30/22 05:32 Eosinophils % (Manual) 3 % (0-6) 07/30/22 05:32 Metamyelocytes % 4 07/30/22 05:32 Plt Morphology Comment Normal (NORMAL) 07/30/22 05:32 RBC Morphology Normal (NORMAL) 07/30/22 05:32 PT 15.8 SECONDS (11.8-14.3) 07/24/22 05:32 INR Target Range - 07/24/22 05:32 INR 1.31 (0.8-1.3) H 07/24/22 05:32 APTT 29.2 SECONDS (22.9-36.5) 07/24/22 05:32 PTT Comment - 07/24/22 05:32 Sample Site Rr 08/07/22 05:00 ABG pH 7.450 (7.35-7.45) 08/07/22 05:00 ABG pCO2 66.0 mmHg (35.0-45.0) H* 08/07/22 05:00 ABG pO2 70.0 mmHg (80.0-100.0) L 08/07/22 05:00 ABG HCO3 45.9 mmol/L (22-26) H* 08/07/22 05:00 ABG O2 Saturation 95.0 % (90-100) 08/07/22 05:00 ABG Base Excess 18.5 mmol/L (-2.0-2.0) H 08/07/22 05:00 Lenard Test Pos 08/07/22 05:00 A-a Gradient 204.0 mmHg 08/07/22 05:00 FiO2 50.0 08/07/22 05:00 Blood Gas Comments Camilla well sw 08/07/22 05:00 Sodium 142 mmol/L (136-145) 08/08/22 04:50 Corrected Sodium TNP 08/08/22 04:50 Potassium 3.4 mmol/L (3.5-5.1) L 08/08/22 04:50 Chloride 100 mmol/L (98-107) 08/08/22 04:50 Carbon Dioxide 39.1 mmol/L (21-32) H 08/08/22 04:50 BUN 27 mg/dL (7-18) H 08/08/22 04:50 Creatinine 0.96 mg/dL (0.55-1.02) 08/08/22 04:50 Est GFR (MDRD) Af Amer > 60 (>60) 08/08/22 04:50 Est GFR (MDRD) Non-Af > 60 (>60) 08/08/22 04:50 Glucose 98 mg/dL (65-99) 08/08/22 04:50 POC Glucose (mg/dL) 148 mg/dL (65-99) H 07/27/22 08:37 Calcium 8.5 mg/dL (8.5-10.1) 08/08/22 04:50 Corrected Calcium 9.5 mg/dL (8.5-10.1) 08/08/22 04:50 Iron 18 ug/dL (50-175) L 08/05/22 05:16 Transferrin 172 mg/dL (202-364) L 08/05/22 05:16 Ferritin 125 ng/mL (8-252) 08/05/22 05:16 Total Bilirubin 1.50 mg/dL (0.2-1.0) H 08/08/22 04:50 AST 20 Units/L (15-37) 08/08/22 04:50 ALT 8 Units/L (12-78) L 08/08/22 04:50 Alkaline Phosphatase 132 Units/L (46-116) H 08/08/22 04:50 B-Natriuretic Peptide 132 pg/mL (0-79) H 08/08/22 04:50 Total Protein 6.0 g/dL (6.4-8.2) L 08/08/22 04:50 Albumin 2.8 g/dL (3.4-5.0) L 08/08/22 04:50 Globulin 3.2 g/dL (2.5-4.5) 08/08/22 04:50 Albumin/Globulin Ratio 0.9 Ratio (1.1-2.1) L 08/08/22 04:50 Vitamin B12 1013 pg/mL (193-986) H 08/05/22 05:16 Folate > 20.0 ng/mL (>8.6) 08/05/22 05:16 Specimen Type Catherized urine 08/04/22 21:25 Urine Color [place] (YELLOW) 08/04/22 21:25 Urine Appearance Clear (CLEAR) 08/04/22 21:25 Urine pH Cancelled 08/04/22 21:25 Ur Specific [place] Cancelled 08/04/22 21:25 Urine Protein Cancelled 08/04/22 21:25 Urine Glucose (UA) Cancelled 08/04/22 21:25 Urine Ketones Cancelled 08/04/22 21:25 Urine Blood Cancelled 08/04/22 21:25 Urine Nitrite Cancelled 08/04/22 21:25 Urine Bilirubin Cancelled 08/04/22 21:25 Urine Urobilinogen Cancelled 08/04/22 21:25 Ur Leukocyte Esterase Cancelled 08/04/22 21:25 Urine RBC 3-5 /HPF (0-3) A 08/04/22 21:25 Urine WBC 0-2 /HPF (0-5) 08/04/22 21:25 Ur Squamous Epith Cells Rare /HPF (NEGATIVE) 08/04/22 21:25 Calcium Oxalate Crystal Rare /HPF (NEGATIVE) 07/31/22 11:05 Urine Bacteria Negative /HPF (NEGATIVE) 08/04/22 21:25 Hyaline Casts Rare /LPF (NEGATIVE) 08/04/22 21:25 Urine Mucus Rare /HPF (NEGATIVE) 08/04/22 21:25 Ur Culture Indicated? No/not indicated 08/04/22 21:25 Stl C. diff Tox B Gene Negative (NEGATIVE) 08/06/22 21:32 Stl C. diff [id number] Presumptive negative (NEGATIVE) 08/06/22 21:32 Vancomycin Trough 18.3 ug/mL (-20) 08/07/22 19:38 SARS-CoV-2 (PCR) Negative (NEGATIVE) 08/02/22 13:15 SARS CoV-2 RNA Rapid SURI Cancelled 08/02/22 13:15 Blood Type O POSITIVE 08/05/22 10:15 Antibody Screen Negative 08/05/22 10:15 Crossmatch See Detail 08/05/22 10:15 - Plan (1) Wound of left ankle Status: Acute Qualifiers: Encounter type: initial encounter Qualified Code(s): S91.002A - Unspecified open wound, left ankle, initial encounter (2) Ischemia of left lower extremity Status: Acute (3) Pleural effusion due to CHF (congestive heart failure) Status: Acute (4) Pulmonary edema Status: Acute Qualifiers: Chronicity: acute Qualified Code(s): J81.0 - Acute pulmonary edema
--- NOTE | 2022-08-08 10:45 | PCM.PROG ---
Progress Note - Progress Note for Day of Date of Exam: 08/07/22 - Subjective Subjective: IS CURRENTLY BEING TREATED FOR LEFT FOOT NON-HEALING WOUND, BILATERAL PLEURAL EFFUSIONS, CHF, ANEMIA, AND SHORTNESS OF BREATH. SHE IS STATUS REVASCULARIZATION OF THE LEFT LEG AND DEBRIDEMENT OF WOUNDS TO THE LEFT LEG. SHE RECEIVED TWO UNITS OF PACKED RED BLOOD CELLS ON SATURDAY. TODAY, SHE IS ALERT AND ORIENTED, LYING IN BED ON MORNING ROUNDS. SHE CONTINUES WITH COMPLAINTS OF SHORTNESS OF BREATH AND WEAKNESS, BUT REPORTS SLIGHT IMPROVEMENT TODAY. SHE DID WEAR THE BIPAP SOME YESTERDAY AND THROUGHOUT THE NIGHT. HER VITALS THIS MORNING ARE: 100.0-95-22-92%-130/59. SHE IS CURRENTLY UTILIZING THE BIPAP. LABS WERE OBTAINED. WBC 6.1, RBC 3.05, HGB 9.3, HCT 27.1, PLT COUNT 112, SODIUM 144, POTASSIUM 3.5, CHLORIDE 100, CARBON DIOXIDE 37.8, BUN 20, CREATININE 0.91, GLUCOSE 90, CALCIUM 8.7, TOTAL BILI 3.50, AST 31, ALT 7, ALK PHOS 147, BNP 488, TOTAL PROTEIN 6.1, ALBUMIN 2.9. ABG OBTAINED AND REVEALED: PH 7.450, PC02 66, P02 70, HC03 45.9, 02 SAT 95, BASE EXCESS 18.5, A-A GRADIENT 204, FI02 50. 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 SPUTUM CULTURE IS POSITIVE FOR STENOTROPHOMONAS MALTOPHILIA AND JESSY ALBICANS. A CHEST XRAY WAS OBTAINED TODAY AND REVEALED: Mild worsening of bibasilar pleural parenchymal opacities. This may be any combination of pleural effusion, atelectasis, or pneumonia. SHE IS CURRENTLY RECEIVING VANCOMYCIN 750MG IV Q12H, LEVAQUIN 500MG PO DAILY, ALBUMIN 25% IV DAILY, DIFLUCAN 100MG PO DAILY, DUONEBS QID, PULMICORT NEBS BID, LASIX 40MG IV BID, DILAUDID 1MG IV Q4H PRN, ATIVAN 0.5MG PO BID, ECOTRIN 81MG PO DAILY, CATAPRES 0.1MG PO BID PRN, COLACE 100MG PO HX, LEXAPRO 10MG PO DAILY, ZETIA 10MG PO DAILY, FOLIC ACID 1MG PO DAILY, NEURONTIN 200MG PO TID, SYNTHROID 125MCG PO DAILY, MELATONIN 10MG PO HS, ROBAXIN 500MG PO TID, TOPROL XL 100MG PO DAILY, SINGULAIR 10MG PO HS, PERCOCET 5/325MG PO Q6H PRN, PROTONIX 40MG PO DAILY, XARELTO 2.5MG PO BID, AND REQUIP 0.25MG PO TID. SHE IS ENCOURAGED TO CONTINUE TO WEAR THE BIPAP THROUGHOUT THE DAY. SHE VERBALIZED UNDERSTANDING. WILL SEE PATIENT TODAY. OTHERWISE, WE WILL FOLLOW-UP WITH AM LABS AND CONTINUE TO MONITOR. TIME SPENT ON CLINICAL ASSESSMENT, REVIWING LABS AND IMAGING, DECISION MAKING, AND DOCUMENTATION GREATER THAN 45 MINUTES. - Past Medical Family Social History Past Med/Fam/Surg Hx: No changes since H&P Allergies: Allergies No Known Drug Allergies Allergy (Verified 07/23/22 21:06) - Review of Systems ROS: No change since H&P - Vital Signs and I&O's Vital Signs: Temperature 99.3 F Pulse Rate [Left Brachial] 82 Pulse Rate [Right Brachial] 87 Pulse Rate 84 Respiratory Rate 17 Blood Pressure [Left Arm] 138/63 Blood Pressure [Right Arm] 158/60 Blood Pressure 158/60 O2 Sat by Pulse Oximetry 93 Intake and Output: Intake & Output 08/05/22 08/06/22 08/07/22 08/08/22 11:59 11:59 11:59 11:59 Intake Total 1540 / 1540 2143 / 2143 1519 / 1519 1465 / 1465 Output Total 950 / 950 1400 / 1400 1880 / 1880 630 / 630 Balance 590 / 590 743 / 743 -361 / -361 835 / 835 - Physical Exam Oriented: Normal Eyes: Normal Ear: Normal Nose: Normal Throat: Normal Respiratory: Generalized, Diminished Cardiovascular: Normal : Normal Auscultation: Bowel Sounds: Normal Tenderness: Normal Skin: Decreased Turgur, Wound (MULTIPLE LEFT FOOT WOUNDS ) Musculoskeletal: Normal Psychiatric: Normal Mood Description: Calm Affect: Normal Speech Pattern: Appropriate - Laboratory and Diagnostics Result Diagrams: 08/08/22 04:50 08/08/22 04:50 Labs: 07/31/22 09:00 Sputum - Expectorated Sputum Sputum Culture - Final Stenotrophomonas Maltophilia Jessy Albicans 07/31/22 09:00 Sputum - Expectorated Sputum - Final 07/27/22 15:30 Foot - Left Wound Gram Stain - Final 07/27/22 15:30 Foot - Left Wound Culture - Final Methicillin Resis Staph Aureus 07/27/22 15:30 Foot - Left Wound Gram Stain - Final 07/27/22 15:30 Foot - Left Wound Culture - Final Laboratory WBC 5.5 X10^3/uL (3.6-10.0) 08/08/22 04:50 RBC 3.06 X10^6/uL (3.5-5.4) L 08/08/22 04:50 Hgb 9.0 g/dL (12.0-16.0) L 08/08/22 04:50 Hct 27.1 % (36.0-47.0) L 08/08/22 04:50 MCV 88.6 fL (80.0-100.0) 08/08/22 04:50 MCH 29.4 pg (27.0-34.0) 08/08/22 04:50 MCHC 33.2 g/dL (33.0-35.0) 08/08/22 04:50 RDW 14.8 % (11.6-16.5) 08/08/22 04:50 Plt Count 127 X10^3/uL (150.0-450.0) L 08/08/22 04:50 Plt Count Comment Decreased (ADEQUATE) A 07/30/22 05:32 MPV 8.1 fL (7.4-11.0) 08/08/22 04:50 Neut % (Auto) 73.4 % (42.0-75.0) 08/08/22 04:50 Lymph % (Auto) 12.1 % (21.0-51.0) L 08/08/22 04:50 [place] % (Auto) 9.7 % (0.0-13.0) 08/08/22 04:50 Eos % (Auto) 3.9 % (0.9-2.9) H 08/08/22 04:50 Baso % (Auto) 0.9 % (0.2-1.0) 08/08/22 04:50 Neut # (Auto) 4.0 x10^3/uL (2.2-4.8) 08/08/22 04:50 Lymph # (Auto) 0.7 X10^3/uL (1.3-2.9) L 08/08/22 04:50 [place] # (Auto) 0.5 x10^3/uL (0.3-0.8) 08/08/22 04:50 Eos # (Auto) 0.2 x10^3/uL (0.0-0.2) 08/08/22 04:50 Baso # (Auto) 0.0 X10^3/uL (0.0-0.1) 08/08/22 04:50 Absolute Nucleated RBC 0.0 /100WBC 08/08/22 04:50 Total Counted 100 07/30/22 05:32 Neutrophils % (Manual) 62 % (39-76) 07/30/22 05:32 Band Neutrophils % 3 % (0-10) 07/30/22 05:32 Lymphocytes % (Manual) 20 % (13-43) 07/30/22 05:32 Monocytes % (Manual) 8 % (4-9) 07/30/22 05:32 Eosinophils % (Manual) 3 % (0-6) 07/30/22 05:32 Metamyelocytes % 4 07/30/22 05:32 Plt Morphology Comment Normal (NORMAL) 07/30/22 05:32 RBC Morphology Normal (NORMAL) 07/30/22 05:32 PT 15.8 SECONDS (11.8-14.3) 07/24/22 05:32 INR Target Range - 07/24/22 05:32 INR 1.31 (0.8-1.3) H 07/24/22 05:32 APTT 29.2 SECONDS (22.9-36.5) 07/24/22 05:32 PTT Comment - 07/24/22 05:32 Sample Site Rr 08/07/22 05:00 ABG pH 7.450 (7.35-7.45) 08/07/22 05:00 ABG pCO2 66.0 mmHg (35.0-45.0) H* 08/07/22 05:00 ABG pO2 70.0 mmHg (80.0-100.0) L 08/07/22 05:00 ABG HCO3 45.9 mmol/L (22-26) H* 08/07/22 05:00 ABG O2 Saturation 95.0 % (90-100) 08/07/22 05:00 ABG Base Excess 18.5 mmol/L (-2.0-2.0) H 08/07/22 05:00 Lenard Test Pos 08/07/22 05:00 A-a Gradient 204.0 mmHg 08/07/22 05:00 FiO2 50.0 08/07/22 05:00 Blood Gas Comments Camilla well sw 08/07/22 05:00 Sodium 142 mmol/L (136-145) 08/08/22 04:50 Corrected Sodium TNP 08/08/22 04:50 Potassium 3.4 mmol/L (3.5-5.1) L 08/08/22 04:50 Chloride 100 mmol/L (98-107) 08/08/22 04:50 Carbon Dioxide 39.1 mmol/L (21-32) H 08/08/22 04:50 BUN 27 mg/dL (7-18) H 08/08/22 04:50 Creatinine 0.96 mg/dL (0.55-1.02) 08/08/22 04:50 Est GFR (MDRD) Af Amer > 60 (>60) 08/08/22 04:50 Est GFR (MDRD) Non-Af > 60 (>60) 08/08/22 04:50 Glucose 98 mg/dL (65-99) 08/08/22 04:50 POC Glucose (mg/dL) 148 mg/dL (65-99) H 07/27/22 08:37 Calcium 8.5 mg/dL (8.5-10.1) 08/08/22 04:50 Corrected Calcium 9.5 mg/dL (8.5-10.1) 08/08/22 04:50 Iron 18 ug/dL (50-175) L 08/05/22 05:16 Transferrin 172 mg/dL (202-364) L 08/05/22 05:16 Ferritin 125 ng/mL (8-252) 08/05/22 05:16 Total Bilirubin 1.50 mg/dL (0.2-1.0) H 08/08/22 04:50 AST 20 Units/L (15-37) 08/08/22 04:50 ALT 8 Units/L (12-78) L 08/08/22 04:50 Alkaline Phosphatase 132 Units/L (46-116) H 08/08/22 04:50 B-Natriuretic Peptide 132 pg/mL (0-79) H 08/08/22 04:50 Total Protein 6.0 g/dL (6.4-8.2) L 08/08/22 04:50 Albumin 2.8 g/dL (3.4-5.0) L 08/08/22 04:50 Globulin 3.2 g/dL (2.5-4.5) 08/08/22 04:50 Albumin/Globulin Ratio 0.9 Ratio (1.1-2.1) L 08/08/22 04:50 Vitamin B12 1013 pg/mL (193-986) H 08/05/22 05:16 Folate > 20.0 ng/mL (>8.6) 08/05/22 05:16 Specimen Type Catherized urine 08/04/22 21:25 Urine Color [place] (YELLOW) 08/04/22 21:25 Urine Appearance Clear (CLEAR) 08/04/22 21:25 Urine pH Cancelled 08/04/22 21:25 Ur Specific [place] Cancelled 08/04/22 21:25 Urine Protein Cancelled 08/04/22 21:25 Urine Glucose (UA) Cancelled 08/04/22 21:25 Urine Ketones Cancelled 08/04/22 21:25 Urine Blood Cancelled 08/04/22 21:25 Urine Nitrite Cancelled 08/04/22 21:25 Urine Bilirubin Cancelled 08/04/22 21:25 Urine Urobilinogen Cancelled 08/04/22 21:25 Ur Leukocyte Esterase Cancelled 08/04/22 21:25 Urine RBC 3-5 /HPF (0-3) A 08/04/22 21:25 Urine WBC 0-2 /HPF (0-5) 08/04/22 21:25 Ur Squamous Epith Cells Rare /HPF (NEGATIVE) 08/04/22 21:25 Calcium Oxalate Crystal Rare /HPF (NEGATIVE) 07/31/22 11:05 Urine Bacteria Negative /HPF (NEGATIVE) 08/04/22 21:25 Hyaline Casts Rare /LPF (NEGATIVE) 08/04/22 21:25 Urine Mucus Rare /HPF (NEGATIVE) 08/04/22 21:25 Ur Culture Indicated? No/not indicated 08/04/22 21:25 Stl C. diff Tox B Gene Negative (NEGATIVE) 08/06/22 21:32 Stl C. diff [id number] Presumptive negative (NEGATIVE) 08/06/22 21:32 Vancomycin Trough 18.3 ug/mL (15-20) 08/07/22 19:38 SARS-CoV-2 (PCR) Negative (NEGATIVE) 08/02/22 13:15 SARS CoV-2 RNA Rapid SURI Cancelled 08/02/22 13:15 Blood Type O POSITIVE 08/05/22 10:15 Antibody Screen Negative 08/05/22 10:15 Crossmatch See Detail 08/05/22 10:15 - Plan (1) Wound of left ankle Status: Acute Qualifiers: Encounter type: initial encounter Qualified Code(s): S91.002A - Unspecified open wound, left ankle, initial encounter (2) Ischemia of left lower extremity Status: Acute (3) Pleural effusion due to CHF (congestive heart failure) Status: Acute (4) Pulmonary edema Status: Acute Qualifiers: Chronicity: acute Qualified Code(s): J81.0 - Acute pulmonary edema
[2022-08-08] MEDS: MELATONIN PO SCH (21:11)
[2022-08-08] MEDS: SINGULAIR TAB 10 MG PO SCH (21:12)
[2022-08-08] MEDS: ALBUMIN HUMAN 25%- 100 ML 100 ML IV SCH (21:12)
[2022-08-08] MEDS: COLACE CAP 100 MG PO SCH (21:12)
[2022-08-08] MEDS ORDERED: NS 1,000 ML IV 1,000 ML ONE (23:50)
--- NOTE | 2022-08-08 23:58 | NOTE.SOAP ---
Soap Note Note for Day of Date of Exam: 08/08/22 Subjective Data Subjective Data: See previous notes. Diarrhea nearly resolved . Less SOB. On high flow O2. Left leg dressing in place. Objective Data Temperature: 98.3 F Pulse Rate: 75 Respiratory Rate: 20 Blood Pressure: 155/63 O2 Sat by Pulse Oximetry: 93 Objective Data: On 50 % FIO2. Left foot warm. Dressing in place. Plan Plan: continue present care
[2022-08-09] MEDS: ROBAXIN PO SCH ×3 (05:33→21:18)
[2022-08-09] MEDS: REQUIP PO SCH ×3 (05:33→21:11)
[2022-08-09] MEDS: SYNTHROID 125 mcg TAB PO SCH (05:33)
[2022-08-09] MEDS: NEURONTIN CAP 100 MG PO SCH ×3 (05:33→21:11)
[2022-08-09 06:41] LABS: ALANINE AMINOTRANSFERASE 7 Units/L (12-78); ALKALINE PHOSPHATASE 126 Units/L (46-116); ASPARTATE AMINO TRANSFERASE 23 Units/L (15-37); BLOOD UREA NITROGEN 25 mg/dL (7-18); CALCIUM 9.1 mg/dL (8.5-10.1); CARBON DIOXIDE 38.2 mmol/L (21-32); CHLORIDE 102 mmol/L (98-107); COR CA(FOR HYPOALB) 9.9 mg/dL (8.5-10.1); CREATININE 0.89 mg/dL (0.55-1.02); SODIUM 144 mmol/L (136-145); TOTAL PROTEIN 6.3 g/dL (6.4-8.2); eGFR NON BLACK RACES > 60 (>60)
[2022-08-09 06:45] LABS: BASOPHILS % (AUTO) 1.2 % (0.2-1.0); EOSINOPHILS # (AUTO) 0.2 x10^3/uL (0.0-0.2); EOSINOPHILS % (AUTO) 4.3 % (0.9-2.9); HEMATOCRIT 26.5 % (36.0-47.0); HEMOGLOBIN 9.1 g/dL (12.0-16.0); LYMPHOCYTES # (AUTO) 0.7 X10^3/uL (1.3-2.9); LYMPHOCYTES % (AUTO) 18.6 % (21.0-51.0); MEAN CORPUSCULAR HEMOGLOBIN 30.3 pg (27.0-34.0); MEAN CORPUSCULAR HGB CONC 34.2 g/dL (33.0-35.0); MEAN CORPUSCULAR VOLUME 88.6 fL (80.0-100.0); MEAN PLATELET VOLUME 8.2 fL (7.4-11.0); MONOCYTES # (AUTO) 0.5 x10^3/uL (0.3-0.8); MONOCYTES % (AUTO) 12.8 % (0.0-13.0); NEUTROPHILS # (AUTO) 2.4 x10^3/uL (2.2-4.8); NEUTROPHILS % (AUTO) 63.1 % (42.0-75.0); RED BLOOD COUNT 2.99 X10^6/uL (3.5-5.4); RED CELL DISTRIBUTION WIDTH 14.8 % (11.6-16.5); WHITE BLOOD COUNT 3.8 X10^3/uL (3.6-10.0)
[2022-08-09] MEDS: PHARMACY CONSULT - VANCOMYCIN XX SCH (07:14)
[2022-08-09 07:29] LABS: BAND NEUTROPHILS % 6 % (0-10); PLATELET MORPHOLOGY COMMENT NORMAL (NORMAL)
[2022-08-09] MEDS ORDERED: TOPROL XL PO ONE (08:08)
[2022-08-09] MEDS ORDERED: LEXAPRO ONE (08:08)
[2022-08-09] MEDS: VITAMIN D3 125 mcg (5,000 UNITS) PO SCH (08:17)
[2022-08-09] MEDS: XARELTO PO SCH ×2 (08:17→21:10)
[2022-08-09] MEDS: TOPROL XL PO SCH (08:17)
[2022-08-09] MEDS: ENTRESTO 24/26 MG TAB PO SCH ×2 (08:17→21:11)
[2022-08-09] MEDS: NU IRON PO SCH (08:17)
[2022-08-09] MEDS: LEVAQUIN TAB 500 MG PO SCH (08:18)
[2022-08-09] MEDS: ASPIRIN EC 81 MG PO SCH (08:18)
[2022-08-09] MEDS: FOLIC ACID TAB 1 MG PO SCH (08:18)
[2022-08-09] MEDS: PROTONIX TAB 40 MG PO SCH (08:18)
[2022-08-09] MEDS: ZETIA TAB 10 MG PO SCH (08:18)
[2022-08-09] MEDS: LEXAPRO PO SCH (08:18)
[2022-08-09] MEDS: LASIX IVP SCH ×2 (08:19→16:01)
--- NOTE | 2022-08-09 08:54 | PCM.PROG ---
Progress Note - Progress Note for Day of Date of Exam: 08/08/22 - Subjective Subjective: IS CURRENTLY BEING TREATED FOR LEFT FOOT NON-HEALING WOUND, BILATERAL PLEURAL EFFUSIONS, CHF, ANEMIA, AND SHORTNESS OF BREATH. SHE IS STATUS REVASCULARIZATION OF THE LEFT LEG AND DEBRIDEMENT OF WOUNDS TO THE LEFT LEG. SHE RECEIVED TWO UNITS OF PACKED RED BLOOD CELLS ON SATURDAY. TODAY, SHE IS ALERT AND ORIENTED, LYING IN BED ON MORNING ROUNDS. SHE CONTINUES WITH COMPLAINTS OF SHORTNESS OF BREATH AND WEAKNESS, BUT CONTINUES TO REPORT SLIGHT IMPROVEMENT TODAY. SHE DID WEAR THE BIPAP SOME YESTERDAY AND THROUGHOUT THE NIGHT. SHE IS CURRENTLY ON HEATED HIGH FLOW OXYGEN WITH FI02 45%. HER VITALS THIS MORNING ARE: 99.3-82-20-91%-138/63. LABS WERE OBTAINED. WBC 5.5, RBC 3.06, HGB 9.0, HCT 27.1, PLT COUNT 127, SODIUM 142, POTASSIUM 3.4, CARBON DIOXIDE 39.1, BUN 27, CREATININE 0.96, GLUCOSE 98, CALCIUM 8.5, TOTAL BILI 1.50, ALT 8, ALK PHOS 132, BNP 132, TOTAL PROTEIN 6.0, ALBUMIN 2.8. ABG OBTAINED AND REVEALED: PH 7.450, PC02 66, P02 70, HC03 45.9, 02 SAT 95, BASE EXCESS 18.5, A-A GRADIENT 204, FI02 50. 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 SPUTUM CULTURE IS POSITIVE FOR STENOTROPHOMONAS MALTOPHILIA AND JESSY ALBICANS. A CHEST XRAY WAS OBTAINED TODAY AND REVEALED: Right lung now clear. Left perihilar subsegmental atelectasis unchanged. Increasing density in the retrocardiac area of the left lower lobe which could indicate developing atelectasis, infiltrate or pleural effusion. SHE IS CURRENTLY RECEIVING VANCOMYCIN 750MG IV Q12H, LEVAQUIN 500MG PO DAILY, ALBUMIN 25% IV DAILY, DIFLUCAN 100MG PO DAILY, DUONEBS QID, PULMICORT NEBS BID, LASIX 40MG IV BID, DILAUDID 1MG IV Q4H PRN, ATIVAN 0.5MG PO BID, ECOTRIN 81MG PO DAILY, CATAPRES 0.1MG PO BID PRN, COLACE 100MG PO HX, LEXAPRO 10MG PO DAILY, ZETIA 10MG PO DAILY, FOLIC ACID 1MG PO DAILY, NEURONTIN 200MG PO TID, SYNTHROID 125MCG PO DAILY, MELATONIN 10MG PO HS, ROBAXIN 500MG PO TID, TOPROL XL 100MG PO DAILY, SINGULAIR 10MG PO HS, PERCOCET 5/325MG PO Q6H PRN, PROTONIX 40MG PO DAILY, XARELTO 2.5MG PO BID, AND REQUIP 0.25MG PO TID. WE WILL CONTINUE WITH CURRENT PLAN OF CARE TODAY. OTHERWISE, WE WILL FOLLOW-UP WITH AM LABS AND CONTINUE TO MONITOR. TIME SPENT ON CLINICAL ASSESSMENT, REVIWING LABS AND IMAGING, DECISION MAKING, AND DOCUMENTATION GREATER THAN 45 MINUTES. - Past Medical Family Social History Past Med/Fam/Surg Hx: No changes since H&P Allergies: Allergies No Known Drug Allergies Allergy (Verified 07/23/22 21:06) - Review of Systems ROS: No change since H&P - Vital Signs and I&O's Vital Signs: Temperature 98.7 F Pulse Rate [Left Brachial] 80 Pulse Rate [Right Brachial] 87 Pulse Rate 75 Respiratory Rate 20 Blood Pressure [Left Arm] 157/71 Blood Pressure [Right Arm] 151/65 Blood Pressure 155/63 O2 Sat by Pulse Oximetry 88 Intake and Output: Intake & Output 08/06/22 08/07/22 08/08/22 08/09/22 11:59 11:59 11:59 11:59 Intake Total 2143 / 2143 1519 / 1519 1465 / 1465 1570 / 1570 Output Total 1400 / 1400 1880 / 1880 630 / 630 1480 / 1480 Balance 743 / 743 -361 / -361 835 / 835 90 / 90 - Physical Exam Oriented: Normal Eyes: Normal Ear: Normal Nose: Normal Throat: Normal Respiratory: Generalized, Diminished Cardiovascular: Normal : Normal Auscultation: Bowel Sounds: Normal Palpation: Normal Tenderness: Normal Skin: Decreased Turgur, Wound (MULTIPLE LEFT FOOT WOUNDS ) Musculoskeletal: Normal Psychiatric: Normal Mood Description: Calm Affect: Normal Speech Pattern: Appropriate - Laboratory and Diagnostics Result Diagrams: 08/09/22 05:20 08/09/22 05:20 Labs: 07/31/22 09:00 Sputum - Expectorated Sputum Sputum Culture - Final Stenotrophomonas Maltophilia Jessy Albicans 07/31/22 09:00 Sputum - Expectorated Sputum - Final 07/27/22 15:30 Foot - Left Wound Gram Stain - Final 07/27/22 15:30 Foot - Left Wound Culture - Final Methicillin Resis Staph Aureus 07/27/22 15:30 Foot - Left Wound Gram Stain - Final 07/27/22 15:30 Foot - Left Wound Culture - Final Laboratory WBC 3.8 X10^3/uL (3.6-10.0) 08/09/22 05:20 RBC 2.99 X10^6/uL (3.5-5.4) L 08/09/22 05:20 Hgb 9.1 g/dL (12.0-16.0) L 08/09/22 05:20 Hct 26.5 % (36.0-47.0) L 08/09/22 05:20 MCV 88.6 fL (80.0-100.0) 08/09/22 05:20 MCH 30.3 pg (27.0-34.0) 08/09/22 05:20 MCHC 34.2 g/dL (33.0-35.0) 08/09/22 05:20 RDW 14.8 % (11.6-16.5) 08/09/22 05:20 Plt Count 105 X10^3/uL (150.0-450.0) L 08/09/22 05:20 Plt Count Comment Decreased (ADEQUATE) A 08/09/22 05:20 MPV 8.2 fL (7.4-11.0) 08/09/22 05:20 Neut % (Auto) 63.1 % (42.0-75.0) 08/09/22 05:20 Lymph % (Auto) 18.6 % (21.0-51.0) L 08/09/22 05:20 [place] % (Auto) 12.8 % (0.0-13.0) 08/09/22 05:20 Eos % (Auto) 4.3 % (0.9-2.9) H 08/09/22 05:20 Baso % (Auto) 1.2 % (0.2-1.0) H 08/09/22 05:20 Neut # (Auto) 2.4 x10^3/uL (2.2-4.8) 08/09/22 05:20 Lymph # (Auto) 0.7 X10^3/uL (1.3-2.9) L 08/09/22 05:20 [place] # (Auto) 0.5 x10^3/uL (0.3-0.8) 08/09/22 05:20 Eos # (Auto) 0.2 x10^3/uL (0.0-0.2) 08/09/22 05:20 Baso # (Auto) 0.0 X10^3/uL (0.0-0.1) 08/09/22 05:20 Absolute Nucleated RBC 0.1 /100WBC 08/09/22 05:20 Total Counted 100 08/09/22 05:20 Neutrophils % (Manual) 54 % (39-76) 08/09/22 05:20 Band Neutrophils % 6 % (0-10) 08/09/22 05:20 Lymphocytes % (Manual) 26 % (13-43) 08/09/22 05:20 Monocytes % (Manual) 9 % (4-9) 08/09/22 05:20 Eosinophils % (Manual) 5 % (0-6) 08/09/22 05:20 Metamyelocytes % 4 07/30/22 05:32 Plt Morphology Comment Normal (NORMAL) 08/09/22 05:20 RBC Morphology Normal (NORMAL) 08/09/22 05:20 PT 15.8 SECONDS (11.8-14.3) 07/24/22 05:32 INR Target Range - 07/24/22 05:32 INR 1.31 (0.8-1.3) H 07/24/22 05:32 APTT 29.2 SECONDS (22.9-36.5) 07/24/22 05:32 PTT Comment - 07/24/22 05:32 Sample Site Rr 08/07/22 05:00 ABG pH 7.450 (7.35-7.45) 08/07/22 05:00 ABG pCO2 66.0 mmHg (35.0-45.0) H* 08/07/22 05:00 ABG pO2 70.0 mmHg (80.0-100.0) L 08/07/22 05:00 ABG HCO3 45.9 mmol/L (22-26) H* 08/07/22 05:00 ABG O2 Saturation 95.0 % (90-100) 08/07/22 05:00 ABG Base Excess 18.5 mmol/L (-2.0-2.0) H 08/07/22 05:00 Lenard Test Pos 08/07/22 05:00 A-a Gradient 204.0 mmHg 08/07/22 05:00 FiO2 50.0 08/07/22 05:00 Blood Gas Comments Camilla well sw 08/07/22 05:00 Sodium 144 mmol/L (136-145) 08/09/22 05:20 Corrected Sodium TNP 08/09/22 05:20 Potassium 4.0 mmol/L (3.5-5.1) 08/09/22 05:20 Chloride 102 mmol/L (98-107) 08/09/22 05:20 Carbon Dioxide 38.2 mmol/L (21-32) H 08/09/22 05:20 BUN 25 mg/dL (7-18) H 08/09/22 05:20 Creatinine 0.89 mg/dL (0.55-1.02) 08/09/22 05:20 Est GFR (MDRD) Af Amer > 60 (>60) 08/09/22 05:20 Est GFR (MDRD) Non-Af > 60 (>60) 08/09/22 05:20 Glucose 87 mg/dL (65-99) 08/09/22 05:20 POC Glucose (mg/dL) 148 mg/dL (65-99) H 07/27/22 08:37 Calcium 9.1 mg/dL (8.5-10.1) 08/09/22 05:20 Corrected Calcium 9.9 mg/dL (8.5-10.1) 08/09/22 05:20 Iron 18 ug/dL (50-175) L 08/05/22 05:16 Transferrin 172 mg/dL (202-364) L 08/05/22 05:16 Ferritin 125 ng/mL (8-252) 08/05/22 05:16 Total Bilirubin 1.30 mg/dL (0.2-1.0) H 08/09/22 05:20 AST 23 Units/L (15-37) 08/09/22 05:20 ALT 7 Units/L (12-78) L 08/09/22 05:20 Alkaline Phosphatase 126 Units/L (46-116) H 08/09/22 05:20 B-Natriuretic Peptide 267 pg/mL (0-79) H 08/09/22 05:20 Total Protein 6.3 g/dL (6.4-8.2) L 08/09/22 05:20 Albumin 3.0 g/dL (3.4-5.0) L 08/09/22 05:20 Globulin 3.3 g/dL (2.5-4.5) 08/09/22 05:20 Albumin/Globulin Ratio 0.9 Ratio (1.1-2.1) L 08/09/22 05:20 Vitamin B12 1013 pg/mL (193-986) H 08/05/22 05:16 Folate > 20.0 ng/mL (>8.6) 08/05/22 05:16 Specimen Type Catherized urine 08/04/22 21:25 Urine Color [place] (YELLOW) 08/04/22 21:25 Urine Appearance Clear (CLEAR) 08/04/22 21:25 Urine pH Cancelled 08/04/22 21:25 Ur Specific [place] Cancelled 08/04/22 21:25 Urine Protein Cancelled 08/04/22 21:25 Urine Glucose (UA) Cancelled 08/04/22 21:25 Urine Ketones Cancelled 08/04/22 21:25 Urine Blood Cancelled 08/04/22 21:25 Urine Nitrite Cancelled 08/04/22 21:25 Urine Bilirubin Cancelled 08/04/22 21:25 Urine Urobilinogen Cancelled 08/04/22 21:25 Ur Leukocyte Esterase Cancelled 08/04/22 21:25 Urine RBC 3-5 /HPF (0-3) A 08/04/22 21:25 Urine WBC 0-2 /HPF (0-5) 08/04/22 21:25 Ur Squamous Epith Cells Rare /HPF (NEGATIVE) 08/04/22 21:25 Calcium Oxalate Crystal Rare /HPF (NEGATIVE) 07/31/22 11:05 Urine Bacteria Negative /HPF (NEGATIVE) 08/04/22 21:25 Hyaline Casts Rare /LPF (NEGATIVE) 08/04/22 21:25 Urine Mucus Rare /HPF (NEGATIVE) 08/04/22 21:25 Ur Culture Indicated? No/not indicated 08/04/22 21:25 Stl C. diff Tox B Gene Negative (NEGATIVE) 08/06/22 21:32 Stl C. diff [id number] Presumptive negative (NEGATIVE) 08/06/22 21:32 Vancomycin Trough 18.3 ug/mL (15-20) 08/07/22 19:38 SARS-CoV-2 (PCR) Negative (NEGATIVE) 08/02/22 13:15 SARS CoV-2 RNA Rapid SURI Cancelled 08/02/22 13:15 Blood Type O POSITIVE 08/05/22 10:15 Antibody Screen Negative 08/05/22 10:15 Crossmatch See Detail 08/05/22 10:15 - Plan (1) Wound of left ankle Status: Acute Qualifiers: Encounter type: initial encounter Qualified Code(s): S91.002A - Unspecified open wound, left ankle, initial encounter (2) Ischemia of left lower extremity Status: Acute (3) Pleural effusion due to CHF (congestive heart failure) Status: Acute (4) Pulmonary edema Status: Acute Qualifiers: Chronicity: acute Qualified Code(s): J81.0 - Acute pulmonary edema
[2022-08-09 09:03] LABS: CREATININE 0.85 mg/dL (0.55-1.02)
[2022-08-09 09:17] LABS: VANCOMYCIN,TROUGH 21.1 ug/mL (15-20)
[2022-08-09] MEDS: VANCOMYCIN IV *PREMIX 750 mg/150 ML BAG 750 MG/150 ML PIGGYBACK IV SCH (09:18)
[2022-08-09] MEDS: DUONEB 0.5 MG/3 MG (3 mL) NEB SCH ×4 (09:40→20:00)
[2022-08-09] MEDS: PULMICORT NEB TX 0.5 MG NEB SCH ×2 (09:40→20:00)
--- NOTE | 2022-08-09 10:11 | RAD ---
HISTORYSOBSTUDYCHEST, 1 [id number] al areas of airspace opacity are present likely representing bronchopneumonia. The findings have progressed since yesterday.There may be small pleural effusions. No pneumothorax.Heart size is normal. Vascular calcifications are present compatible with atherosclerosis.Bones are unremarkable. []IMPRESSION1. Progressed bronchopneumoniaElectronically signed by: Mariano Jackson (Aug 09, 2022 10:09:15)
[2022-08-09] MEDS: LOMOTIL PO PRN ×2 (11:10→21:10)
--- NOTE | 2022-08-09 11:46 | PCM.PROG ---
Progress Note - Progress Note for Day of Date of Exam: 08/09/22 - Subjective Subjective: IS CURRENTLY BEING TREATED FOR LEFT FOOT NON-HEALING WOUND, BILATERAL PLEURAL EFFUSIONS, CHF, ANEMIA, AND SHORTNESS OF BREATH. SHE IS STATUS REVASCULARIZATION OF THE LEFT LEG AND DEBRIDEMENT OF WOUNDS TO THE LEFT LEG. SHE RECEIVED TWO UNITS OF PACKED RED BLOOD CELLS ON SATURDAY. TODAY, SHE IS ALERT AND ORIENTED, LYING IN BED ON MORNING ROUNDS. SHE CONTINUES WITH COMPLAINTS OF SHORTNESS OF BREATH AND WEAKNESS, BUT CONTINUES TO REPORT SLIGHT IMPROVEMENT TODAY. SHE ALSO ADMITS TO DIARRHEA. SHE DID WEAR THE BIPAP THROUGHOUT THE NIGHT. SHE IS CURRENTLY ON HEATED HIGH FLOW OXYGEN WITH FI02 50%. HER VITALS THIS MORNING ARE: 98.7-80-20-88%-151/65. LABS WERE OBTAINED. WBC 3.8, RBC 2.99, HGB 9.1, HCT 26.5, PLT COUNT 105, SODIUM 144, POTASSIUM 4.0, CHLORIDE 102, CARBON DIOXIDE 38.2, BUN 25, CREATININE 0.89, GLUCOSE 87, CALCIUM 9.1, TOTAL BILIRUBIN 1.30, AST 23, ALT 7, ALK PHOS 126, BNP 267, TOTAL PROTEIN 6.3, ALBUMIN 3.0. 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 SPUTUM CULTURE IS POSITIVE FOR STENOTROPHOMONAS MALTOPHILIA AND JESSY ALBICANS. A CHEST XRAY WAS OBTAINED TODAY AND REVEALED: 1. Progressed bronchopneumonia. SHE IS CURRENTLY RECEIVING VANCOMYCIN 750MG IV Q12H, LEVAQUIN 500MG PO DAILY, ALBUMIN 25% IV DAILY, DIFLUCAN 100MG PO DAILY, DUONEBS QID, PULMICORT NEBS BID, LASIX 40MG IV BID, DILAUDID 1MG IV Q4H PRN, ATIVAN 0.5MG PO BID, ECOTRIN 81MG PO DAILY, CATAPRES 0.1MG PO BID PRN, COLACE 100MG PO HX, LEXAPRO 10MG PO DAILY, ZETIA 10MG PO DAILY, FOLIC ACID 1MG PO DAILY, NEURONTIN 200MG PO TID, SYNTHROID 125MCG PO DAILY, MELATONIN 10MG PO HS, ROBAXIN 500MG PO TID, TOPROL XL 100MG PO DAILY, SINGULAIR 10MG PO HS, PERCOCET 5/325MG PO Q6H PRN, PROTONIX 40MG PO DAILY, XARELTO 2.5MG PO BID, AND REQUIP 0.25MG PO TID. WE WILL ADD LOMOTIL 1 TAB QID. OTHERWISE, WE WILL CONTINUE WITH CURRENT PLAN OF CARE TODAY. WE WILL FOLLOW-UP WITH AM LABS AND CONTINUE TO MONITOR. TIME SPENT ON CLINICAL ASSESSMENT, REVIWING LABS AND IMAGING, DECISION MAKING, AND DOCUMENTATION GREATER THAN 45 MINUTES. - Past Medical Family Social History Past Med/Fam/Surg Hx: No changes since H&P Allergies: Allergies No Known Drug Allergies Allergy (Verified 07/23/22 21:06) - Review of Systems ROS: No change since H&P - Vital Signs and I&O's Vital Signs: Temperature 98.7 F Pulse Rate [Left Brachial] 80 Pulse Rate [Right Brachial] 87 Pulse Rate 82 Respiratory Rate 20 Blood Pressure [Left Arm] 157/71 Blood Pressure [Right Arm] 151/65 Blood Pressure 155/63 O2 Sat by Pulse Oximetry 92 Intake and Output: Intake & Output 08/06/22 08/07/22 08/08/22 08/09/22 11:59 11:59 11:59 11:59 Intake Total 2143 / 2143 1519 / 1519 1465 / 1465 1570 / 1570 Output Total 1400 / 1400 1880 / 1880 630 / 630 1480 / 1480 Balance 743 / 743 -361 / -361 835 / 835 90 / 90 - Physical Exam Oriented: Normal Eyes: Normal Ear: Normal Nose: Normal Throat: Normal Respiratory: Generalized, Diminished Cardiovascular: Normal : Normal Auscultation: Bowel Sounds: Normal Palpation: Normal Tenderness: Normal Skin: Decreased Turgur, Wound (MULTIPLE LEFT FOOT WOUNDS ) Musculoskeletal: Normal Psychiatric: Normal Mood Description: Calm Affect: Normal Speech Pattern: Appropriate - Laboratory and Diagnostics Result Diagrams: 08/09/22 05:20 08/09/22 08:18 Labs: 07/31/22 09:00 Sputum - Expectorated Sputum Sputum Culture - Final Stenotrophomonas Maltophilia Jessy Albicans 07/31/22 09:00 Sputum - Expectorated Sputum - Final 07/27/22 15:30 Foot - Left Wound Gram Stain - Final 07/27/22 15:30 Foot - Left Wound Culture - Final Methicillin Resis Staph Aureus 07/27/22 15:30 Foot - Left Wound Gram Stain - Final 07/27/22 15:30 Foot - Left Wound Culture - Final Laboratory WBC 3.8 X10^3/uL (3.6-10.0) 08/09/22 05:20 RBC 2.99 X10^6/uL (3.5-5.4) L 08/09/22 05:20 Hgb 9.1 g/dL (12.0-16.0) L 08/09/22 05:20 Hct 26.5 % (36.0-47.0) L 08/09/22 05:20 MCV 88.6 fL (80.0-100.0) 08/09/22 05:20 MCH 30.3 pg (27.0-34.0) 08/09/22 05:20 MCHC 34.2 g/dL (33.0-35.0) 08/09/22 05:20 RDW 14.8 % (11.6-16.5) 08/09/22 05:20 Plt Count 105 X10^3/uL (150.0-450.0) L 08/09/22 05:20 Plt Count Comment Decreased (ADEQUATE) A 08/09/22 05:20 MPV 8.2 fL (7.4-11.0) 08/09/22 05:20 Neut % (Auto) 63.1 % (42.0-75.0) 08/09/22 05:20 Lymph % (Auto) 18.6 % (21.0-51.0) L 08/09/22 05:20 [place] % (Auto) 12.8 % (0.0-13.0) 08/09/22 05:20 Eos % (Auto) 4.3 % (0.9-2.9) H 08/09/22 05:20 Baso % (Auto) 1.2 % (0.2-1.0) H 08/09/22 05:20 Neut # (Auto) 2.4 x10^3/uL (2.2-4.8) 08/09/22 05:20 Lymph # (Auto) 0.7 X10^3/uL (1.3-2.9) L 08/09/22 05:20 [place] # (Auto) 0.5 x10^3/uL (0.3-0.8) 08/09/22 05:20 Eos # (Auto) 0.2 x10^3/uL (0.0-0.2) 08/09/22 05:20 Baso # (Auto) 0.0 X10^3/uL (0.0-0.1) 08/09/22 05:20 Absolute Nucleated RBC 0.1 /100WBC 08/09/22 05:20 Total Counted 100 08/09/22 05:20 Neutrophils % (Manual) 54 % (39-76) 08/09/22 05:20 Band Neutrophils % 6 % (0-10) 08/09/22 05:20 Lymphocytes % (Manual) 26 % (13-43) 08/09/22 05:20 Monocytes % (Manual) 9 % (4-9) 08/09/22 05:20 Eosinophils % (Manual) 5 % (0-6) 08/09/22 05:20 Metamyelocytes % 4 07/30/22 05:32 Plt Morphology Comment Normal (NORMAL) 08/09/22 05:20 RBC Morphology Normal (NORMAL) 08/09/22 05:20 PT 15.8 SECONDS (11.8-14.3) 07/24/22 05:32 INR Target Range - 07/24/22 05:32 INR 1.31 (0.8-1.3) H 07/24/22 05:32 APTT 29.2 SECONDS (22.9-36.5) 07/24/22 05:32 PTT Comment - 07/24/22 05:32 Sample Site Rr 08/07/22 05:00 ABG pH 7.450 (7.35-7.45) 08/07/22 05:00 ABG pCO2 66.0 mmHg (35.0-45.0) H* 08/07/22 05:00 ABG pO2 70.0 mmHg (80.0-100.0) L 08/07/22 05:00 ABG HCO3 45.9 mmol/L (22-26) H* 08/07/22 05:00 ABG O2 Saturation 95.0 % (90-100) 08/07/22 05:00 ABG Base Excess 18.5 mmol/L (-2.0-2.0) H 08/07/22 05:00 Lenard Test Pos 08/07/22 05:00 A-a Gradient 204.0 mmHg 08/07/22 05:00 FiO2 50.0 08/07/22 05:00 Blood Gas Comments Camilla well sw 08/07/22 05:00 Sodium 144 mmol/L (136-145) 08/09/22 05:20 Corrected Sodium TNP 08/09/22 05:20 Potassium 4.0 mmol/L (3.5-5.1) 08/09/22 05:20 Chloride 102 mmol/L (98-107) 08/09/22 05:20 Carbon Dioxide 38.2 mmol/L (21-32) H 08/09/22 05:20 BUN 25 mg/dL (7-18) H 08/09/22 05:20 Creatinine 0.85 mg/dL (0.55-1.02) 08/09/22 08:18 Est GFR (MDRD) Af Amer > 60 (>60) 08/09/22 05:20 Est GFR (MDRD) Non-Af > 60 (>60) 08/09/22 05:20 Glucose 87 mg/dL (65-99) 08/09/22 05:20 POC Glucose (mg/dL) 148 mg/dL (65-99) H 07/27/22 08:37 Calcium 9.1 mg/dL (8.5-10.1) 08/09/22 05:20 Corrected Calcium 9.9 mg/dL (8.5-10.1) 08/09/22 05:20 Iron 18 ug/dL (50-175) L 08/05/22 05:16 Transferrin 172 mg/dL (202-364) L 08/05/22 05:16 Ferritin 125 ng/mL (8-252) 08/05/22 05:16 Total Bilirubin 1.30 mg/dL (0.2-1.0) H 08/09/22 05:20 AST 23 Units/L (15-37) 08/09/22 05:20 ALT 7 Units/L (12-78) L 08/09/22 05:20 Alkaline Phosphatase 126 Units/L (46-116) H 08/09/22 05:20 B-Natriuretic Peptide 267 pg/mL (0-79) H 08/09/22 05:20 Total Protein 6.3 g/dL (6.4-8.2) L 08/09/22 05:20 Albumin 3.0 g/dL (3.4-5.0) L 08/09/22 05:20 Globulin 3.3 g/dL (2.5-4.5) 08/09/22 05:20 Albumin/Globulin Ratio 0.9 Ratio (1.1-2.1) L 08/09/22 05:20 Vitamin B12 1013 pg/mL (193-986) H 08/05/22 05:16 Folate > 20.0 ng/mL (>8.6) 08/05/22 05:16 Specimen Type Catherized urine 08/04/22 21:25 Urine Color [place] (YELLOW) 08/04/22 21:25 Urine Appearance Clear (CLEAR) 08/04/22 21:25 Urine pH Cancelled 08/04/22 21:25 Ur Specific [place] Cancelled 08/04/22 21:25 Urine Protein Cancelled 08/04/22 21:25 Urine Glucose (UA) Cancelled 08/04/22 21:25 Urine Ketones Cancelled 08/04/22 21:25 Urine Blood Cancelled 08/04/22 21:25 Urine Nitrite Cancelled 08/04/22 21:25 Urine Bilirubin Cancelled 08/04/22 21:25 Urine Urobilinogen Cancelled 08/04/22 21:25 Ur Leukocyte Esterase Cancelled 08/04/22 21:25 Urine RBC 3-5 /HPF (0-3) A 08/04/22 21:25 Urine WBC 0-2 /HPF (0-5) 08/04/22 21:25 Ur Squamous Epith Cells Rare /HPF (NEGATIVE) 08/04/22 21:25 Calcium Oxalate Crystal Rare /HPF (NEGATIVE) 07/31/22 11:05 Urine Bacteria Negative /HPF (NEGATIVE) 08/04/22 21:25 Hyaline Casts Rare /LPF (NEGATIVE) 08/04/22 21:25 Urine Mucus Rare /HPF (NEGATIVE) 08/04/22 21:25 Ur Culture Indicated? No/not indicated 08/04/22 21:25 Stl C. diff Tox B Gene Negative (NEGATIVE) 08/06/22 21:32 Stl C. diff [id number] Presumptive negative (NEGATIVE) 08/06/22 21:32 Vancomycin Trough 21.1 ug/mL (15-20) H* 08/09/22 08:18 SARS-CoV-2 (PCR) Negative (NEGATIVE) 08/02/22 13:15 SARS CoV-2 RNA Rapid SURI Cancelled 08/02/22 13:15 Blood Type O POSITIVE 08/05/22 10:15 Antibody Screen Negative 08/05/22 10:15 Crossmatch See Detail 08/05/22 10:15 - Plan (1) Wound of left ankle Status: Acute Qualifiers: Encounter type: initial encounter Qualified Code(s): S91.002A - Unspecified open wound, left ankle, initial encounter (2) Ischemia of left lower extremity Status: Acute (3) Pleural effusion due to CHF (congestive heart failure) Status: Acute (4) Pulmonary edema Status: Acute Qualifiers: Chronicity: acute Qualified Code(s): J81.0 - Acute pulmonary edema (5) Bronchopneumonia Status: Acute
[2022-08-09] MEDS: CATAPRES TAB 0.1 MG PO PRN (12:06)
[2022-08-09] MEDS ORDERED: CATAPRES TAB 0.1 MG PO ONE (16:00)
[2022-08-09] MEDS: NORCO 5/325 MG TAB PO PRN (16:02)
--- NOTE | 2022-08-09 18:07 | DR.CONSULT ---
Consult - Consultation for Day of: Date: 08/09/22 (Dr. Newby) - Chief Complaint Chief Complaint: Abnormal LFTs - History of Present Illness History of Present Illness: Pt is a 67 y/o who is referred for abnormal LFTs. Pt has complaints of diarrhea x1-2 weeks. Patient is a poor historian, obtained history/ROS from at bedside. Denies dysphagia, dyspepsia, abdominal pain, N/V, constipation, melena, and hematochezia. Spouse reports pt had a colonoscopy and EGD 2021, at [facility] in [place]. Pt not currently on PPI/H2 chace. Pt has ischemic left foot with non- healing wounds, post-op wound debridement, procedure done 07/27/22. - Past Medical History Past Medical History: Anemia, Arthritis (Right knee), CHF, COPD, GERD, Hypertension, Hypothyroidism - Past Surgical History Surgical History: Ortho Surgery - Family History Family Medical History: Sudden Cardiac - Social History Does patient currently use any type of tobacco product: No Have you used tobacco products in the last 12 months: No Type of Tobacco Use: Cigarettes How many years tobacco product used: 25 Alcohol Use: DAILY Drug Use: None - Medications Home Medications: No Known Drug Allergies Allergy (Verified 07/23/22 21:06) CONTINUE taking the following medications aspirin 81 mg chewable tablet 81 mg PO QDAY 07/23/22 [History] cholecalciferol (vitamin D3) 125 mcg (5,000 unit) tablet (Vitamin D3) 125 mcg PO QAM 07/23/22 [History] clonidine HCl 0.1 mg tablet 1 tab PO TID PRN blood pressure 07/23/22 [History] clopidogrel 75 mg tablet 1 tab PO QDAY 07/23/22 [History] docusate sodium 100 mg capsule 1 cap PO BID 07/23/22 [History] escitalopram oxalate 10 mg tablet 1 tab PO QDAY 07/23/22 [History] ezetimibe 10 mg tablet 1 tab PO QDAY 07/23/22 [History] folic acid 1 mg tablet 1 tab PO QDAY anemia 07/23/22 [History] furosemide 20 mg tablet 20 mg PO QAM 07/23/22 [History] gabapentin 100 mg capsule 1 cap PO 6XD 07/23/22 [History] hydrocodone 5 mg-acetaminophen 325 mg tablet 1 tab PO Q6H PRN 07/23/22 [History] levothyroxine 50 mcg tablet (Synthroid) 1 tab PO QDAY 07/23/22 [History] magnesium citrate 100 mg capsule 200 mg PO QAM 07/23/22 [History] melatonin 10 mg tablet 10 mg PO HS PRN 07/23/22 [History] methocarbamol 500 mg tablet 1 tab PO TID 07/23/22 [History] metoprolol succinate 100 mg tablet,extended release 24 hr 1 tab PO QDAY 07/23/22 [History] montelukast 10 mg tablet 1 tab PO QDAY 07/23/22 [History] mupirocin 2 % topical ointment 1 ea topical BID 07/23/22 [History] pantoprazole 40 mg tablet,delayed release 1 tab PO QDAY 07/23/22 [History] polysaccharide iron complex 150 mg iron capsule 1 cap PO QDAY 07/23/22 [History] ropinirole 0.5 mg tablet 1 tab PO QDAY 07/23/22 [History] vit C 250 mg-vit E 90 mg-zinc 40 mg-copper 1 [id number] capsule (PreserVision AREDS-2) 1 cap PO QHS 07/23/22 [History] - Review of Systems Constitutional: No Symptoms Reported. denies: See HPI, Fever, Chills, Sweats, Weakness, Malaise, Other Eyes: denies: No Symptoms Reported, See HPI, Pain, Vision Change, Conjunctivae Inflammation, Eyelid Inflammation, Redness, Other ENT: No Symptoms Reported. denies: See HPI, Ear Pain, Ear Discharge, Nose Pain, Nose Discharge, Nose Congestion, Mouth Pain, Mouth Swelling, Throat Pain, Throat Swelling, Other Respiratory: Shortness of Breath. denies: See HPI, Cough, Dry, Hemoptysis, SOB with Excertion, Pleuritic Pain, Sputum, Wheezing, Other Cardiovascular: No Symptoms Reported. denies: Chest Pain, See HPI, Palpitations, Orthopnea, Paroxysmal Noc. Dyspnea, Edema, Light Headedness, Other Gastrointestinal: Diarrhea. denies: No Symptoms Reported, See HPI, Nausea, Vomiting, Abdominal Pain, Constipation, Melena, Hematochezia, Other Musculoskeletal: No Symptoms Reported. denies: See HPI, Shoulder Pain, Arm Pain, Back Pain, Hand Pain, Leg Pain, Foot Pain, Neck Pain, Other Skin: No Symptoms Reported. denies: See HPI, Rash, Lesions, Jaundice, Bruising, Wound, Ecchymosis, Other Neurological: denies: No Symptoms Reported, See HPI, Weakness, Numbness, Incoordination, Change in Speech, Confusion, Seizures, Other - Physical Exam Vital Signs: Temperature 99.8 F Pulse Rate [Left Brachial] 87 Pulse Rate [Right Brachial] 87 Pulse Rate 82 Respiratory Rate 20 Blood Pressure [Left Arm] 157/71 Blood Pressure [Right Arm] 148/76 Blood Pressure 155/63 O2 Sat by Pulse Oximetry 88 Oriented: Person, Place. negative: Normal, Time, Not Oriented, Unable to test, Other Eyes: Normal. negative: Blurred Vision, Diplopia, Discharge, Pain, Redness, Photophobia, Other Ear: negative: Normal, Right, Left, Swelling, Ecchymosis, Hemotypanum, Abrasion, Laceration Nose: negative: Normal, Injected, Discharge, Blood, Other Throat: negative: Normal, Tonsillar Hypertrophy, Red, Exudate, Dry, Other Respiratory: Diminished Throughout. negative: Clear Throughout, Rhonchi Throughout, Rales Throughout, Wheezes Throughout, RUL Clear, RML Clear, RLL Clear, PHYLLIS Clear, LML Clear, LLL Clear, RUL Diminished, RML Diminished, RLL Diminished, PHYLLIS Diminished, LML Diminished, LLL Diminished, RUL Absent, RML Absent, RLL Absent, PHYLLIS Absent, LML Absent, LLL Absent, RUL Rhonchi, RML Rhonchi, RLL Rhonchi, PHYLLIS Rhonchi, LML Rhonchi, LLL Rhonchi, RUL Insp. Wheeze, RML Insp. Wheeze, RLL Insp. Wheeze, PHYLLIS Insp.Wheeze, LML Insp.Wheeze, LLL Insp.Wheeze, RUL Exp. Wheeze, RML Exp. Wheeze, RLL Exp. Wheeze, PHYLLIS Exp. Wheeze, LML Exp. Wheeze, LLL Exp. Wheeze, RUL Rales, RML Rales, RLL Rales, PHYLLIS Rales, LML Rales, LLL Rales, RUL Rub, RML Rub, RLL Rub, PHYLLIS Rub, LML Rub, LLL Rub, RUL Squeak, RML Squeak, RLL Squeak, PHYLLIS Squeak, LML Squeak, LLL Squeak Cardiovascular: Normal. negative: Tachycardia, Bradycardia, Irregular, S3, S4, Systolic, Diastolic, Murmur, Edema, Other : Normal. negative: Dysuria, Hematuria, Frequency, Discharge, Testicular Pain, Bleeding, , Other Auscultation: Bowel Sounds: Normal. negative: Bruit, Absent, Increased, Decreased, High Pitched, Other Palpation: negative: Normal, Spleen Enlarged, Liver Enlarged, Mass Pulsatile, Other Tenderness: Normal. negative: Diffuse, RUQ, RLQ, LUQ, LLQ, Epigastric, Periumbilical, Suprapubic, Mild, Moderate, Severe, Rebound, Guarding, Rigidity, Other Skin: Normal. negative: Decreased Turgur, Rash, Papular, Macular, Maculopapular, Vesicular, Pustular, Petechial, Red, Tender, Hot, Diaphoresis, Wound, Bruising, Ecchymosis, Other Musculoskeletal: negative: Normal, Right, Left, Shoulder, Clavicle, Arm, Elbow, Forearm, Wrist, Hand, Hip, Thigh, Knee, Leg, Ankle, Foot, Back:Thoracic, Back:Jeniffer mbar, Back:Midline, Back:Paraspinous, Pelvis, Swelling, Tender, Deformity, Pulse Deficit, Motor Deficit, Sensory Deficit, Instability, Crepitance Psychiatric: Normal. negative: Anxiety, Depression, Agitation, Other Mood Description: Calm. negative: Angry, Apathetic, Depressed, Fearful, Flat, Happy, Hostile, Sad, Suspicious, Withdrawn, Anxious, Appropriate, Labile Affect: negative: Angry, Anxious, Depressed, Flat, Hysterical, Quiet, Violent, Normal Speech Pattern: Clear. negative: Appropriate, Unclear, Inappropriate, Delayed, Slurred, Excessive, Aphasic, Artificially Ventilated, Trach(not ventilated) - Plan Plan: Assessment: 1. Abnormal LFTs, thrombocytopenia, possible medication reaction, R/O cirrhosis, R/O other etiology. 2. Diarrhea. Plan: Serologic liver workup, liver US. Monitor LFTs. F/U stool studies, will check for C. Diff. Recent endoscopic workup, will F/U results. Plan D/W Dr. Newby - Allergies Allergies/Adverse Reactions: Allergies Allergy/AdvReac Type Severity Reaction Status Date / Time No Known Drug Allergies Allergy Verified 07/23/22 21:06
[2022-08-09] MEDS: ALBUMIN HUMAN 25%- 100 ML 100 ML IV SCH (21:09)
[2022-08-09] MEDS: MELATONIN PO SCH (21:11)
[2022-08-09] MEDS: COLACE CAP 100 MG PO SCH (21:12)
[2022-08-09] MEDS: SINGULAIR TAB 10 MG PO SCH (21:12)
[2022-08-09] MEDS: VANCOMYCIN IV *PREMIX 500 mg/100 ML BAG 500 MG/100 ML PIGGYBACK IV SCH (22:00)
[2022-08-10 04:10] LABS: ABG BASE EXCESS 15.4 mmol/L (-2.0-2.0)
[2022-08-10 04:11] LABS: ABG ALLEN TEST POS; ABG HCO3 43.4 mmol/L (22-26)
[2022-08-10] MEDS: NEURONTIN CAP 100 MG PO SCH ×3 (05:13→21:02)
[2022-08-10] MEDS: REQUIP PO SCH ×3 (05:13→21:01)
[2022-08-10] MEDS: ROBAXIN PO SCH ×3 (05:13→21:03)
[2022-08-10 05:41] LABS: BASOPHILS % (AUTO) 0.8 % (0.2-1.0); EOSINOPHILS # (AUTO) 0.2 x10^3/uL (0.0-0.2); EOSINOPHILS % (AUTO) 4.6 % (0.9-2.9); HEMATOCRIT 26.4 % (36.0-47.0); HEMOGLOBIN 8.7 g/dL (12.0-16.0); LYMPHOCYTES # (AUTO) 0.8 X10^3/uL (1.3-2.9); LYMPHOCYTES % (AUTO) 19.2 % (21.0-51.0); MEAN CORPUSCULAR HEMOGLOBIN 29.1 pg (27.0-34.0); MEAN CORPUSCULAR HGB CONC 32.8 g/dL (33.0-35.0); MEAN CORPUSCULAR VOLUME 88.8 fL (80.0-100.0); MEAN PLATELET VOLUME 8.3 fL (7.4-11.0); MONOCYTES # (AUTO) 0.6 x10^3/uL (0.3-0.8); MONOCYTES % (AUTO) 13.5 % (0.0-13.0); NEUTROPHILS # (AUTO) 2.7 x10^3/uL (2.2-4.8); NEUTROPHILS % (AUTO) 61.9 % (42.0-75.0); RED BLOOD COUNT 2.97 X10^6/uL (3.5-5.4); RED CELL DISTRIBUTION WIDTH 14.7 % (11.6-16.5); WHITE BLOOD COUNT 4.4 X10^3/uL (3.6-10.0)
[2022-08-10 05:52] LABS: ALANINE AMINOTRANSFERASE 10 Units/L (12-78); ALBUMIN 3.2 g/dL (3.4-5.0); ALKALINE PHOSPHATASE 142 Units/L (46-116); ASPARTATE AMINO TRANSFERASE 30 Units/L (15-37); BLOOD UREA NITROGEN 28 mg/dL (7-18); CALCIUM 9.2 mg/dL (8.5-10.1); CARBON DIOXIDE 36.7 mmol/L (21-32); CHLORIDE 101 mmol/L (98-107); COR CA(FOR HYPOALB) 9.8 mg/dL (8.5-10.1); CREATININE 1.11 mg/dL (0.55-1.02); SODIUM 144 mmol/L (136-145); TOTAL PROTEIN 6.6 g/dL (6.4-8.2); eGFR NON BLACK RACES 52 (>60)
[2022-08-10 06:05] LABS: IRON 32 ug/dL (50-175)
[2022-08-10] MEDS: SYNTHROID 125 mcg TAB PO SCH (06:09)
--- NOTE | 2022-08-10 06:31 | RAD ---
HISTORYShortness of breathSTUDYChest AP [id number] heart is mildly enlarged. No congestive heart failure is noted. The aorta is calcified. The right lung is now clear with the exception of some subsegmental atelectasis in the right base. Left-sided perihilar subsegmental atelectasis is again identified and slightly more prominent on the prior examination. No definite acute left lung infiltrates are identified. No pleural effusions are identified. Bony thorax is unremarkable.IMPRESSIONNo definite acute infiltratesRight basilar left perihilar subsegmental atelectasisElectronically signed by: DAGO BOWERS (Aug 10, 2022 06:30:01)
[2022-08-10] MEDS: DUONEB 0.5 MG/3 MG (3 mL) NEB SCH ×3 (08:25→20:45)
[2022-08-10] MEDS: PULMICORT NEB TX 0.5 MG NEB SCH ×2 (08:25→20:45)
[2022-08-10] MEDS ORDERED: LEXAPRO ONE (09:10)
[2022-08-10] MEDS ORDERED: TOPROL XL PO ONE (09:10)
[2022-08-10] MEDS: TOPROL XL PO SCH (09:13)
[2022-08-10] MEDS: VITAMIN D3 125 mcg (5,000 UNITS) PO SCH (09:13)
[2022-08-10] MEDS: ENTRESTO 24/26 MG TAB PO SCH ×2 (09:13→21:01)
[2022-08-10] MEDS: LEVAQUIN TAB 500 MG PO SCH (09:13)
[2022-08-10] MEDS: ASPIRIN EC 81 MG PO SCH (09:13)
[2022-08-10] MEDS: PROTONIX TAB 40 MG PO SCH (09:14)
[2022-08-10] MEDS: XARELTO PO SCH ×2 (09:14→21:03)
[2022-08-10] MEDS: ZETIA TAB 10 MG PO SCH (09:14)
[2022-08-10] MEDS: NU IRON PO SCH (09:14)
[2022-08-10] MEDS: LEXAPRO PO SCH (09:14)
[2022-08-10] MEDS: LASIX IVP SCH ×2 (09:14→16:13)
[2022-08-10] MEDS: FOLIC ACID TAB 1 MG PO SCH (09:14)
[2022-08-10] MEDS: VANCOMYCIN IV *PREMIX 500 mg/100 ML BAG 500 MG/100 ML PIGGYBACK IV SCH ×2 (09:24→22:00)
--- NOTE | 2022-08-10 10:19 | US ---
HISTORYELEVATED LFT'SSTUDYLIVERCOMPARISONNoneT ECHNIQUEThirty-eight images made by the petroleum products district supervisor. Soto scale and color-flow images of the right upper quadrant were obtained.FINDINGSThe liver has normal echogenicity and size. No mass or intrahepatic biliary duct dilatation is present. The intrahepatic inferior vena cava was imaged.The visualized hepatic veins are patent with blood flow toward the right atrium. The hepatic artery is patent. The portal vein is patent with blood flow toward the liver.The pancreatic head and proximal body are unremarkable. The remaining pancreas is not well identified due to overlying bowel gas.Gallbladder wall thickening is present measuring between 3 and 4 mm.Gallbladder wall thickening is a nonspecific finding. It can be see with many acute or chronic processes. The most common acute etiology is acute cholecystitis. The most common chronic etiology is chronic cholecystitis. A nuclear medicine hepatobiliary scan can help differentiate between these two etiologies. But there is no gallstone or pericholecystic fluid. No extrahepatic biliary duct dilatation; common duct is normal.The right kidney is normal in size and echogenicity. No hydronephrosis.Incidental finding includes small right pleural effusion.IMPRESSION1. Nonspecific gallbladder wall thickening2. Small right effusionElectronically signed by: Mariano Jackson (Aug 10, 2022 10:17:27)
[2022-08-10] MEDS: NYSTATIN POWDER TOP SCH ×2 (11:18→21:03)
[2022-08-10] MEDS: DIFLUCAN PO SCH (13:15)
--- NOTE | 2022-08-10 19:15 | NOTE.SOAP ---
Soap Note Note for Day of Date of Exam: 08/10/22 Subjective Data Subjective Data: S/p left leg arterial intervention for non healing wounds left leg with subsequent sharp debridement and application of skin substitute graft. Post op course complicated by pneumonia, rise in liver function test, diarrhea with diagnois of Campylobacter. Objective Data Temperature: 99.8 F Pulse Rate: 79 Respiratory Rate: 22 Blood Pressure: 145/65 O2 Sat by Pulse Oximetry: 90 Objective Data: Remains on high flow oxygen, left leg dressing in place per Podoatry, left toes warm, diarrhea improved. WBC=4.4, HgB=8.7, Cr-1.1, T.bile decreasee to 1.3 Assessment Assessment: 1) Ischemic left leg Right leg also with severe ischemia but no wounds . This will be dealt with in the near future 2) Wounds left foot - s/p debridement with skin substitute in place. Dressing being monitores by Podiatry3) Diarrhea- Camplobacter- treat with flids and observation 4) Elevared LFTS Plan Plan: Observe left leg. Podiatry to change dressings, IVF for Campylobacter and observe ( diarrhea improved ) . IV antibiotics for pneumonia and heated high flow oxygen. Liver tests seem to be improving , may have been to medications. Colten need to get back to nasal cannula before she can go to SNF.
--- NOTE | 2022-08-10 19:55 | MD.NOTE ---
Provider Note Note Note: Provider Update Note Created after extensive chart review. Will plan to see patient in the [facility]. A: -Left lower extremity wounds, nonhealing (x3) - posterior heel, dorsal foot, and lateral 5th MPJ -S/p left foot wound debridement with graft application (DOS 07-28-22) -S/p Aortogram, arteriogram left leg, atherectomy and balloon angioplasty of the left peroneal artery, drug coated balloon angioplasty left superficial femoral artery (DOS 07-26-22) -DM II with peripheral neuropathy -Peripheral arterial disease P: -Reviewed chart. I have been following along with patient's progress. Her lower extremity wounds do appear stable at this time. Initially we anticipated patient would be discharged to a SNF shortly after her procedures, however, due to several new symptoms and worsening of her overall condition she required a higher level of care for longer than initially planned. She has had multiple episodes of O2 desaturation. This was followed by a period of fevers and white count elevation, which were likely stemming from her pulmonary status. She then had new onset diarrhea and elevated LFTs of an unknown origin, which is still being evaluated. -She has not had a true fever since 08/05/22. Additionally, she has not had leukocytosis since 08/04/22. This is encouraging and would suggest effective abx regimen and sufficiently decreased bacterial burden following debridement. Given her clinical presentation at last exam and with this in mind, it would appear s he is improving from lower extremity wound prospective. Cx results as previously noted. Vanc and levo at this time, others DC'd. -She is currently in a very well padded posterior splint with adaptic, gauze, ABDs, webroll, and a lightly wrapped CHANG. This can be left in place, changes weekly per podiatry. No active drainage on the last 2 dressing changes. There is no current need to change dressings more often than this and I would actually discourage it unless there are acute changes to the left LE, as dressing changes in a hospital setting are more likely to lead to unintentional nosocomial i nfection. I did discuss this with the patient and her at my last visit, they verbalized understanding and are in agreement. -I also ordered the patient leg to be turned Q2H or with every nursing evaluation, as she is at high risk of developing decubitus ulcerations while lying in bed. This coupled with her decreased peripheral flow and sensory neuropathy is a likely to result in breakdown of her soft tissues in her distal extremities. -Reviewed her recent right foot and ankle XRs. She displays global osteopenia in the lower extremity, likely secondary to disuse, as well as mockenbergs calcifications of what appears to be her anterior and posterior tibial vessels from the distal leg down to the level of the ankle. There are also multiple small vessels which are defined in the forefoot, this is an abnormal finding and suggests not only large vessel but also small vessel disease, likely secondary to uncontrolled diabetes over an extended period of time. There is also a radiolucent line through the tibial sesamoid with distal migration of the distal fragment. It is difficult to say if this is acute, subacute, or chronic in nature. Additionally, there is a small radiolucency in the plantarproximal aspect of the cuboid noted on the lateral projection of the ankle. This may just be the angle of the image in combination with her osteopenia, as it is only seen on this one film. -In regards to her sesamoid fracture: It is unlikely to ever heal in it's current position, however, patient is not a good surgical candidate at this time. Will consider conservative treatment of offloading at this time and treat any symptoms that arise. We can consider further advanced imaging if necessary. Will evaluate further in the coming days. -Will see in the AM for further evaluation. Plan to remove dayana from grafting sites, change her dressings, and pending her clinical picture, we will likely plan to take her back for another round of grafts on her left lower extremity wounds on Saturday afternoon if she is still in the hospital then.
[2022-08-10] MEDS: ALBUMIN HUMAN 25%- 100 ML 100 ML IV SCH (21:00)
[2022-08-10] MEDS: SINGULAIR TAB 10 MG PO SCH (21:02)
[2022-08-10] MEDS: MELATONIN PO SCH (21:02)
[2022-08-10] MEDS: COLACE CAP 100 MG PO SCH (21:02)
[2022-08-10] MEDS: NORCO 5/325 MG TAB PO PRN (22:10)
[2022-08-11] MEDS: SYNTHROID 125 mcg TAB PO SCH (05:31)
[2022-08-11] MEDS: REQUIP PO SCH ×3 (05:31→21:08)
[2022-08-11] MEDS: NEURONTIN CAP 100 MG PO SCH ×3 (05:31→21:07)
[2022-08-11] MEDS: ROBAXIN PO SCH ×3 (05:32→21:09)
[2022-08-11 05:37] LABS: BASOPHILS % (AUTO) 0.8 % (0.2-1.0); EOSINOPHILS # (AUTO) 0.3 x10^3/uL (0.0-0.2); EOSINOPHILS % (AUTO) 5.3 % (0.9-2.9); HEMATOCRIT 25.6 % (36.0-47.0); HEMOGLOBIN 8.5 g/dL (12.0-16.0); LYMPHOCYTES # (AUTO) 0.9 X10^3/uL (1.3-2.9); LYMPHOCYTES % (AUTO) 17.7 % (21.0-51.0); MEAN CORPUSCULAR HEMOGLOBIN 29.4 pg (27.0-34.0); MEAN CORPUSCULAR HGB CONC 33.4 g/dL (33.0-35.0); MEAN CORPUSCULAR VOLUME 88.1 fL (80.0-100.0); MEAN PLATELET VOLUME 8.1 fL (7.4-11.0); MONOCYTES # (AUTO) 0.6 x10^3/uL (0.3-0.8); MONOCYTES % (AUTO) 11.8 % (0.0-13.0); NEUTROPHILS # (AUTO) 3.4 x10^3/uL (2.2-4.8); NEUTROPHILS % (AUTO) 64.4 % (42.0-75.0); RED CELL DISTRIBUTION WIDTH 14.8 % (11.6-16.5); WHITE BLOOD COUNT 5.3 X10^3/uL (3.6-10.0)
[2022-08-11 05:53] LABS: ALANINE AMINOTRANSFERASE 10 Units/L (12-78); ALBUMIN 3.2 g/dL (3.4-5.0); ALKALINE PHOSPHATASE 149 Units/L (46-116); ASPARTATE AMINO TRANSFERASE 31 Units/L (15-37); BLOOD UREA NITROGEN 31 mg/dL (7-18); CALCIUM 8.9 mg/dL (8.5-10.1); CARBON DIOXIDE 37.3 mmol/L (21-32); CHLORIDE 102 mmol/L (98-107); COR CA(FOR HYPOALB) 9.5 mg/dL (8.5-10.1); SODIUM 143 mmol/L (136-145); TOTAL PROTEIN 6.4 g/dL (6.4-8.2); eGFR NON BLACK RACES 59 (>60)
[2022-08-11] MEDS ORDERED: LEXAPRO ONE (08:02)
[2022-08-11] MEDS ORDERED: TOPROL XL PO ONE (08:03)
[2022-08-11] MEDS ORDERED: PHARMACY COMMENT IV ONE (08:30)
[2022-08-11] MEDS: FOLIC ACID TAB 1 MG PO SCH (08:56)
[2022-08-11] MEDS: DIFLUCAN PO SCH (08:57)
[2022-08-11] MEDS: ENTRESTO 24/26 MG TAB PO SCH ×2 (08:57→21:06)
[2022-08-11] MEDS: ZETIA TAB 10 MG PO SCH (08:57)
[2022-08-11] MEDS: NU IRON PO SCH (08:57)
[2022-08-11] MEDS: PROTONIX TAB 40 MG PO SCH (08:57)
[2022-08-11] MEDS: VITAMIN D3 125 mcg (5,000 UNITS) PO SCH (08:58)
[2022-08-11] MEDS: LEVAQUIN TAB 500 MG PO SCH (08:58)
[2022-08-11] MEDS: ASPIRIN EC 81 MG PO SCH (08:58)
[2022-08-11] MEDS: XARELTO PO SCH ×2 (08:58→21:06)
[2022-08-11] MEDS: LEXAPRO PO SCH (08:58)
[2022-08-11] MEDS: TOPROL XL PO SCH (08:59)
[2022-08-11 09:01] LABS: CREATININE 1.03 mg/dL (0.55-1.02); VANCOMYCIN,TROUGH 15.6 ug/mL (15-20)
[2022-08-11] MEDS: LASIX IVP SCH ×2 (09:01→16:27)
[2022-08-11] MEDS: NYSTATIN POWDER TOP SCH ×2 (09:06→21:09)
[2022-08-11] MEDS: PULMICORT NEB TX 0.5 MG NEB SCH ×2 (09:21→20:47)
[2022-08-11] MEDS: DUONEB 0.5 MG/3 MG (3 mL) NEB SCH ×4 (09:21→20:47)
[2022-08-11] MEDS: VANCOMYCIN IV *PREMIX 500 mg/100 ML BAG 500 MG/100 ML PIGGYBACK IV SCH ×2 (09:57→22:00)
[2022-08-11] MEDS: NORCO 5/325 MG TAB PO PRN ×3 (10:56→22:26)
--- NOTE | 2022-08-11 12:05 | NOTE.SOAP ---
Soap Note Note for Day of Date of Exam: 08/11/22 Subjective Data Subjective Data: Patient seen bedside this morning, she is lying in bed on her back with pillows propping up her lower extremities and is wearing her breathing-assistance device. Patient seen with nursing steam fitter supervisor present, discussed case with nursing team. No family members present today. Patient states she continues to get occasional pain in both of her lower extremities with the left side being more painful. She cannot locate any particular spot of pain and rather states it is "all over". She does relate that it hurts more when it is touched or moved. She denies any new trauma to the area or any new symptoms since last visit. Admits to continued shortness of breath and occasional diarrhea. Denies f,c,n,v, and cp at time of interview. Objective Data Objective Data: Posterior splint in place, appears clean dry and intact. Vasc: Popliteal pulses palpable. DP/PT pulses faintly palpable. CFT to digits is maintained at preoperative level, ~ 3 seconds. Derm: Wound on dorsum of the left foot measures approximately 4x4cm. Wound on posterior achilles tendon insertion is approxiately 4x5cm. Wound on lateral 5th MPJ is approximately 1.5x2cm. There has been no notable change in wound measurements. All areas are now fibrogranular. [place] removed today. No signs of infection, malodor, or purulence today. Lateral heel ecchymosis, as well as, a dorsal first interspace ecchymosis on the right foot - still present. Neuro: Protective and light touch sensation intact bilaterally. No focal deficits noted. MSK: LEFT: Pain on palpation of her posterior ankle, dorsal foot, and distolateral foot wounds. Able to wiggle digits and move knee through ROM without pain. RIGHT: No pain on ROM of her digits during active/passive ROM. Pain on palpation of the dorsal metatarsal heads 1-5, no point tenderness, more global forefoot pain. Able to move ankle through ROM without pain. Lachmann test negative to lesser digits. No obvious deformities or dislocations. No pain on plantar first MPJ or with ROM of hallux (R). Assessment Assessment: -Left lower extremity wounds, nonhealing (x3) - posterior heel, dorsal foot, and lateral 5th MPJ -S/p left foot wound debridement with graft application (DOS 07-28-22) -S/p Aortogram, arteriogram left leg, atherectomy and balloon angioplasty of the left peroneal artery, drug coated balloon angioplasty of left superficial femoral artery (DOS 07-26-22) -Peripheral arterial disease -Right tibial sesamoid fracture Plan Plan: -Patient evaluated and chart reviewed. I have been following along with patient's progress. Her lower extremity wounds do appear stable at this time, however they do display signs of delayed healing. -I plan to take her back for another round of grafts on her left lower extremity wounds on Saturday afternoon if she is still in the hospital then. This can be done under local anesthesia only. Regardless, NPO after midnight for Saturday. Treatment consent to be filled out prior to procedure. -Cx results as previously noted. Vanc and Levo at this time, others DC'd. -Dressings changed today by myself. She is currently in a very well-padded posterior splint with Adaptec, gauze, ABDs, web roll, and a lightly wrapped CHANG. This can be left in place, changes weekly per podiatry. No active drainage on the last 3 dressing changes. There is no current need to change dressings more often than this and I would actually discourage it unless there are acute changes to the left LE, as dressing changes in a hospital setting are more likely to lead to unintentional nosocomial infection. I did discuss this with the patient again today, she verbalized understanding and is in agreement. -Left leg to be turned Q2H or with every nursing evaluation, as she is at high risk of developing decubitus ulcerations while lying in bed. This coupled with her decreased peripheral flow is a likely to result in breakdown of her soft tissues in her distal extremities. -Right foot and ankle XRs: She displays global osteopenia in the lower extremity, likely secondary to disuse, as well as mockenbergs calcifications of what appears to be her anterior and posterior tibial vessels from the distal leg down to the level of the ankle. There are also multiple small vessels which are lightly defined in the forefoot, this is an abnormal finding. There is also a radiolucent line through the tibial sesamoid with distal migration of the distal fragment. It is difficult to say if this is acute, subacute, or chronic in nature. In regard to her sesamoid fracture: It is unlikely to ever heal in its current position, however, patient is not a good surgical candidate at this time. Will consider conservative treatment of offloading at this time and treat any symptoms that arise. Surgical shoe ordered for R foot, to be worn at all times while out of bed. -HgbA1c ordered. -Will continue to follow along with patient.
[2022-08-11] MEDS: SINGULAIR TAB 10 MG PO SCH (21:07)
[2022-08-11] MEDS: MELATONIN PO SCH (21:08)
[2022-08-11] MEDS: COLACE CAP 100 MG PO SCH (21:08)
[2022-08-11] MEDS: ALBUMIN HUMAN 25%- 100 ML 100 ML IV SCH (21:10)
--- NOTE | 2022-08-11 22:56 | NOTE.SOAP ---
Soap Note Note for Day of Date of Exam: 08/11/22 Subjective Data Subjective Data: Patient very stable. Little has changed. Still on 50 % HF O2 . Diarrhea improved. CHF improved with improving with improved but still elevated levels and CXR consistent with persistent bronchopneumonia. Wound changed by Podiatry and she is going back to OR for re- application of skin substitute grafts to the wounds left foot. T.bili has declined to near normal. Objective Data Temperature: 98.5 F Pulse Rate: 62 Respiratory Rate: 19 Blood Pressure: 144/60 O2 Sat by Pulse Oximetry: 90 Objective Data: Patient with no change in PE since yesterday. Assessment Assessment: Ischemic left leg improved, complicated by pneumonia, CHF and Campylobacter diarrhea. Plan Plan: Continue present care and to OR for Podiatry to address wounds again.
[2022-08-12] MEDS: NEURONTIN CAP 100 MG PO SCH ×3 (05:30→21:16)
[2022-08-12] MEDS: ROBAXIN PO SCH ×3 (05:30→21:18)
[2022-08-12] MEDS: REQUIP PO SCH ×3 (05:30→21:16)
[2022-08-12] MEDS: SYNTHROID 125 mcg TAB PO SCH (05:30)
[2022-08-12 05:45] LABS: BASOPHILS # (AUTO) 0.1 X10^3/uL (0.0-0.1); BASOPHILS % (AUTO) 0.9 % (0.2-1.0); EOSINOPHILS # (AUTO) 0.3 x10^3/uL (0.0-0.2); EOSINOPHILS % (AUTO) 5.4 % (0.9-2.9); HEMATOCRIT 27.1 % (36.0-47.0); LYMPHOCYTES # (AUTO) 0.9 X10^3/uL (1.3-2.9); LYMPHOCYTES % (AUTO) 14.7 % (21.0-51.0); MEAN CORPUSCULAR HEMOGLOBIN 29.5 pg (27.0-34.0); MEAN CORPUSCULAR HGB CONC 33.1 g/dL (33.0-35.0); MEAN CORPUSCULAR VOLUME 88.9 fL (80.0-100.0); MEAN PLATELET VOLUME 8.2 fL (7.4-11.0); MONOCYTES # (AUTO) 0.7 x10^3/uL (0.3-0.8); MONOCYTES % (AUTO) 11.7 % (0.0-13.0); NEUTROPHILS # (AUTO) 4.1 x10^3/uL (2.2-4.8); NEUTROPHILS % (AUTO) 67.3 % (42.0-75.0); RED BLOOD COUNT 3.05 X10^6/uL (3.5-5.4); RED CELL DISTRIBUTION WIDTH 14.6 % (11.6-16.5); WHITE BLOOD COUNT 6.1 X10^3/uL (3.6-10.0)
[2022-08-12 05:50] LABS: BLOOD UREA NITROGEN 33 mg/dL (7-18); CALCIUM 8.9 mg/dL (8.5-10.1); CARBON DIOXIDE 38.1 mmol/L (21-32); CHLORIDE 99 mmol/L (98-107); CREATININE 1.21 mg/dL (0.55-1.02); SODIUM 142 mmol/L (136-145); eGFR NON BLACK RACES 47 (>60)
[2022-08-12] MEDS ORDERED: LEXAPRO ONE (08:08)
[2022-08-12] MEDS ORDERED: TOPROL XL PO ONE (08:09)
[2022-08-12] MEDS: PULMICORT NEB TX 0.5 MG NEB SCH ×2 (08:18→20:45)
[2022-08-12] MEDS: DUONEB 0.5 MG/3 MG (3 mL) NEB SCH ×4 (08:18→20:45)
[2022-08-12] MEDS: VANCOMYCIN IV *PREMIX 500 mg/100 ML BAG 500 MG/100 ML PIGGYBACK IV SCH ×2 (09:35→22:00)
[2022-08-12] MEDS: NU IRON PO SCH (09:36)
[2022-08-12] MEDS: NORCO 5/325 MG TAB PO PRN ×3 (09:36→22:09)
[2022-08-12] MEDS: FOLIC ACID TAB 1 MG PO SCH (09:37)
[2022-08-12] MEDS: ASPIRIN EC 81 MG PO SCH (09:37)
[2022-08-12] MEDS: VITAMIN D3 125 mcg (5,000 UNITS) PO SCH (09:37)
[2022-08-12] MEDS: XARELTO PO SCH ×2 (09:37→21:16)
[2022-08-12] MEDS: LEVAQUIN TAB 500 MG PO SCH (09:37)
[2022-08-12] MEDS: DIFLUCAN PO SCH (09:38)
[2022-08-12] MEDS: LEXAPRO PO SCH (09:38)
[2022-08-12] MEDS: ZETIA TAB 10 MG PO SCH (09:38)
[2022-08-12] MEDS: PROTONIX TAB 40 MG PO SCH (09:38)
[2022-08-12] MEDS: TOPROL XL PO SCH (09:39)
[2022-08-12] MEDS: NYSTATIN POWDER TOP SCH ×2 (09:44→21:18)
[2022-08-12] MEDS: ENTRESTO 24/26 MG TAB PO SCH ×2 (09:44→21:17)
[2022-08-12] MEDS: LASIX IVP SCH ×2 (09:49→17:09)
--- NOTE | 2022-08-12 19:35 | NOTE.SOAP ---
Soap Note Note for Day of Date of Exam: 08/12/22 Subjective Data Subjective Data: No significant change except the diarrhea is now resolved Less SOB. Still on high flow heated oxygen. Objective Data Temperature: 98.6 F Pulse Rate: 76 Respiratory Rate: 24 Blood Pressure: 137/60 O2 Sat by Pulse Oximetry: 89 Objective Data: Resting comfortably. Left leg with splint in place . Assessment Assessment: Ischemic left leg with non - healing wounds s/p arterial intervention left leg, grafting of wounds with skin substitute , complicated by CHF, pneumonia, liver funtion tests elevation. Improved liver tests. Less SOB. Plan Plan: Podiatry to take to OR tomorrow to debide left leg wounds and place additional skin substitute.
[2022-08-12] MEDS: ALBUMIN HUMAN 25%- 100 ML 100 ML IV SCH (21:14)
[2022-08-12] MEDS: COLACE CAP 100 MG PO SCH (21:16)
[2022-08-12] MEDS: SINGULAIR TAB 10 MG PO SCH (21:17)
[2022-08-12] MEDS: MELATONIN PO SCH (21:17)
[2022-08-12 22:25] LABS: ALANINE AMINOTRANSFERASE 12 Units/L (12-78); ALBUMIN 3.5 g/dL (3.4-5.0); ALKALINE PHOSPHATASE 141 Units/L (46-116); ASPARTATE AMINO TRANSFERASE 29 Units/L (15-37); TOTAL PROTEIN 6.6 g/dL (6.4-8.2)
[2022-08-13 05:08] LABS: BLOOD UREA NITROGEN 37 mg/dL (7-18); CALCIUM 8.8 mg/dL (8.5-10.1); CARBON DIOXIDE 35.5 mmol/L (21-32); CHLORIDE 99 mmol/L (98-107); COR NA(FOR HYPERGLY) 139 mmol/L (136-145); CREATININE 1.26 mg/dL (0.55-1.02); SODIUM 138 mmol/L (136-145); eGFR NON BLACK RACES 45 (>60)
[2022-08-13 05:16] LABS: BASOPHILS # (AUTO) 0.1 X10^3/uL (0.0-0.1); BASOPHILS % (AUTO) 0.7 % (0.2-1.0); EOSINOPHILS # (AUTO) 0.5 x10^3/uL (0.0-0.2); EOSINOPHILS % (AUTO) 6.8 % (0.9-2.9); HEMATOCRIT 25.3 % (36.0-47.0); HEMOGLOBIN 8.4 g/dL (12.0-16.0); LYMPHOCYTES % (AUTO) 12.8 % (21.0-51.0); MEAN CORPUSCULAR HEMOGLOBIN 29.4 pg (27.0-34.0); MEAN CORPUSCULAR HGB CONC 33.3 g/dL (33.0-35.0); MEAN CORPUSCULAR VOLUME 88.3 fL (80.0-100.0); MEAN PLATELET VOLUME 8.6 fL (7.4-11.0); MONOCYTES # (AUTO) 0.9 x10^3/uL (0.3-0.8); MONOCYTES % (AUTO) 12.3 % (0.0-13.0); NEUTROPHILS % (AUTO) 67.4 % (42.0-75.0); RED BLOOD COUNT 2.86 X10^6/uL (3.5-5.4); RED CELL DISTRIBUTION WIDTH 14.6 % (11.6-16.5); WHITE BLOOD COUNT 7.5 X10^3/uL (3.6-10.0)
[2022-08-13 05:22] LABS: ALANINE AMINOTRANSFERASE 8 Units/L (12-78); ALBUMIN 3.4 g/dL (3.4-5.0); ALKALINE PHOSPHATASE 178 Units/L (46-116); ASPARTATE AMINO TRANSFERASE 37 Units/L (15-37)
[2022-08-13 05:32] LABS: TOTAL PROTEIN 6.3 g/dL (6.4-8.2)
[2022-08-13 05:38] LABS: BAND NEUTROPHILS % 3 % (0-10)
[2022-08-13 05:39] LABS: PLATELET MORPHOLOGY COMMENT ABNORMAL (NORMAL)
[2022-08-13] MEDS: ROBAXIN PO SCH ×3 (05:49→21:28)
[2022-08-13] MEDS: NEURONTIN CAP 100 MG PO SCH ×3 (05:49→21:27)
[2022-08-13] MEDS: REQUIP PO SCH ×3 (05:49→21:27)
[2022-08-13] MEDS: SYNTHROID 125 mcg TAB PO SCH (05:49)
--- NOTE | 2022-08-13 06:07 | RAD ---
HISTORYShortness of breathSTUDYChest AP [id number]/2022FINDINGSPati ent is rotated to the left. The heart remains enlarged. No definite congestive heart failure is identified. Right basilar subsegmental atelectasis is unchanged. Left perihilar subsegmental atelectasis is unchanged. No definite acute infiltrates are identified. No definite pleural effusions are identified. Bony thorax is unremarkableIMPRESSIONNo change right basilar, left perihilar subsegmental atelectasisNo change cardiomegaly without congestive heart failureElectronically signed by: DAGO BOWERS (Aug 13, 2022 06:05:30)
[2022-08-13 06:17] LABS: HEPATITIS B SURFACE ANTIGEN Negative (Negative)
[2022-08-13 06:20] LABS: ANTI-NUCLEAR ANTIBODY TEST None Detected (None Detected)
[2022-08-13] MEDS ORDERED: LEXAPRO ONE (07:46)
[2022-08-13] MEDS ORDERED: TOPROL XL PO ONE (07:47)
[2022-08-13 08:53] LABS: CREATININE 1.36 mg/dL (0.55-1.02)
[2022-08-13 08:55] LABS: VANCOMYCIN,TROUGH 21.2 ug/mL (15-20)
[2022-08-13 08:56] LABS: ABG BASE EXCESS 13.7 mmol/L (-2.0-2.0)
[2022-08-13 08:57] LABS: ABG HCO3 42.2 mmol/L (22-26)
--- NOTE | 2022-08-13 08:57 | RAD ---
HISTORYshortness of breathSTUDYCHEST x-ray, 1 VIEWCOMPARISONX-ray from previous day and 07/24/2020FINDINGSAreas of linear atelectasis are seen bilaterally. Likely slight improvement of hazy infiltrates in the lower lungs compared to prior study. There is persistent prominence of soft tissues in the left perihilar region. Borderline CHF changes persist. Possible small pleural effusions are seen, similar to prior study. No pneumothorax is seen.IMPRESSIONSlight improvement of hazy infiltrates in the lower lungs.Bilateral atelectasis persists. Recommend further evaluation with contrast enhanced CT of the chest to assure no left perihilar mass.Electronically signed by: Keron Sánchez (Aug 13, 2022 08:56:20)
[2022-08-13] MEDS: DUONEB 0.5 MG/3 MG (3 mL) NEB SCH ×4 (09:22→20:20)
[2022-08-13] MEDS: PULMICORT NEB TX 0.5 MG NEB SCH ×2 (09:22→20:20)
[2022-08-13] MEDS ORDERED: MARCAINE 0.25% INJ ONE (09:51)
[2022-08-13] MEDS ORDERED: XYLOCAINE 2 % (PLAIN) ONE (09:51)
[2022-08-13] MEDS: VANCOMYCIN IV *PREMIX 500 mg/100 ML BAG 500 MG/100 ML PIGGYBACK IV SCH (09:53)
[2022-08-13] MEDS ORDERED: BETADINE SOLN ONE (09:55)
[2022-08-13] MEDS ORDERED: NS 500 ML IV 500 ML IV ONE (09:56)
[2022-08-13] MEDS ORDERED: ANCEF VIAL 1 GRAM ONE (09:56)
[2022-08-13] MEDS ORDERED: XYLOCAINE-MPF 2% ONE (09:58)
--- NOTE | 2022-08-13 11:44 | PCM.PROG ---
Progress Note - Progress Note for Day of Date of Exam: 08/10/22 - Subjective Subjective: IS CURRENTLY BEING TREATED FOR LEFT FOOT NON-HEALING WOUND, BILATERAL PLEURAL EFFUSIONS, CHF, ANEMIA, AND SHORTNESS OF BREATH. SHE IS STATUS REVASCULARIZATION OF THE LEFT LEG AND DEBRIDEMENT OF WOUNDS TO THE LEFT LEG. SHE RECEIVED TWO UNITS OF PACKED RED BLOOD CELLS ON SATURDAY. TODAY, SHE IS ALERT AND ORIENTED, LYING IN BED ON MORNING ROUNDS. SHE CONTINUES WITH COMPLAINTS OF SHORTNESS OF BREATH AND WEAKNESS. SHE ALSO ADMITS TO REDNESS AND DISCOMFORT TO BILATERAL GROIN. SHE DID WEAR THE BIPAP THROUGHOUT THE NIGHT. SHE IS CURRENTLY ON HEATED HIGH FLOW OXYGEN WITH FI02 50%. SATURATIONS HAVE BEEN 87-92%. HER VITALS THIS MORNING ARE: 97.9-74-28-91%-129/54. LABS WERE OBTAINED. WBC 4.4, RC 2.97, HGB 8.7, HCT 25.6, PLT COUNT 108, SODIUM 143, POTASSIUM 4.1, CHLORIDE 102, CARBON DIOXIDE 37.3, BUN 31, CREATININE 1.00, GLUCOSE 109, CALCIUM 8.9, TOTAL BILI 1.10, AST 31, ALT 10, ALK PHOS 149, TOTAL PROTEIN 6.4, ALBUMIN 3.2. 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 SPUTUM CULTURE IS POSITIVE FOR STENOTROPHOMONAS MALTOPHILIA AND JESSY ALBICANS. A CHEST XRAY WAS OBTAINED TODAY AND REVEALED: No definite acute infiltrates. Right basilar left perihilar subsegmental atelectasis. A LIVER ULTRASOUND WAS OBTAINED AND REVEALED: 1. Nonspecific gallbladder wall thickening 2. Small right effusion. SHE IS CURRENTLY RECEIVING VANCOMYCIN 750MG IV Q12H, LEVAQUIN 500MG PO DAILY, ALBUMIN 2 5% IV DAILY, DIFLUCAN 100MG PO DAILY, DUONEBS QID, PULMICORT NEBS BID, LASIX 40MG IV BID, DILAUDID 1MG IV Q4H PRN, ATIVAN 0.5MG PO BID, ECOTRIN 81MG PO DAILY, CATAPRES 0.1MG PO BID PRN, COLACE 100MG PO HX, LEXAPRO 10MG PO DAILY, ZETIA 10MG PO DAILY, FOLIC ACID 1MG PO DAILY, NEURONTIN 200MG PO TID, SYNTHROID 125MCG PO DAILY, MELATONIN 10MG PO HS, ROBAXIN 500MG PO TID, TOPROL XL 100MG PO DAILY, SINGULAIR 10MG PO HS, PERCOCET 5/325MG PO Q6H PRN, PROTONIX 40MG PO DAILY, XARELTO 2.5MG PO BID, REQUIP 0.25MG PO TID, LOMOTIL 1 TAB QID. WE WILL ADD NYSTATIN POWDER TO GROIN BID. OTHERWISE, WE WILL CONTINUE WITH CURRENT PLAN OF CARE TODAY. WILL CONTINUE TO MONITOR WOUNDS TO FOOT. WE WILL FOLLOW- UP WITH AM LABS AND CONTINUE TO MONITOR. TIME SPENT ON CLINICAL ASSESSMENT, REVIWING LABS AND IMAGING, DECISION MAKING, AND DOCUMENTATION GREATER THAN 45 MINUTES. - Past Medical Family Social History Past Med/Fam/Surg Hx: No changes since H&P Allergies: Allergies No Known Drug Allergies Allergy (Verified 07/23/22 21:06) - Review of Systems ROS: No change since H&P - Vital Signs and I&O's Vital Signs: Temperature 99.1 F Pulse Rate [Left Brachial] 78 Pulse Rate [Right Brachial] 74 Pulse Rate 66 Respiratory Rate 22 Blood Pressure [Left Arm] 152/66 Blood Pressure [Right Arm] 151/68 Blood Pressure 94/46 O2 Sat by Pulse Oximetry 98 Intake and Output: Intake & Output 08/10/22 08/11/22 08/12/22 08/13/22 11:59 11:59 11:59 11:59 Intake Total 1378 / 1378 1266 / 1266 1923 / 1923 1250 / 1250 Output Total 2210 / 2210 1250 / 1250 1775 / 1775 1430 / 1430 Balance -832 / -832 16 / 16 148 / 148 -180 / -180 - Physical Exam Oriented: Person, Place Eyes: Normal Ear: Normal Nose: Normal Throat: Normal Respiratory: Generalized, Diminished Cardiovascular: Normal : Normal Auscultation: Bowel Sounds: Normal Palpation: Normal Tenderness: Normal. negative: Diffuse, RUQ, RLQ, LUQ, LLQ, Epigastric, Periumbilical, Suprapubic, Mild, Moderate, Severe, Rebound, Guarding, Rigidity, Other Skin: Wound (LEFT FOOT) Musculoskeletal: Left, Foot, Tender Psychiatric: Normal Mood Description: Calm Affect: Normal Speech Pattern: Clear, Appropriate - Laboratory and Diagnostics Result Diagrams: 08/13/22 04:12 08/13/22 08:20 Labs: 08/09/22 12:05 Stool Stool Culture - Preliminary 08/09/22 12:05 Stool - Final 07/31/22 09:00 Sputum - Expectorated Sputum Sputum Culture - Final Stenotrophomonas Maltophilia Jessy Albicans 07/31/22 09:00 Sputum - Expectorated Sputum - Final 07/27/22 15:30 Foot - Left Wound Gram Stain - Final 07/27/22 15:30 Foot - Left Wound Culture - Final Methicillin Resis Staph Aureus 07/27/22 15:30 Foot - Left Wound Gram Stain - Final 07/27/22 15:30 Foot - Left Wound Culture - Final Laboratory WBC 7.5 X10^3/uL (3.6-10.0) 08/13/22 04:12 RBC 2.86 X10^6/uL (3.5-5.4) L 08/13/22 04:12 Hgb 8.4 g/dL (12.0-16.0) L 08/13/22 04:12 Hct 25.3 % (36.0-47.0) L 08/13/22 04:12 MCV 88.3 fL (80.0-100.0) 08/13/22 04:12 MCH 29.4 pg (27.0-34.0) 08/13/22 04:12 MCHC 33.3 g/dL (33.0-35.0) 08/13/22 04:12 RDW 14.6 % (11.6-16.5) 08/13/22 04:12 Plt Count 144 X10^3/uL (150.0-450.0) L 08/13/22 04:12 Plt Count Comment Decreased (ADEQUATE) A 08/13/22 04:12 MPV 8.6 fL (7.4-11.0) 08/13/22 04:12 Neut % (Auto) 67.4 % (42.0-75.0) 08/13/22 04:12 Lymph % (Auto) 12.8 % (21.0-51.0) L 08/13/22 04:12 Cass % (Auto) 12.3 % (0.0-13.0) 08/13/22 04:12 Eos % (Auto) 6.8 % (0.9-2.9) H 08/13/22 04:12 Baso % (Auto) 0.7 % (0.2-1.0) 08/13/22 04:12 Neut # (Auto) 5.0 x10^3/uL (2.2-4.8) H 08/13/22 04:12 Lymph # (Auto) 1.0 X10^3/uL (1.3-2.9) L 08/13/22 04:12 Cass # (Auto) 0.9 x10^3/uL (0.3-0.8) H 08/13/22 04:12 Eos # (Auto) 0.5 x10^3/uL (0.0-0.2) H 08/13/22 04:12 Baso # (Auto) 0.1 X10^3/uL (0.0-0.1) 08/13/22 04:12 Absolute Nucleated RBC 0.1 /100WBC 08/13/22 04:12 Total Counted 100 08/13/22 04:12 Neutrophils % (Manual) 59 % (39-76) 08/13/22 04:12 Band Neutrophils % 3 % (0-10) 08/13/22 04:12 Lymphocytes % (Manual) 17 % (13-43) 08/13/22 04:12 Monocytes % (Manual) 13 % (4-9) H 08/13/22 04:12 Eosinophils % (Manual) 8 % (0-6) H 08/13/22 04:12 Metamyelocytes % 4 07/30/22 05:32 Plt Clumps, EDTA Rare 08/13/22 04:12 Plt Morphology Comment Abnormal (NORMAL) A 08/13/22 04:12 RBC Morphology Normal (NORMAL) 08/13/22 04:12 PT 15.8 SECONDS (11.8-14.3) 07/24/22 05:32 INR Target Range - 07/24/22 05:32 INR 1.31 (0.8-1.3) H 07/24/22 05:32 APTT 29.2 SECONDS (22.9-36.5) 07/24/22 05:32 PTT Comment - 07/24/22 05:32 Sample Site Rbra 08/13/22 08:55 ABG pH 7.370 (7.35-7.45) 08/13/22 08:55 ABG pCO2 73.0 mmHg (35.0-45.0) H* 08/13/22 08:55 ABG pO2 57.0 mmHg (80.0-100.0) L 08/13/22 08:55 ABG HCO3 42.2 mmol/L (22-26) H* 08/13/22 08:55 ABG O2 Saturation 88.0 % (90-100) L 08/13/22 08:55 ABG Base Excess 13.7 mmol/L (-2.0-2.0) H 08/13/22 08:55 Lenard Test N/a 08/13/22 08:55 A-a Gradient 280.0 mmHg 08/13/22 08:55 FiO2 60.0 08/13/22 08:55 Blood Gas Comments Pt pool well ms/eb 08/13/22 08:55 Sodium 138 mmol/L (136-145) 08/13/22 04:12 Corrected Sodium 139 mmol/L (136-145) 08/13/22 04:12 Potassium 4.4 mmol/L (3.5-5.1) 08/13/22 04:12 Chloride 99 mmol/L (98-107) 08/13/22 04:12 Carbon Dioxide 35.5 mmol/L (21-32) H 08/13/22 04:12 BUN 37 mg/dL (7-18) H 08/13/22 04:12 Creatinine 1.36 mg/dL (0.55-1.02) H 08/13/22 08:20 Est GFR (MDRD) Af Amer 54 (>60) L 08/13/22 04:12 Est GFR (MDRD) Non-Af 45 (>60) L 08/13/22 04:12 Glucose 122 mg/dL (65-99) H 08/13/22 04:12 POC Glucose (mg/dL) 148 mg/dL (65-99) H 07/27/22 08:37 Hemoglobin A1c 6.2 % 08/11/22 05:06 Calcium 8.8 mg/dL (8.5-10.1) 08/13/22 04:12 Corrected Calcium TNP 08/13/22 04:12 Iron 32 ug/dL (50-175) L 08/10/22 05:16 Transferrin 154 mg/dL (202-364) L 08/10/22 05:16 Ferritin 260 ng/mL (8-252) H 08/10/22 05:16 Total Bilirubin 1.00 mg/dL (0.2-1.0) 08/13/22 04:12 AST 37 Units/L (15-37) 08/13/22 04:12 ALT 8 Units/L (12-78) L 08/13/22 04:12 Alkaline Phosphatase 178 Units/L (46-116) H 08/13/22 04:12 B-Natriuretic Peptide 454 pg/mL (0-79) H 08/10/22 05:16 Total Protein 6.3 g/dL (6.4-8.2) L 08/13/22 04:12 Albumin 3.4 g/dL (3.4-5.0) 08/13/22 04:12 Globulin 2.9 g/dL (2.5-4.5) 08/13/22 04:12 Albumin/Globulin Ratio 1.2 Ratio (1.1-2.1) 08/13/22 04:12 Vqgmz-5-Pjowxozmldx 222 mg/dL (90-200) H 08/10/22 05:16 Ceruloplasmin 23 mg/dL (16-45) 08/10/22 05:16 Vitamin B12 1013 pg/mL (193-986) H 08/05/22 05:16 Folate > 20.0 ng/mL (>8.6) 08/05/22 05:16 Specimen Type Catherized urine 08/04/22 21:25 Urine Color [place] (YELLOW) 08/04/22 21:25 Urine Appearance Clear (CLEAR) 08/04/22 21:25 Urine pH Cancelled 08/04/22 21:25 Ur Specific [place] Cancelled 08/04/22 21:25 Urine Protein Cancelled 08/04/22 21:25 Urine Glucose (UA) Cancelled 08/04/22 21:25 Urine Ketones Cancelled 08/04/22 21:25 Urine Blood Cancelled 08/04/22 21:25 Urine Nitrite Cancelled 08/04/22 21:25 Urine Bilirubin Cancelled 08/04/22 21:25 Urine Urobilinogen Cancelled 08/04/22 21:25 Ur Leukocyte Esterase Cancelled 08/04/22 21:25 Urine RBC 3-5 /HPF (0-3) A 08/04/22 21:25 Urine WBC 0-2 /HPF (0-5) 08/04/22 21:25 Ur Squamous Epith Cells Rare /HPF (NEGATIVE) 08/04/22 21:25 Calcium Oxalate Crystal Rare /HPF (NEGATIVE) 07/31/22 11:05 Urine Bacteria Negative /HPF (NEGATIVE) 08/04/22 21:25 Hyaline Casts Rare /LPF (NEGATIVE) 08/04/22 21:25 Urine Mucus Rare /HPF (NEGATIVE) 08/04/22 21:25 Ur Culture Indicated? No/not indicated 08/04/22 21:25 Stl C. diff Tox B Gene Negative (NEGATIVE) 08/06/22 21:32 Stl C. diff [id number] Presumptive negative (NEGATIVE) 08/06/22 21:32 Vancomycin Trough 21.2 ug/mL (15-20) H* 08/13/22 08:20 Copper 83.3 ug/dL (80.0-155.0) 08/10/22 05:16 MICHAEL Screen None detected (None Detected) 08/10/22 05:16 MICHAEL Titer TNP 08/10/22 05:16 MICHAEL Pattern TNP 08/10/22 05:16 Sm ([place]) Antibody 0 AU/mL (0-40) 08/10/22 05:16 Anti-Mitochondrial Ab 5.0 Units (0.0-24.9) 08/10/22 05:16 SARS-CoV-2 (PCR) Negative (NEGATIVE) 08/02/22 13:15 Hepatitis A IgM Ab Negative (Negative) 08/10/22 05:16 Hep Bs Antigen Negative (Negative) 08/10/22 05:16 Hep Bs Ag Confirmation TNP 08/10/22 05:16 Hep B Core IgM Ab Negative (Negative) 08/10/22 05:16 Hepatitis C Ab Index <0.02 IV 08/10/22 05:16 Hepatitis C Interp Negative (Negative) 08/10/22 05:16 Hepatitis Interpret See note 08/10/22 05:16 SARS CoV-2 RNA Rapid SURI Cancelled 08/02/22 13:15 Blood Type O POSITIVE 08/05/22 10:15 Antibody Screen Negative 08/05/22 10:15 Crossmatch See Detail 08/05/22 10:15 - Plan (1) Wound of left ankle Status: Acute Qualifiers: Encounter type: initial encounter Qualified Code(s): S91.002A - Unspecified open wound, left ankle, initial encounter (2) Ischemia of left lower extremity Status: Acute (3) Pleural effusion due to CHF (congestive heart failure) Status: Acute (4) Pulmonary edema Status: Acute Qualifiers: Chronicity: acute Qualified Code(s): J81.0 - Acute pulmonary edema (5) Bronchopneumonia Status: Acute
--- NOTE | 2022-08-13 12:06 | DR.OPNOTE ---
OP NOTE Pre-Op Diagnosis: Shown below Post-Op Diagnosis: Shown below Procedure Date Date Of Procedure: 08/13/22 Procedure: Preoperative Diagnoses 1. Posterior heel wound, left - 4x5x0.2cm 2. Dorsal midfoot wound, left, - 4x3x0.2cm 3. Lateral fifth metatarsal wound, left, - 2x2x0.4cm 4. Peripheral arterial disease 5. Delayed healing of left lower extremity wounds 6. Left Ankle Equines contracture Postoperative Diagnoses 1. Same as above. Procedures: 1. Excisional debridement of posterior heel wound, down to Achilles' tendon 2. Excisional debridement of dorsal midfoot wound, down to extensor tendons 3. Excisional debridement of lateral forefoot wound, down to the level of the capsule of the fifth metatarsophalangeal joint capsule 4. Application of Integra bilayer graft (x3 sites) 5. Application of wound vacuum (x3 sites) 6. Posterior splint of the left ankle Indications: This is a 67 year old female who presented to Dr. Woodrow Scott's clinic with left lower extremity wounds caused by a below knee cast following an ankle fracture that was treated non-operatively at an outside practice. Patient was then determined to have poor peripheral flow and was referred to see a vascular surgeon, Dr Guido Lim, for further work up and intervention. She underwent revascularization of the left lower extremity on July 26 and was admitted to [facility] afterwards. Our service did then see her and she underwent left lower extremity wound debridement with a Kerasis graft and wound vacuum application with posterior splinting two days later. Following her podiatric procedure she has had a decline in her overall health which included oxygen desaturation, likely linked to her then undiagnosed congestive heart failure, as well as, post operative atelectasis. In addition to this, she has had multiple bouts of diarrhea, as well as elevated liver enzymes. The internal medicine and GI teams were consulted and is currently treating the above. Additionally, patient has been receiving IV antibiotics since her admission and is currently on vancomycin and levofloxacin. This did play a role today, as I did not take cultures because she has been on antibiotics for an extended period of time and would affect their results. With regards to her left lower extremity, she has a wound located on the posterior heel which is down to the level of the Achilles tendon, a dorsal midfoot wound which is down to the level of the extensor tendons, and a lateral forefoot wound which is down to the level of the fifth MPJ capsule. Wound measurements are 4x5 cm, 4x3 cm, and 2x2 cm, respectively. The wound beds are fibrogranular and have a moderate amount of slough present. No clinical signs of infection present. There is no drainage at any of the wounds today. The lateral fifth MPJ wound does have a well adhered eschar at the distal aspect of the wound. No wounds probe to bone at this time. She also has non palpable pulses at the dorsalis Ricks posterior tibial arteries of the left foot. She also has sluggish capillary refill time to all of her digits and distal extremity. She is currently pre-diabetic, but does display early signs of sensory neuropathy and the distal extremity. She also has an equines contracture of the left ankle which reduces to neutral with knee flexion. With all of this in mind she was consented today for a debridement of her left lower extremity wounds with removal of all non-viable soft tissue and bone, graft application, application of wound vacuum, and application of posterior splint. I did discuss the treatment, complications, as well as the likely prognosis with both the patient and her . I did caution them that the wounds do display signs of delayed healing secondary to her peripheral arterial disease and could potentially go on to gangrene, may not heal, or may require some form of amputation. No guarantees were given. Details of the procedure: After satisfactory pre-op evaluation the patient was brought back to the operat ing room with her BIPAP machine and respiratory therapy present. She was then placed on the hospital cart in the supine position. A standard timeout was held and all in the room were in agreement. 20 cc's of a 0.25% Marcaine plain and 2% lidocaine plain in a 50/50 mixture was utilized in a v-block fashion proximal to all three wounds under aseptic conditions. Once adequate anesthesia was achieved the patient was transferred into the lateral decubitus position with her right side facing down. Special attention was made to adequately pad all of her bony prominences. No tourniquet was used. The left lower extremity was then prepped with Betadine and draped in a sterile fashion then the foot was lowered onto the operative field. Attention was then directed to the left posterior heel where the ulceration was noted and measured approximately 4x5x0.2cm and was down to the level of the Achilles tendon. I then utilized a 15 blade and curette to sharply transect the edges of the wound and sharply excise all of the non-viable tissue present within the wound bed back to healthy, bleeding, viable tissue. Next, attention was directed to the dorsal midfoot wound which measured approximately 4x3x0.2 cm and was down to the level of the extensor tendon. I again utilized a number 15 blade and curette to sharply excise all non-viable tissue down to the level of the extensor tendon and to transect the wound edges back to healthy, bleeding, viable tissue. Next, attention was directed to the lateral forefoot wound which measured approximately 2x2x0.4 cm and was down to the level of the fifth m etatarsal phalangeal joint capsule. Again, I used a number 15 blade and curette to sharply excise all the non-viable tissue in the wound bed and to freshen up the edges. Once all three wound sites were adequately debrided down to the level of healthy, bleeding, viable tissue I then copiously irrigated all three areas with Prontosan. Next, I prepared the two Integra bilayer graphs on the back table and cut them to size to fit onto the wounds. I started with the posterior heel wound and placed the graft in good apposition to the wound bed with the silicone layer facing superficially. I then held it in place with dayana around the periphery. This process was again repeated for the dorsal midfoot and lateral forefoot wounds. After the grafts were applied there was a small amount of grafting material left on the back table, so I scraped off the collagen layer from the graft and applied this remaining portion to the lateral fifth mpj wound. With the grafts now in place I then turn my attention to placing the wound vacuum. Three adequately size pieces of black granufoam were cut out and placed over each wound and then held in place with the provided tegaderm dressings. I then connected all three wounds together via a bridging technique. This was then hooked up to the provided I wound vac and tested. A good seal was maintained, so I then turn my attention to the application of dressing and splint. A soft, sterile dressing was then applied utilizing 4x4 gauze, webroll, kerlex, OCL splint and an michael over the top. While applying this dressing I did pay extra close attention to pad it very well and to ensure that it was not tight. The patient tolerated the procedure and anesthesia well and was transferred back to her room on the floor with vital signs stable at her preoperative levels and vascular status maintained at her preoperative level to the left lower extremity. Type of Anesthesia: Local (20cc of 50/50 mixture 0.25% Marcaine and 2% Lidocaine plain) Anesthesia Comment: Patient on BIPAP throughout case. O2 saturation levels remained at her preoperative levels throughout the case - low 90s to upper 80s Findings: No clinical signs of infection, pus, or purulence present during today's procedure. Posterior heel wound does have small amounts of Achilles tendon fibers present in wound bed prior to debridement. Dorsal midfoot wound does have areas of retinaculum and extensor tendon present in wound bed prior to debridement. Lateral forefoot wound does have fifth metatarsophalangeal joint capsule present in wound bed, this was not resected as I do not want to violate the joint capsule. No wounds probe to bone on today's exam. Peripheral bloodflow is improved from prior procedure, but is still decreased severely from normal. Decreased, but likely adequate, bloodflow was noted upon debridement of skin, subcutaneous tissue, and muscle. Specimen/Pathology: None Type of Fluids Used:: Normal Saline EBL: 10cc Drains/Tubes Comment: Wound vacuum (KCI) placed with black granufoam dressing to all wounds Hardware: Integra Bilayer Meshed Graft (2x2in) x2, [place], Black Granufoam Wound Vac Dressing (KCI) Cultures: None - Patient has been on bed bug exterminator broad spectrum antibiotics for 3 weeks. Cultures at this point wound not be useful. Complications:: None Needle/Sponge Count:: Correct Disposition/Condition: Pt. tolerated anesthesia and the procedure well and without difficulty. Patient was then returned to room on the floor following procedure.
--- NOTE | 2022-08-13 12:39 | PCM.PROG ---
Progress Note - Progress Note for Day of Date of Exam: 08/13/22 - Subjective Subjective: IS CURRENTLY BEING TREATED FOR LEFT FOOT NON-HEALING WOUND, BILATERAL PLEURAL EFFUSIONS, CHF, ANEMIA, AND SHORTNESS OF BREATH. SHE IS STATUS REVASCULARIZATION OF THE LEFT LEG AND DEBRIDEMENT OF WOUNDS TO THE LEFT LEG. SHE HAS RECEIVED TWO UNITS OF PACKED RED BLOOD CELLS SINCE ADMISSION. TODAY, SHE IS ALERT AND ORIENTED, LYING IN BED ON MORNING ROUNDS. SHE CONTINUES WITH COMPLAINTS OF SHORTNESS OF BREATH AND WEAKNESS. SHE DOES REPORT SLIGHT IMPROVEMENT IN SHORTNESS OF BREATH, ALTHOUGH, WE HAVE BEEN UNABLE TO DECREASE FI02 WITHOUT SATURATIONS DROPPING. SHE DID WEAR THE BIPAP THROUGHOUT THE NIGHT AND CONTINUES TO WEAR IT THIS MORNING. HER VITALS THIS MORNING ARE: 99.1-78-20-90%-152/66. LABS WERE OBTAINED. WBC 7.5, RBC 2.86, HGB 8.4, HCT 25.3, PLT COUNT 144, SODIUM 138, CHLORIDE 99, BUN 37, CREATININE 1.26, GLUCOSE 122, CALCIUM 8.8, TOTAL BILI 1.00, AST 37, ALT 8, ALK PHOS 173, TOTAL PROTEIN 6.3, ALBUMIN 3.4. 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 SPUTUM CULTURE IS P OSITIVE FOR STENOTROPHOMONAS MALTOPHILIA AND JESSY ALBICANS. A CHEST XRAY WAS OBTAINED TODAY AND REVEALED: Slight improvement of hazy infiltrates in the lower lungs. Bilateral atelectasis persists. Recommend further evaluation with contrast enhanced CT of the chest to assure no left perihilar mass. SHE IS CURRENTLY RECEIVING VANCOMYCIN 750MG IV Q12H, LEVAQUIN 500MG PO DAILY, ALBUMIN 25% IV DAILY, DIFLUCAN 100MG PO DAILY, DUONEBS QID, PULMICORT NEBS BID, LASIX 40MG IV BID, DILAUDID 1MG IV Q4H PRN, ATIVAN 0.5MG PO BID, ECOTRIN 81MG PO DAILY, CATAPRES 0.1MG PO BID PRN, COLACE 100MG PO HX, LEXAPRO 10MG PO DAILY, ZETIA 10MG PO DAILY, FOLIC ACID 1MG PO DAILY, NEURONTIN 200MG PO TID, SYNTHROID 125MCG PO DAILY, MELATONIN 10MG PO HS, ROBAXIN 500MG PO TID, TOPROL XL 100MG PO DAILY, SINGULAIR 10MG PO HS, PERCOCET 5/325MG PO Q6H PRN, PROTONIX 40MG PO DAILY, XARELTO 2.5MG PO BID, REQUIP 0.25MG PO TID, LOMOTIL 1 TAB QID, NYSTATIN POWDER TO GROIN BID. SHE IS SCHEDULED FOR FURTHER DEBRIDEMENT OF LEFT LEG WOUNDS TODAY BY PODIATRY. OTHERWISE, WE WILL CONTINUE WITH CURRENT PLAN OF CARE TODAY. WE WILL FOLLOW-UP WITH AM LABS AND CONTINUE TO MONITOR. TIME SPENT ON CLINICAL ASSESSMENT, REVIWING LABS AND IMAGING, DECISION MAKING, AND DOCUMENTATION GREATER THAN 45 MINUTES. - Past Medical Family Social History Past Med/Fam/Surg Hx: No changes since H&P Allergies: Allergies No Known Drug Allergies Allergy (Verified 07/23/22 21:06) - Review of Systems ROS: No change since H&P - Vital Signs and I&O's Vital Signs: Temperature 99.1 F Pulse Rate [Left Brachial] 78 Pulse Rate [Right Brachial] 74 Pulse Rate 66 Respiratory Rate 22 Blood Pressure [Left Arm] 152/66 Blood Pressure [Right Arm] 151/68 Blood Pressure 94/46 O2 Sat by Pulse Oximetry 98 Intake and Output: Intake & Output 08/11/22 08/12/22 08/13/22 08/14/22 11:59 11:59 11:59 11:59 Intake Total 1266 / 1266 1923 / 1923 1250 / 1250 Output Total 1250 / 1250 1775 / 1775 1430 / 1430 Balance 148 / 148 -180 / -180 - Physical Exam Oriented: Person, Place Eyes: Normal Ear: Normal Nose: Normal Throat: Normal Respiratory: Generalized, Diminished Cardiovascular: Normal : Normal Auscultation: Bowel Sounds: Normal Palpation: Normal Tenderness: Normal. negative: Diffuse, RUQ, RLQ, LUQ, LLQ, Epigastric, Periumbilical, Suprapubic, Mild, Moderate, Severe, Rebound, Guarding, Rigidity, Other Skin: Wound (LEFT FOOT) Musculoskeletal: Left, Foot, Tender Psychiatric: Normal Mood Description: Calm Affect: Normal Speech Pattern: Clear, Appropriate - Laboratory and Diagnostics Result Diagrams: 08/13/22 04:12 08/13/22 08:20 Labs: 08/09/22 12:05 Stool Stool Culture - Preliminary 08/09/22 12:05 Stool - Final 07/31/22 09:00 Sputum - Expectorated Sputum Sputum Culture - Final Stenotrophomonas Maltophilia Jessy Albicans 07/31/22 09:00 Sputum - Expectorated Sputum - Final 07/27/22 15:30 Foot - Left Wound Gram Stain - Final 07/27/22 15:30 Foot - Left Wound Culture - Final Methicillin Resis Staph Aureus 07/27/22 15:30 Foot - Left Wound Gram Stain - Final 07/27/22 15:30 Foot - Left Wound Culture - Final Laboratory WBC 7.5 X10^3/uL (3.6-10.0) 08/13/22 04:12 RBC 2.86 X10^6/uL (3.5-5.4) L 08/13/22 04:12 Hgb 8.4 g/dL (12.0-16.0) L 08/13/22 04:12 Hct 25.3 % (36.0-47.0) L 08/13/22 04:12 MCV 88.3 fL (80.0-100.0) 08/13/22 04:12 MCH 29.4 pg (27.0-34.0) 08/13/22 04:12 MCHC 33.3 g/dL (33.0-35.0) 08/13/22 04:12 RDW 14.6 % (11.6-16.5) 08/13/22 04:12 Plt Count 144 X10^3/uL (150.0-450.0) L 08/13/22 04:12 Plt Count Comment Decreased (ADEQUATE) A 08/13/22 04:12 MPV 8.6 fL (7.4-11.0) 08/13/22 04:12 Neut % (Auto) 67.4 % (42.0-75.0) 08/13/22 04:12 Lymph % (Auto) 12.8 % (21.0-51.0) L 08/13/22 04:12 [place] % (Auto) 12.3 % (0.0-13.0) 08/13/22 04:12 Eos % (Auto) 6.8 % (0.9-2.9) H 08/13/22 04:12 Baso % (Auto) 0.7 % (0.2-1.0) 08/13/22 04:12 Neut # (Auto) 5.0 x10^3/uL (2.2-4.8) H 08/13/22 04:12 Lymph # (Auto) 1.0 X10^3/uL (1.3-2.9) L 08/13/22 04:12 [place] # (Auto) 0.9 x10^3/uL (0.3-0.8) H 08/13/22 04:12 Eos # (Auto) 0.5 x10^3/uL (0.0-0.2) H 08/13/22 04:12 Baso # (Auto) 0.1 X10^3/uL (0.0-0.1) 08/13/22 04:12 Absolute Nucleated RBC 0.1 /100WBC 08/13/22 04:12 Total Counted 100 08/13/22 04:12 Neutrophils % (Manual) 59 % (39-76) 08/13/22 04:12 Band Neutrophils % 3 % (0-10) 08/13/22 04:12 Lymphocytes % (Manual) 17 % (13-43) 08/13/22 04:12 Monocytes % (Manual) 13 % (4-9) H 08/13/22 04:12 Eosinophils % (Manual) 8 % (0-6) H 08/13/22 04:12 Metamyelocytes % 4 07/30/22 05:32 Plt Clumps, EDTA Rare 08/13/22 04:12 Plt Morphology Comment Abnormal (NORMAL) A 08/13/22 04:12 RBC Morphology Normal (NORMAL) 08/13/22 04:12 PT 15.8 SECONDS (11.8-14.3) 07/24/22 05:32 INR Target Range - 07/24/22 05:32 INR 1.31 (0.8-1.3) H 07/24/22 05:32 APTT 29.2 SECONDS (22.9-36.5) 07/24/22 05:32 PTT Comment - 07/24/22 05:32 Sample Site Rbrach 08/13/22 08:55 ABG pH 7.370 (7.35-7.45) 08/13/22 08:55 ABG pCO2 73.0 mmHg (35.0-45.0) H* 08/13/22 08:55 ABG pO2 57.0 mmHg (80.0-100.0) L 08/13/22 08:55 ABG HCO3 42.2 mmol/L (22-26) H* 08/13/22 08:55 ABG O2 Saturation 88.0 % (90-100) L 08/13/22 08:55 ABG Base Excess 13.7 mmol/L (-2.0-2.0) H 08/13/22 08:55 Lenard Test N/a 08/13/22 08:55 A-a Gradient 280.0 mmHg 08/13/22 08:55 FiO2 60.0 08/13/22 08:55 Blood Gas Comments Pt pool well ms/eb 08/13/22 08:55 Sodium 138 mmol/L (136-145) 08/13/22 04:12 Corrected Sodium 139 mmol/L (136-145) 08/13/22 04:12 Potassium 4.4 mmol/L (3.5-5.1) 08/13/22 04:12 Chloride 99 mmol/L (98-107) 08/13/22 04:12 Carbon Dioxide 35.5 mmol/L (21-32) H 08/13/22 04:12 BUN 37 mg/dL (7-18) H 08/13/22 04:12 Creatinine 1.36 mg/dL (0.55-1.02) H 08/13/22 08:20 Est GFR (MDRD) Af Amer 54 (>60) L 08/13/22 04:12 Est GFR (MDRD) Non-Af 45 (>60) L 08/13/22 04:12 Glucose 122 mg/dL (65-99) H 08/13/22 04:12 POC Glucose (mg/dL) 148 mg/dL (65-99) H 07/27/22 08:37 Hemoglobin A1c 6.2 % 08/11/22 05:06 Calcium 8.8 mg/dL (8.5-10.1) 08/13/22 04:12 Corrected Calcium TNP 08/13/22 04:12 Iron 32 ug/dL (50-175) L 08/10/22 05:16 Transferrin 154 mg/dL (202-364) L 08/10/22 05:16 Ferritin 260 ng/mL (8-252) H 08/10/22 05:16 Total Bilirubin 1.00 mg/dL (0.2-1.0) 08/13/22 04:12 AST 37 Units/L (15-37) 08/13/22 04:12 ALT 8 Units/L (12-78) L 08/13/22 04:12 Alkaline Phosphatase 178 Units/L (46-116) H 08/13/22 04:12 B-Natriuretic Peptide 454 pg/mL (0-79) H 08/10/22 05:16 Total Protein 6.3 g/dL (6.4-8.2) L 08/13/22 04:12 Albumin 3.4 g/dL (3.4-5.0) 08/13/22 04:12 Globulin 2.9 g/dL (2.5-4.5) 08/13/22 04:12 Albumin/Globulin Ratio 1.2 Ratio (1.1-2.1) 08/13/22 04:12 Prealbumin 9.0 mg/dL (18-35.7) L 08/13/22 04:12 Eqext-3-Vtkouzbuxsb 222 mg/dL (90-200) H 08/10/22 05:16 Ceruloplasmin 23 mg/dL (16-45) 08/10/22 05:16 Vitamin B12 1013 pg/mL (193-986) H 08/05/22 05:16 Folate > 20.0 ng/mL (>8.6) 08/05/22 05:16 Specimen Type Catherized urine 08/04/22 21:25 Urine Color [place] (YELLOW) 08/04/22 21:25 Urine Appearance Clear (CLEAR) 08/04/22 21:25 Urine pH Cancelled 08/04/22 21:25 Ur Specific [place] Cancelled 08/04/22 21:25 Urine Protein Cancelled 08/04/22 21:25 Urine Glucose (UA) Cancelled 08/04/22 21:25 Urine Ketones Cancelled 08/04/22 21:25 Urine Blood Cancelled 08/04/22 21:25 Urine Nitrite Cancelled 08/04/22 21:25 Urine Bilirubin Cancelled 08/04/22 21:25 Urine Urobilinogen Cancelled 08/04/22 21:25 Ur Leukocyte Esterase Cancelled 08/04/22 21:25 Urine RBC 3-5 /HPF (0-3) A 08/04/22 21:25 Urine WBC 0-2 /HPF (0-5) 08/04/22 21:25 Ur Squamous Epith Cells Rare /HPF (NEGATIVE) 08/04/22 21:25 Calcium Oxalate Crystal Rare /HPF (NEGATIVE) 07/31/22 11:05 Urine Bacteria Negative /HPF (NEGATIVE) 08/04/22 21:25 Hyaline Casts Rare /LPF (NEGATIVE) 08/04/22 21:25 Urine Mucus Rare /HPF (NEGATIVE) 08/04/22 21:25 Ur Culture Indicated? No/not indicated 08/04/22 21:25 Stl C. diff Tox B Gene Negative (NEGATIVE) 08/06/22 21:32 Stl C. diff [id number] Presumptive negative (NEGATIVE) 08/06/22 21:32 Vancomycin Trough 21.2 ug/mL (15-20) H* 08/13/22 08:20 Copper 83.3 ug/dL (80.0-155.0) 08/10/22 05:16 MICHAEL Screen None detected (None Detected) 08/10/22 05:16 MICHAEL Titer TNP 08/10/22 05:16 MICHAEL Pattern TNP 08/10/22 05:16 Sm (Novoa) Antibody 0 AU/mL (0-40) 08/10/22 05:16 Anti-Mitochondrial Ab 5.0 Units (0.0-24.9) 08/10/22 05:16 SARS-CoV-2 (PCR) Negative (NEGATIVE) 08/02/22 13:15 Hepatitis A IgM Ab Negative (Negative) 08/10/22 05:16 Hep Bs Antigen Negative (Negative) 08/10/22 05:16 Hep Bs Ag Confirmation TNP 08/10/22 05:16 Hep B Core IgM Ab Negative (Negative) 08/10/22 05:16 Hepatitis C Ab Index <0.02 IV 08/10/22 05:16 Hepatitis C Interp Negative (Negative) 08/10/22 05:16 Hepatitis Interpret See note 08/10/22 05:16 SARS CoV-2 RNA Rapid SURI Cancelled 08/02/22 13:15 Blood Type O POSITIVE 08/05/22 10:15 Antibody Screen Negative 08/05/22 10:15 Crossmatch See Detail 08/05/22 10:15 - Plan (1) Wound of left ankle Status: Acute Qualifiers: Encounter type: initial encounter Qualified Code(s): S91.002A - Unspecified open wound, left ankle, initial encounter (2) Ischemia of left lower extremity Status: Acute (3) Pleural effusion due to CHF (congestive heart failure) Status: Acute (4) Pulmonary edema Status: Acute Qualifiers: Chronicity: acute Qualified Code(s): J81.0 - Acute pulmonary edema (5) Bronchopneumonia Status: Acute
[2022-08-13] MEDS: ASPIRIN EC 81 MG PO SCH ×2 (12:48→13:18)
[2022-08-13] MEDS: TOPROL XL PO SCH (12:48)
[2022-08-13] MEDS: DIFLUCAN PO SCH ×2 (12:49→13:19)
[2022-08-13] MEDS: ENTRESTO 24/26 MG TAB PO SCH ×3 (12:49→21:26)
[2022-08-13] MEDS: FOLIC ACID TAB 1 MG PO SCH ×2 (12:49→13:18)
[2022-08-13] MEDS: LEXAPRO PO SCH ×2 (12:50→13:20)
[2022-08-13] MEDS: LASIX IVP SCH ×2 (12:50→16:04)
[2022-08-13] MEDS: LEVAQUIN TAB 500 MG PO SCH ×2 (12:50→13:19)
[2022-08-13] MEDS: PROTONIX TAB 40 MG PO SCH ×2 (12:51→13:19)
[2022-08-13] MEDS: VITAMIN D3 125 mcg (5,000 UNITS) PO SCH ×2 (12:51→13:18)
[2022-08-13] MEDS: NYSTATIN POWDER TOP SCH ×2 (12:51→21:38)
[2022-08-13] MEDS: NU IRON PO SCH ×2 (12:51→13:18)
[2022-08-13] MEDS: XARELTO PO SCH ×2 (12:52→21:26)
[2022-08-13] MEDS: ZETIA TAB 10 MG PO SCH ×2 (12:52→13:18)
[2022-08-13] MEDS: NORCO 5/325 MG TAB PO PRN ×2 (16:04→22:52)
--- NOTE | 2022-08-13 18:18 | NOTE.SOAP ---
Soap Note Note for Day of Date of Exam: 08/13/22 Subjective Data Subjective Data: Mandy appears subjectively better with her breathing but remains on 50 % FIO2 by high flow means. Had bebridement of left foot wounds and they are improving and had brisk bleeding , s/p revascularizartion. Skin substitutes re- applied. Objective Data Temperature: 98.4 F Pulse Rate: 75 Respiratory Rate: 20 Blood Pressure: 132/55 O2 Sat by Pulse Oximetry: 93 Objective Data: Wounds as noted above, splint in place left foot. CXR is improved but CT recommended to r/o hilar mass. Assessment Assessment: Ischemic left leg with non - healing wounds - improved, CHF- improved but Creatinine is up a bit to 1.36 , on Entresto, Pneumonia- CXR improving , Diarrhea secondary to Campylobacter - resolved Plan Plan: Continue present care . Patient will not be ready for discharge until we can wean her Oxygen down.CT of chest.
[2022-08-13] MEDS: MELATONIN PO SCH (21:26)
[2022-08-13] MEDS: SINGULAIR TAB 10 MG PO SCH (21:27)
[2022-08-13] MEDS: COLACE CAP 100 MG PO SCH (21:27)
[2022-08-13] MEDS: JUVEN PO SCH (21:39)
[2022-08-13] MEDS: ALBUMIN HUMAN 25%- 100 ML 100 ML IV SCH (21:59)
[2022-08-14] MEDS: NEURONTIN CAP 100 MG PO SCH ×3 (05:13→21:49)
[2022-08-14] MEDS: ROBAXIN PO SCH ×3 (05:14→21:50)
[2022-08-14] MEDS: REQUIP PO SCH ×3 (05:14→21:50)
[2022-08-14] MEDS: SYNTHROID 125 mcg TAB PO SCH (05:31)
[2022-08-14 06:25] LABS: BASOPHILS % (AUTO) 0.7 % (0.2-1.0); EOSINOPHILS # (AUTO) 0.3 x10^3/uL (0.0-0.2); EOSINOPHILS % (AUTO) 5.6 % (0.9-2.9); HEMATOCRIT 24.2 % (36.0-47.0); HEMOGLOBIN 8.2 g/dL (12.0-16.0); LYMPHOCYTES # (AUTO) 0.7 X10^3/uL (1.3-2.9); LYMPHOCYTES % (AUTO) 14.5 % (21.0-51.0); MEAN CORPUSCULAR HEMOGLOBIN 29.9 pg (27.0-34.0); MEAN CORPUSCULAR HGB CONC 33.7 g/dL (33.0-35.0); MEAN CORPUSCULAR VOLUME 88.9 fL (80.0-100.0); MONOCYTES # (AUTO) 0.7 x10^3/uL (0.3-0.8); NEUTROPHILS # (AUTO) 3.4 x10^3/uL (2.2-4.8); NEUTROPHILS % (AUTO) 66.2 % (42.0-75.0); RED BLOOD COUNT 2.73 X10^6/uL (3.5-5.4); RED CELL DISTRIBUTION WIDTH 14.6 % (11.6-16.5); WHITE BLOOD COUNT 5.2 X10^3/uL (3.6-10.0)
--- NOTE | 2022-08-14 06:31 | RAD ---
HISTORYShortness of breathSTUDYChest AP itriapalUWYNOOMTCH81/31/2022FINDINGSThe heart is upper limits normal in size. No definite congestive heart failure is identified. Right basilar subsegmental atelectasis is identified. Major of the right lung is clear. Persistent left perihilar subsegmental atelectasis is present. There is increased density in the left hilum possibly due to the perihilar atelectasis. Correlation with the patient's upcoming chest CT is recommended. Remainder of the lung shi appear clear. No definite pleural effusions are identified. Bony thorax is unremarkable.IMPRESSIONNo change right basilar, left perihilar subsegmental atelectasisIncreasing density in the left hilum possibly due to perihilar subsegmental atelectasis. Correlation with the patient's upcoming chest CT is recommendedCardiomegaly without congestive heart failureElectronically signed by: DAGO BOWERS (Aug 14, 2022 06:29:04)
[2022-08-14 06:41] LABS: ALANINE AMINOTRANSFERASE 7 Units/L (12-78); ALBUMIN 3.5 g/dL (3.4-5.0); ALKALINE PHOSPHATASE 176 Units/L (46-116); BLOOD UREA NITROGEN 37 mg/dL (7-18); CALCIUM 9.4 mg/dL (8.5-10.1); CARBON DIOXIDE 38.4 mmol/L (21-32); CHLORIDE 101 mmol/L (98-107); CREATININE 1.09 mg/dL (0.55-1.02); SODIUM 143 mmol/L (136-145); TOTAL PROTEIN 3.9 g/dL (6.4-8.2); eGFR NON BLACK RACES 53 (>60)
[2022-08-14 07:07] LABS: ASPARTATE AMINO TRANSFERASE 32 Units/L (15-37)
[2022-08-14] MEDS ORDERED: LEXAPRO ONE (08:41)
[2022-08-14] MEDS ORDERED: TOPROL XL PO ONE (08:41)
[2022-08-14] MEDS: VANCOMYCIN IV *PREMIX 750 mg/150 ML BAG 750 MG/150 ML PIGGYBACK IV SCH (09:06)
[2022-08-14] MEDS: VITAMIN D3 125 mcg (5,000 UNITS) PO SCH (09:07)
[2022-08-14] MEDS: NU IRON PO SCH (09:07)
[2022-08-14] MEDS: DIFLUCAN PO SCH (09:07)
[2022-08-14] MEDS: PROTONIX TAB 40 MG PO SCH (09:07)
[2022-08-14] MEDS: XARELTO PO SCH ×2 (09:07→21:50)
[2022-08-14] MEDS: ZETIA TAB 10 MG PO SCH (09:07)
[2022-08-14] MEDS: ASPIRIN EC 81 MG PO SCH (09:07)
[2022-08-14] MEDS: ENTRESTO 24/26 MG TAB PO SCH ×2 (09:07→21:50)
[2022-08-14] MEDS: TOPROL XL PO SCH (09:08)
[2022-08-14] MEDS: FOLIC ACID TAB 1 MG PO SCH (09:09)
[2022-08-14] MEDS: LEXAPRO PO SCH (09:09)
[2022-08-14] MEDS: NYSTATIN POWDER TOP SCH ×2 (09:09→21:51)
[2022-08-14] MEDS: LEVAQUIN TAB 500 MG PO SCH (09:09)
--- NOTE | 2022-08-14 09:09 | CT ---
HISTORYHypoxia, shortness of breathSTUDYCT chest with contrastTechnique: Axial post-contrast images with coronal and sagittal reformats. Dose reduction procedures were used with mA/kv adjusted for body size.COMPARISONNoneFINDINGSExamination of the mediastinum demonstrated no evidence for mediastinal masses, enlarged mediastinal or enlarged hilar adenopathy or significant aortic abnormality. No hilar masses are identified. The prominent left hilum visible on routine chest x-rays due to a prominent left main pulmonary artery. Bilateral pleural small effusions are present right greater than left. Those portions of the upper abdominal organs visualized were within normal limits with the exception of partially visualized splenomegaly and a single bubble of gas within the hepatic parenchyma the precise location of which and significance of which is unclear. It does not have the appearance of portal venous gas. There is a compression fracture of T12 age indeterminate. Examination of the lung shi demonstrated some atelectatic changes in the lung bases underlying the pleural effusions right greater than left. No definite acute alveolar infiltrates or areas of consolidation are identified. Subsegmental atelectasis is present in the right lung base and left perihilar regions. No significant nodules, masses, bronchiectasis, or peribronchial thickening is identified.IMPRESSIONNo evidence for left hilar mass. The prominent left hilum on plain chest x-ray is due to a prominent left main pulmonary arteryBilateral small to moderate pleural effusions right greater than left with some bibasilar atelectatic changes in the lower lobes underlying the pleural effusionsNo definite acute alveolar infiltrates or areas of consolidationRight basilar and left perihilar subsegmental atelectasisPartially visualized splenomegalyCompression fracture T12, age indeterminateSingle bubble of gas within the hepatic parenchyma near the hilum of the liver the significance of which is unclear. It does not have the appearance of portal venous gas.Electronically signed by: DAGO BOWERS (Aug 14, 2022 09:07:09)
[2022-08-14] MEDS: NORCO 5/325 MG TAB PO PRN (09:22)
[2022-08-14] MEDS: PULMICORT NEB TX 0.5 MG NEB SCH ×2 (09:30→21:52)
[2022-08-14] MEDS: DUONEB 0.5 MG/3 MG (3 mL) NEB SCH ×4 (09:30→21:52)
[2022-08-14] MEDS: LASIX IVP SCH ×2 (10:25→17:34)
[2022-08-14] MEDS: JUVEN PO SCH (10:25)
[2022-08-14] MEDS: MUCOMYST 20% 200 MG/ML NEB SCH ×4 (10:26→21:52)
--- NOTE | 2022-08-14 11:44 | PCM.PROG ---
Progress Note - Progress Note for Day of Date of Exam: 08/14/22 - Subjective Subjective: IS CURRENTLY BEING TREATED FOR LEFT FOOT NON-HEALING WOUND, BILATERAL PLEURAL EFFUSIONS, CHF, ANEMIA, AND SHORTNESS OF BREATH. SHE IS STATUS REVASCULARIZATION OF THE LEFT LEG AND DEBRIDEMENT OF WOUNDS TO THE LEFT LEG. SHE HAD FURTHER DEBRIDEMENT OF WOUNDS YESTERDAY AND A WOUND VAC WAS PLACED. SHE HAS RECEIVED TWO UNITS OF PACKED RED BLOOD CELLS SINCE ADMISSION. TODAY, SHE IS ALERT AND ORIENTED, LYING IN BED ON MORNING ROUNDS. SHE CONTINUES WITH COMPLAINTS OF SHORTNESS OF BREATH, WEAKNESS, AND COUGH. SHE REPORTS COUGHING UP CLOTS OF BLOOD THIS MORNING. WE HAVE BEEN UNABLE TO DECREASE FI02 WITHOUT SATURATIONS DROPPING. SHE DID WEAR THE BIPAP THROUGHOUT THE NIGHT BUT IS ON HEATED HIGH FLOW OXYGEN THIS MORNING. FI02 IS AT 65%. HER VITALS THIS MORNING ARE: 98.1-93-20-90%-161/67. LABS WERE OBTAINED. WBC 5.2, RBC 2.73, HGB 8.2, HCT 24.2, PLT COUNT 135, SODIUM 143, POTASSIUM 4.5, CHLORIDE 101, CARBON DIOXIDE 38.4, BUN 37, CHLORIDE 1.09, CALCIUM 9.4, TOTAL BILI 1.00, AST 32, ALT 7, ALK PHOS 176, BNP 855, TOTAL PROTEIN 3.9. 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 SPUTUM CULTURE IS POSITIVE FOR STENOTROPHOMONAS MALTOPHILIA AND JESSY ALBICANS. A CHEST CT WITH CONTRAST WAS OBTAINED AND REVEALED: No evidence for left hilar mass. The prominent left hilum on plain chest x-ray is due to a prominent left main pulmonary artery. Bilateral small to moderate pleural effusions right greater than left with some bibasilar atelectatic changes in the lower lobes underlying the pleural effusions. No definite acute alveolar infiltrates or areas of consolidation. Right basilar and left perihilar subsegmental atelectasis. Partially visualized splenomegaly. Compression fracture T12, age indeterminate. Single bubble of gas within the hepatic parenchyma near the hilum of the liver the significance of which is unclear. It does not have the appearance of portal venous gas. SHE IS CURRENTLY RECEIVING VANCOMYCIN 750MG IV Q12H, LEVAQUIN 500MG PO DAILY, ALBUMIN 25% IV DAILY, DIFLUC AN 100MG PO DAILY, DUONEBS QID, PULMICORT NEBS BID, LASIX 40MG IV BID, DILAUDID 1MG IV Q4H PRN, ATIVAN 0.5MG PO BID, ECOTRIN 81MG PO DAILY, CATAPRES 0.1MG PO BID PRN, COLACE 100MG PO HX, LEXAPRO 10MG PO DAILY, ZETIA 10MG PO DAILY, FOLIC ACID 1MG PO DAILY, NEURONTIN 200MG PO TID, SYNTHROID 125MCG PO DAILY, MELATONIN 10MG PO HS, ROBAXIN 500MG PO TID, TOPROL XL 100MG PO DAILY, SINGULAIR 10MG PO HS, PERCOCET 5/325MG PO Q6H PRN, PROTONIX 40MG PO DAILY, XARELTO 2.5MG PO BID, REQUIP 0.25MG PO TID, LOMOTIL 1 TAB QID, NYSTATIN POWDER TO GROIN BID. TODAY, WE WILL ADD MUCOMYST TO NEB TX, INCREASE PULMICORT TX, ADD THEOPHYLLINE 200MG DAILY, AND ORDER THE SMARTVEST TO BE UTILIZED. OTHERWISE, WE WILL CONTINUE WITH CURRENT PLAN OF CARE TODAY. WE WILL FOLLOW-UP WITH AM LABS AND CONTINUE TO MONITOR. TIME SPENT ON CLINICAL ASSESSMENT, REVIWING LABS AND IMAGING, DECISION MAKING, AND DOCUMENTATION GREATER THAN 45 MINUTES. - Past Medical Family Social History Past Med/Fam/Surg Hx: No changes since H&P Allergies: Allergies No Known Drug Allergies Allergy (Verified 07/23/22 21:06) - Review of Systems ROS: No change since H&P - Vital Signs and I&O's Vital Signs: Temperature 98.1 F Pulse Rate [Left Brachial] 76 Pulse Rate [Right Brachial] 93 Pulse Rate 103 Respiratory Rate 20 Blood Pressure [Left Arm] 161/67 Blood Pressure [Right Arm] 151/68 Blood Pressure 132/55 O2 Sat by Pulse Oximetry 93 Intake and Output: Intake & Output 08/11/22 08/12/22 08/13/22 08/14/22 11:59 11:59 11:59 11:59 Intake Total 1266 / 1266 1923 / 1923 1250 / 1250 810 / 810 Output Total 1250 / 1250 1775 / 1775 1430 / 1430 1500 / 1500 Balance 148 / 148 -180 / -180 -690 / -690 - Physical Exam Oriented: Person, Place Eyes: Normal Ear: Normal Nose: Normal Throat: Normal Respiratory: Generalized, Diminished Cardiovascular: Normal : Normal Auscultation: Bowel Sounds: Normal Palpation: Normal Tenderness: Normal. negative: Diffuse, RUQ, RLQ, LUQ, LLQ, Epigastric, Periumbilical, Suprapubic, Mild, Moderate, Severe, Rebound, Guarding, Rigidity, Other Skin: Wound (LEFT FOOT) Musculoskeletal: Left, Foot, Tender Psychiatric: Normal Mood Description: Calm Affect: Normal Speech Pattern: Clear, Appropriate - Laboratory and Diagnostics Result Diagrams: 08/14/22 05:41 08/14/22 05:41 Labs: 08/09/22 12:05 Stool Stool Culture - Preliminary 08/09/22 12:05 Stool - Final 07/31/22 09:00 Sputum - Expectorated Sputum Sputum Culture - Final Stenotrophomonas Maltophilia Jessy Albicans 07/31/22 09:00 Sputum - Expectorated Sputum - Final 07/27/22 15:30 Foot - Left Wound Gram Stain - Final 07/27/22 15:30 Foot - Left Wound Culture - Final Methicillin Resis Staph Aureus 07/27/22 15:30 Foot - Left Wound Gram Stain - Final 07/27/22 15:30 Foot - Left Wound Culture - Final Laboratory WBC 5.2 X10^3/uL (3.6-10.0) 08/14/22 05:41 RBC 2.73 X10^6/uL (3.5-5.4) L 08/14/22 05:41 Hgb 8.2 g/dL (12.0-16.0) L 08/14/22 05:41 Hct 24.2 % (36.0-47.0) L 08/14/22 05:41 MCV 88.9 fL (80.0-100.0) 08/14/22 05:41 MCH 29.9 pg (27.0-34.0) 08/14/22 05:41 MCHC 33.7 g/dL (33.0-35.0) 08/14/22 05:41 RDW 14.6 % (11.6-16.5) 08/14/22 05:41 Plt Count 135 X10^3/uL (150.0-450.0) L 08/14/22 05:41 Plt Count Comment Decreased (ADEQUATE) A 08/13/22 04:12 MPV 8.0 fL (7.4-11.0) 08/14/22 05:41 Neut % (Auto) 66.2 % (42.0-75.0) 08/14/22 05:41 Lymph % (Auto) 14.5 % (21.0-51.0) L 08/14/22 05:41 Prentiss % (Auto) 13.0 % (0.0-13.0) 08/14/22 05:41 Eos % (Auto) 5.6 % (0.9-2.9) H 08/14/22 05:41 Baso % (Auto) 0.7 % (0.2-1.0) 08/14/22 05:41 Neut # (Auto) 3.4 x10^3/uL (2.2-4.8) 08/14/22 05:41 Lymph # (Auto) 0.7 X10^3/uL (1.3-2.9) L 08/14/22 05:41 Prentiss # (Auto) 0.7 x10^3/uL (0.3-0.8) 08/14/22 05:41 Eos # (Auto) 0.3 x10^3/uL (0.0-0.2) H 08/14/22 05:41 Baso # (Auto) 0.0 X10^3/uL (0.0-0.1) 08/14/22 05:41 Absolute Nucleated RBC 0.0 /100WBC 08/14/22 05:41 Total Counted 100 08/13/22 04:12 Neutrophils % (Manual) 59 % (39-76) 08/13/22 04:12 Band Neutrophils % 3 % (0-10) 08/13/22 04:12 Lymphocytes % (Manual) 17 % (13-43) 08/13/22 04:12 Monocytes % (Manual) 13 % (4-9) H 08/13/22 04:12 Eosinophils % (Manual) 8 % (0-6) H 08/13/22 04:12 Metamyelocytes % 4 07/30/22 05:32 Plt Clumps, EDTA Rare 08/13/22 04:12 Plt Morphology Comment Abnormal (NORMAL) A 08/13/22 04:12 RBC Morphology Normal (NORMAL) 08/13/22 04:12 PT 15.8 SECONDS (11.8-14.3) 07/24/22 05:32 INR Target Range - 07/24/22 05:32 INR 1.31 (0.8-1.3) H 07/24/22 05:32 APTT 29.2 SECONDS (22.9-36.5) 07/24/22 05:32 PTT Comment - 07/24/22 05:32 [facility] 08/13[facility] 08:55 ABG pH 7.370 (7.35-7.45) 08/13/22 08:55 ABG pCO2 73.0 mmHg (35.0-45.0) H* 08/13/22 08:55 ABG pO2 57.0 mmHg (80.0-100.0) L 08/13/22 08:55 ABG HCO3 42.2 mmol/L (22-26) H* 08/13/22 08:55 ABG O2 Saturation 88.0 % (90-100) L 08/13/22 08:55 ABG Base Excess 13.7 mmol/L (-2.0-2.0) H 08/13/22 08:55 Lenard Test N/a 08/13/22 08:55 A-a Gradient 280.0 mmHg 08/13/22 08:55 FiO2 60.0 08/13/22 08:55 Blood Gas Comments Pt pool well ms/eb 08/13/22 08:55 Sodium 143 mmol/L (136-145) 08/14/22 05:41 Corrected Sodium TNP 08/14/22 05:41 Potassium 4.5 mmol/L (3.5-5.1) 08/14/22 05:41 Chloride 101 mmol/L (98-107) 08/14/22 05:41 Carbon Dioxide 38.4 mmol/L (21-32) H 08/14/22 05:41 BUN 37 mg/dL (7-18) H 08/14/22 05:41 Creatinine 1.09 mg/dL (0.55-1.02) H 08/14/22 05:41 Est GFR (MDRD) Af Amer > 60 (>60) 08/14/22 05:41 Est GFR (MDRD) Non-Af 53 (>60) L 08/14/22 05:41 Glucose 102 mg/dL (65-99) H 08/14/22 05:41 POC Glucose (mg/dL) 148 mg/dL (65-99) H 07/27/22 08:37 Hemoglobin A1c 6.2 % 08/11/22 05:06 Calcium 9.4 mg/dL (8.5-10.1) 08/14/22 05:41 Corrected Calcium TNP 08/14/22 05:41 Iron 32 ug/dL (50-175) L 08/10/22 05:16 Transferrin 154 mg/dL (202-364) L 08/10/22 05:16 Ferritin 260 ng/mL (8-252) H 08/10/22 05:16 Total Bilirubin 1.00 mg/dL (0.2-1.0) 08/14/22 05:41 AST 32 Units/L (15-37) 08/14/22 05:41 ALT 7 Units/L (12-78) L 08/14/22 05:41 Alkaline Phosphatase 176 Units/L (46-116) H 08/14/22 05:41 B-Natriuretic Peptide 855 pg/mL (0-79) H* 08/14/22 05:41 Total Protein 3.9 g/dL (6.4-8.2) L 08/14/22 05:41 Albumin 3.5 g/dL (3.4-5.0) 08/14/22 05:41 Globulin 0.4 g/dL (2.5-4.5) L 08/14/22 05:41 Albumin/Globulin Ratio 8.8 Ratio (1.1-2.1) H 08/14/22 05:41 Prealbumin 9.0 mg/dL (18-35.7) L 08/13/22 04:12 [id number] 222 mg/dL (90-200) H 08/10/22 05:16 Ceruloplasmin 23 mg/dL (16-45) 08/10/22 05:16 Vitamin B12 1013 pg/mL (193-986) H 08/05/22 05:16 Folate > 20.0 ng/mL (>8.6) 08/05/22 05:16 Specimen Type Catherized urine 08/04/22 21:25 Urine Color [place] (YELLOW) 08/04/22 21:25 Urine Appearance Clear (CLEAR) 08/04/22 21:25 Urine pH Cancelled 08/04/22 21:25 Ur Specific [place] Cancelled 08/04/22 21:25 Urine Protein Cancelled 08/04/22 21:25 Urine Glucose (UA) Cancelled 08/04/22 21:25 Urine Ketones Cancelled 08/04/22 21:25 Urine Blood Cancelled 08/04/22 21:25 Urine Nitrite Cancelled 08/04/22 21:25 Urine Bilirubin Cancelled 08/04/22 21:25 Urine Urobilinogen Cancelled 08/04/22 21:25 Ur Leukocyte Esterase Cancelled 08/04/22 21:25 Urine RBC 3-5 /HPF (0-3) A 08/04/22 21:25 Urine WBC 0-2 /HPF (0-5) 08/04/22 21:25 Ur Squamous Epith Cells Rare /HPF (NEGATIVE) 08/04/22 21:25 Calcium Oxalate Crystal Rare /HPF (NEGATIVE) 07/31/22 11:05 Urine Bacteria Negative /HPF (NEGATIVE) 08/04/22 21:25 Hyaline Casts Rare /LPF (NEGATIVE) 08/04/22 21:25 Urine Mucus Rare /HPF (NEGATIVE) 08/04/22 21:25 Ur Culture Indicated? No/not indicated 08/04/22 21:25 Stl C. diff Tox B Gene Negative (NEGATIVE) 08/06/22 21:32 Stl C. diff [id number] Presumptive negative (NEGATIVE) 08/06/22 21:32 Vancomycin Trough 21.2 ug/mL (15-20) H* 08/13/22 08:20 Copper 83.3 ug/dL (80.0-155.0) 08/10/22 05:16 MICHAEL Screen None detected (None Detected) 08/10/22 05:16 MICHAEL Titer TNP 08/10/22 05:16 MICHAEL Pattern TNP 08/10/22 05:16 Sm (Novoa) Antibody 0 AU/mL (0-40) 08/10/22 05:16 Anti-Mitochondrial Ab 5.0 Units (0.0-24.9) 08/10/22 05:16 SARS-CoV-2 (PCR) Negative (NEGATIVE) 08/02/22 13:15 Hepatitis A IgM Ab Negative (Negative) 08/10/22 05:16 Hep Bs Antigen Negative (Negative) 08/10/22 05:16 Hep Bs Ag Confirmation TNP 08/10/22 05:16 Hep B Core IgM Ab Negative (Negative) 08/10/22 05:16 Hepatitis C Ab Index <0.02 IV 08/10/22 05:16 Hepatitis C Interp Negative (Negative) 08/10/22 05:16 Hepatitis Interpret See note 08/10/22 05:16 SARS CoV-2 RNA Rapid SURI Cancelled 08/02/22 13:15 Blood Type O POSITIVE 08/05/22 10:15 Antibody Screen Negative 08/05/22 10:15 Crossmatch See Detail 08/05/22 10:15 - Plan (1) Wound of left ankle Status: Acute Qualifiers: Encounter type: initial encounter Qualified Code(s): S91.002A - Unspecified open wound, left ankle, initial encounter (2) Ischemia of left lower extremity Status: Acute (3) Pleural effusion due to CHF (congestive heart failure) Status: Acute (4) Pulmonary edema Status: Acute Qualifiers: Chronicity: acute Qualified Code(s): J81.0 - Acute pulmonary edema (5) Bronchopneumonia Status: Acute
[2022-08-14] MEDS: THEO-24 CAP 200 MG (24-HR) PO SCH (13:43)
--- NOTE | 2022-08-14 17:57 | NOTE.SOAP ---
Soap Note Note for Day of Date of Exam: 08/14/22 Subjective Data Subjective Data: S/P arterial intervention of the left leg and skin substitute applied. Complicated by CHF, pneumonia, diarrhea Objective Data Temperature: 98.2 F Pulse Rate: 77 Respiratory Rate: 24 Blood Pressure: 125/60 O2 Sat by Pulse Oximetry: 90 Objective Data: Patient without complaint. Splint of left foot. CT of chest- no hilar mass, no obvious infiltrate, atelectasis of both lungs, b/l small pleural effusions. BNP increased to 853. Assessment Assessment: Ischemic left leg s/p intervention, wounds left foot and ankle improving. CHF improving clinically but not with objective findings of BNP. Chest CT , no hilar mass, no obvious infiltrates . Still on high flow oxygen. Plan Plan: Continue treatment of heart failure and lung problems . Lungs need to improve before she can be discharged to SNF.
[2022-08-14] MEDS: SINGULAIR TAB 10 MG PO SCH (21:50)
[2022-08-14] MEDS: MELATONIN PO SCH (21:50)
[2022-08-14] MEDS: COLACE CAP 100 MG PO SCH (21:50)
[2022-08-14] MEDS: ALBUMIN HUMAN 25%- 100 ML 100 ML IV SCH (21:55)
[2022-08-15 05:28] LABS: ABG BASE EXCESS 16.3 mmol/L (-2.0-2.0)
[2022-08-15 05:29] LABS: ABG ALLEN TEST POS; ABG HCO3 43.5 mmol/L (22-26)
[2022-08-15] MEDS: SYNTHROID 125 mcg TAB PO SCH (05:49)
[2022-08-15] MEDS: REQUIP PO SCH ×3 (05:49→21:06)
[2022-08-15] MEDS: NEURONTIN CAP 100 MG PO SCH ×3 (05:50→21:07)
[2022-08-15] MEDS: ROBAXIN PO SCH ×3 (05:50→21:11)
--- NOTE | 2022-08-15 06:22 | RAD ---
HISTORYSOB Relevant Clinical InformationSTUDYCHEST, 1 [id number] trachea is midline. The cardiac silhouette is unremarkable. Right basilar and left perihilar atelectasis or infiltrates unchanged. No pneumothorax.. The bony thorax is unremarkable.IMPRESSIONStable portable chest.Electronically signed by: Adarsh Alanis (Aug 15, 2022 06:20:16)
[2022-08-15 06:37] LABS: BASOPHILS # (AUTO) 0.1 X10^3/uL (0.0-0.1); BASOPHILS % (AUTO) 0.7 % (0.2-1.0); EOSINOPHILS # (AUTO) 0.4 x10^3/uL (0.0-0.2); HEMATOCRIT 24.9 % (36.0-47.0); HEMOGLOBIN 8.5 g/dL (12.0-16.0); LYMPHOCYTES # (AUTO) 0.8 X10^3/uL (1.3-2.9); LYMPHOCYTES % (AUTO) 9.9 % (21.0-51.0); MEAN CORPUSCULAR HEMOGLOBIN 30.4 pg (27.0-34.0); MEAN CORPUSCULAR VOLUME 89.5 fL (80.0-100.0); MEAN PLATELET VOLUME 7.9 fL (7.4-11.0); MONOCYTES % (AUTO) 13.1 % (0.0-13.0); NEUTROPHILS # (AUTO) 5.5 x10^3/uL (2.2-4.8); NEUTROPHILS % (AUTO) 71.3 % (42.0-75.0); RED BLOOD COUNT 2.78 X10^6/uL (3.5-5.4); RED CELL DISTRIBUTION WIDTH 15.2 % (11.6-16.5); WHITE BLOOD COUNT 7.7 X10^3/uL (3.6-10.0)
[2022-08-15 06:43] LABS: ALANINE AMINOTRANSFERASE 8 Units/L (12-78); ALBUMIN 3.7 g/dL (3.4-5.0); ALKALINE PHOSPHATASE 168 Units/L (46-116); ASPARTATE AMINO TRANSFERASE 28 Units/L (15-37); BLOOD UREA NITROGEN 32 mg/dL (7-18); CALCIUM 10.2 mg/dL (8.5-10.1); CHLORIDE 101 mmol/L (98-107); SODIUM 142 mmol/L (136-145); TOTAL PROTEIN 6.7 g/dL (6.4-8.2); eGFR NON BLACK RACES 52 (>60)
[2022-08-15] MEDS ORDERED: LASIX IVP ONE (06:48)
[2022-08-15 07:02] LABS: BAND NEUTROPHILS % 3 % (0-10)
[2022-08-15 07:03] LABS: PLATELET MORPHOLOGY COMMENT NORMAL (NORMAL)
[2022-08-15] MEDS ORDERED: LEXAPRO ONE (07:34)
[2022-08-15] MEDS ORDERED: TOPROL XL PO ONE (07:35)
[2022-08-15] MEDS: LASIX IVP SCH ×2 (08:07→16:42)
[2022-08-15] MEDS: PROTONIX TAB 40 MG PO SCH (08:09)
[2022-08-15] MEDS: VITAMIN D3 125 mcg (5,000 UNITS) PO SCH (08:09)
[2022-08-15] MEDS: TYLENOL 325 MG TAB PO PRN (08:09)
[2022-08-15] MEDS: FOLIC ACID TAB 1 MG PO SCH (08:09)
[2022-08-15] MEDS: ZETIA TAB 10 MG PO SCH (08:10)
[2022-08-15] MEDS: DIFLUCAN PO SCH (08:10)
[2022-08-15] MEDS: NU IRON PO SCH (08:10)
[2022-08-15] MEDS: LEVAQUIN TAB 500 MG PO SCH (08:10)
[2022-08-15] MEDS: ASPIRIN EC 81 MG PO SCH (08:10)
[2022-08-15] MEDS: JUVEN PO SCH (08:11)
[2022-08-15] MEDS: NYSTATIN POWDER TOP SCH ×2 (08:11→21:16)
[2022-08-15] MEDS: LEXAPRO PO SCH (08:19)
[2022-08-15] MEDS: TOPROL XL PO SCH (08:20)
[2022-08-15] MEDS: XARELTO PO SCH ×2 (08:22→21:08)
[2022-08-15] MEDS: ENTRESTO 24/26 MG TAB PO SCH ×2 (08:23→21:07)
[2022-08-15] MEDS: VANCOMYCIN IV *PREMIX 750 mg/150 ML BAG 750 MG/150 ML PIGGYBACK IV SCH (08:23)
[2022-08-15] MEDS: DUONEB 0.5 MG/3 MG (3 mL) NEB SCH ×4 (08:43→21:30)
[2022-08-15] MEDS: PULMICORT NEB TX 0.5 MG NEB SCH ×2 (08:44→21:30)
[2022-08-15] MEDS: MUCOMYST 20% 200 MG/ML NEB SCH ×4 (08:44→21:30)
[2022-08-15] MEDS: THEO-24 CAP 200 MG (24-HR) PO SCH (11:47)
--- NOTE | 2022-08-15 12:36 | CT ---
HISTORYSHORTNESS OF BREATH.brPOSSIBLE PESTUDYCTA CHESTCOMPARISONChest radiograph from today. Chest CT with contrast from 1 day prior.TECHNIQUECTA chest protocol with axial images from the thoracic inlet to upper abdomen with IV contrast. Sagittal and coronal reformats and MIP images were created. Automated exposure control was utilized.FINDINGSMild motion artifact. The visualized thyroid gland appears benign. Moderately atherosclerotic normal caliber thoracic aorta. No central PE. Normal caliber central pulmonary artery. Limited evaluation of more peripheral branches due to motion artifact. No definite peripheral PE. The heart is mildly enlarged. No pericardial effusion. Coronary artery calcifications at the LAD or present. Mild mediastinal adenopathy. For example there is a right lower paratracheal lymph node measuring 1.2 cm short axis image 48 series 4. Subcarinal lymph node measures 1.7 cm short axis image 62 series 4. Suspect hepatic steatosis and splenomegaly. In chronic left anterior 5th through 7th rib fractures. Likely chronic burst fracture at L1 with approximately 2 mm of retropulsion of the posterior superior fragment and approximately 30 percent height loss centrally. The trachea and mainstem bronchi appear patent. Bilateral interlobular septal thickening and mild scattered ground-glass opacities. Moderate pleural effusions with associated atelectasis. No pneumothorax.IMPRESSIONNo central PE. No definite peripheral PE but evaluation is limited due to motion artifact.Moderate bilateral pleural effusions slightly larger than prior CT. Ground-glass opacities with interlobular septal thickening likely due to pulmonary edema.Likely reactive mild mediastinal adenopathy. Consider three-month CT follow-up to document stability or resolution of these lymph nodes.Other incidental findings as above.Electronically signed by: Dirk Rivas (Aug 15, 2022 12:34:14)
--- NOTE | 2022-08-15 17:26 | NOTE.SOAP ---
Soap Note Note for Day of Date of Exam: 08/15/22 Subjective Data Subjective Data: Patient seen bedside today with present. Patient laying in bed with left leg splint in place and propped up on pillows. Case discussed with nursing team, notes of additional loose bowel movement, a general lethargy and difficulty eating / drinking today. asked about chest CT scan results, I did relay findings to him. Patient does appear solemn and does not actively participate in conversation today. Objective Data Objective Data: Left lower extremity in posterior splint with heel floating. Wound vac in place, 75mmHg, no drainage in canister. Able to wiggle digits. Protective and light touch sensation intact to digits of left foot. Capillary refill time has not changed since last visit. Assessment Assessment: -Left lower extremity wounds, nonhealing (x3) - posterior heel, dorsal foot, and lateral 5th MPJ -S/p repeat debridement of left lower extremity wounds, graft application, wound vac application, posterior splint reapplication (DOS 08-13-22) -S/p left foot wound debridement with graft application (DOS 07-28-22) -S/p Aortogram, arteriogram left leg, atherectomy and balloon angioplasty of the left peroneal artery, drug coated balloon angioplasty of left superficial femoral artery (DOS 07-26-22) -Peripheral arterial disease -Right tibial sesamoid fracture Plan Plan: -Patient evaluated and chart reviewed. -Continue all previous orders and directives. -After discussion with patient's and patient, I do think we can start to wean off narcotic medications. Whether or not they are playing any role in her respiratory depression, I cannot say at this time, but she is nearly 3 days out from her procedure which was not very invasive and should not require much pain control at this point. I will suggest Tramadol 50mg Q6 hours prn severe pain with supplementation of Tylenol 1000mg Q8 hours mild to moderate pain, as long as her liver will tolerate without enzyme elevation. -Leave dressing, splint, and wound vac intact until Saturday. I would like to give this a period of time to heal before we remove the granufoam dressing. -Patient is okay for DC to SNF at any point from a foot and ankle POV. We will follow along while she remains in an acute care setting.
[2022-08-15] MEDS ORDERED: ULTRAM PO PRN (17:34)
[2022-08-15] MEDS ORDERED: TYLENOL 500 MG TAB EXTRA STRENGTH PO PRN (17:34)
[2022-08-15] MEDS: MELATONIN PO SCH (21:08)
[2022-08-15] MEDS: SINGULAIR TAB 10 MG PO SCH (21:08)
[2022-08-15] MEDS: COLACE CAP 100 MG PO SCH (21:08)
[2022-08-15] MEDS: ALBUMIN HUMAN 25%- 100 ML 100 ML IV SCH (21:12)
[2022-08-15] MEDS: LOMOTIL PO PRN (22:56)
[2022-08-16] MEDS: CATAPRES TAB 0.1 MG PO PRN (04:41)
[2022-08-16 05:24] LABS: ABG BASE EXCESS 14.6 mmol/L (-2.0-2.0)
[2022-08-16 05:27] LABS: ABG ALLEN TEST POS; ABG HCO3 41.4 mmol/L (22-26)
[2022-08-16] MEDS: ROBAXIN PO SCH (05:32)
[2022-08-16] MEDS: NEURONTIN CAP 100 MG PO SCH (05:32)
[2022-08-16] MEDS: SYNTHROID 125 mcg TAB PO SCH (05:32)
[2022-08-16] MEDS: REQUIP PO SCH (05:32)
--- NOTE | 2022-08-16 05:52 | RAD ---
HISTORYSOB Relevant Clinical InformationSTUDYCHEST, 1 [id number] trachea is midline. The cardiac silhouette is unremarkable. Right basilar and left perihilar atelectasis and/or infiltrates unchanged. No pneumothorax. The bony thorax is unremarkable.IMPRESSIONStable portable chestElectronically signed by: Adarsh Alanis (Aug 16, 2022 05:49:41)
[2022-08-16 06:04] LABS: BASOPHILS # (AUTO) 0.1 X10^3/uL (0.0-0.1); BASOPHILS % (AUTO) 0.9 % (0.2-1.0); EOSINOPHILS # (AUTO) 0.5 x10^3/uL (0.0-0.2); EOSINOPHILS % (AUTO) 5.6 % (0.9-2.9); HEMATOCRIT 26.2 % (36.0-47.0); HEMOGLOBIN 8.8 g/dL (12.0-16.0); LYMPHOCYTES # (AUTO) 0.5 X10^3/uL (1.3-2.9); LYMPHOCYTES % (AUTO) 5.4 % (21.0-51.0); MEAN CORPUSCULAR HEMOGLOBIN 29.9 pg (27.0-34.0); MEAN CORPUSCULAR HGB CONC 33.7 g/dL (33.0-35.0); MEAN CORPUSCULAR VOLUME 88.5 fL (80.0-100.0); MEAN PLATELET VOLUME 8.3 fL (7.4-11.0); MONOCYTES # (AUTO) 0.9 x10^3/uL (0.3-0.8); MONOCYTES % (AUTO) 10.5 % (0.0-13.0); NEUTROPHILS # (AUTO) 6.7 x10^3/uL (2.2-4.8); NEUTROPHILS % (AUTO) 77.6 % (42.0-75.0); RED BLOOD COUNT 2.96 X10^6/uL (3.5-5.4); RED CELL DISTRIBUTION WIDTH 15.1 % (11.6-16.5); WHITE BLOOD COUNT 8.6 X10^3/uL (3.6-10.0)
[2022-08-16 06:15] LABS: ALANINE AMINOTRANSFERASE 8 Units/L (12-78); ALBUMIN 3.9 g/dL (3.4-5.0); ALKALINE PHOSPHATASE 193 Units/L (46-116); ASPARTATE AMINO TRANSFERASE 35 Units/L (15-37); BLOOD UREA NITROGEN 36 mg/dL (7-18); CALCIUM 10.4 mg/dL (8.5-10.1); CARBON DIOXIDE 35.8 mmol/L (21-32); CHLORIDE 101 mmol/L (98-107); COR NA(FOR HYPERGLY) 144 mmol/L (136-145); CREATININE 1.28 mg/dL (0.55-1.02); SODIUM 143 mmol/L (136-145); TOTAL PROTEIN 5.3 g/dL (6.4-8.2); eGFR NON BLACK RACES 44 (>60)
[2022-08-16] MEDS ORDERED: TOPROL XL PO ONE (08:15)
[2022-08-16] MEDS ORDERED: LEXAPRO ONE (08:15)
[2022-08-16] MEDS: PULMICORT NEB TX 0.5 MG NEB SCH (08:40)
[2022-08-16] MEDS: MUCOMYST 20% 200 MG/ML NEB SCH ×3 (08:40→16:23)
[2022-08-16] MEDS: DUONEB 0.5 MG/3 MG (3 mL) NEB SCH ×3 (08:40→16:23)
[2022-08-16] MEDS ORDERED: LEVAQUIN TAB 250 MG PO SCH (09:00)
[2022-08-16] MEDS: NYSTATIN POWDER TOP SCH (09:00)
[2022-08-16 09:40] LABS: BILIRUBIN,URINE NEGATIVE (NEGATIVE); BLOOD/HEMOGLOBIN,URINE 1+ (NEGATIVE); GLUCOSE, URINE NEGATIVE (NEGATIVE); KETONES,URINE NEGATIVE (NEGATIVE); LEUKOCYTE ESTERASE ,URINE 3+ (NEGATIVE); NITRITES,URINE NEGATIVE (NEGATIVE); PROTEIN,URINE 2+ (NEGATIVE); UROBILINOGEN,URINE NORMAL (NORMAL)
[2022-08-16 09:52] LABS: APPEARANCE,URINE SLIGHTLY HAZY (CLEAR); COLOR,URINE YELLOW (YELLOW)
[2022-08-16 09:53] LABS: BACTERIA,URINE TRACE /HPF (NEGATIVE); RBC,URINE 0-2 /HPF (0-3); SQUAMOUS EPITHELIAL CELL,UR FEW /HPF (NEGATIVE)
[2022-08-16 09:54] LABS: HYALINE CASTS, URINE FEW /LPF (NEGATIVE); YEAST,URINE RARE /HPF (NEGATIVE)
[2022-08-16] MEDS: VANCOMYCIN IV *PREMIX 750 mg/150 ML BAG 750 MG/150 ML PIGGYBACK IV SCH (10:20)
[2022-08-16] MEDS: LASIX IVP SCH (10:24)
[2022-08-16 11:15] LABS: ABG BASE EXCESS 10.8 mmol/L (-2.0-2.0)
[2022-08-16 11:16] LABS: ABG ALLEN TEST POS; ABG HCO3 39.2 mmol/L (22-26)
--- NOTE | 2022-08-16 11:34 | PCM.PROG ---
Progress Note - Progress Note for Day of Date of Exam: 08/15/22 - Subjective Subjective: IS CURRENTLY BEING TREATED FOR LEFT FOOT NON-HEALING WOUND, BILATERAL PLEURAL EFFUSIONS, CHF, ANEMIA, AND SHORTNESS OF BREATH. SHE IS STATUS REVASCULARIZATION OF THE LEFT LEG AND DEBRIDEMENT OF WOUNDS TO THE LEFT LEG. SHE HAD FURTHER DEBRIDEMENT OF WOUNDS ON SATURDAY AND A WOUND VAC WAS PLACED. SHE HAS RECEIVED TWO UNITS OF PACKED RED BLOOD CELLS SINCE ADMISSION. TODAY, SHE IS ALERT AND ORIENTED, LYING IN BED ON MORNING ROUNDS. SHE CONTINUES WITH COMPLAINTS OF SHORTNESS OF BREATH, WEAKNESS, AND COUGH. WE HAVE BEEN UNABLE TO DECREASE FI02 WITHOUT SATURATIONS DROPPING. SHE DID WEAR THE BIPAP THROUGHOUT THE NIGHT BUT IS ON HEATED HIGH FLOW OXYGEN THIS MORNING. FI02 IS AT 65%. HER VITALS THIS MORNING ARE: 99.5-100-22-90%-151/60. LABS WERE OBTAINED. WBC 7.7, RBC 2.78, HGB 8.5, HCT 24.9, PLT COUNT 142, SODIUM 142, POTASSIUM 4.9, CHLORIDE 101, CARBON DIOXIDE 37.0, BUN 32, CREATININE 1.10, GLUCOSE 96, CALCIUM 10.2, TOTAL BILI 1.50, AST 28, ALT 8, ALK PHOS 168, BNP 1170, TOTAL PROTEIN 6.7, ALBUMIN 3.7. 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 SPUTUM CULTURE IS POSITIVE FOR STENOTROPHOMONAS MALTOPHILIA AND JESSY ALBICANS. A CHEST XRAY WAS OBTAINED THIS MORNING AND REVEALED: The trachea is midline. The cardiac silhouette is unremarkable. Right basilar and left perihilar atelectasis or infiltrates unchanged. No pneumothorax. The bony thorax is unremarkable. No central PE. No definite peripheral PE but evaluation is limited due to motion artifact. Moderate bilateral pleural effusions slightly larger than prior CT. Ground-glass opacities with interlobular septal thickening likely due to pulmonary edema. Likely reactive mild mediastinal adenopathy. SHE IS CURRENTLY RECEIVING VANCOMYCIN 750MG IV Q12H, LEVAQUIN 500MG PO DAILY, ALBUMIN 25% IV DAILY, DIFLUCAN 100MG PO DAILY, DUONEBS QID, MUCOMYST IN NEB [place], PULMICORT NEBS BID, THEOPHYLLINE 200MG DAILY, LASIX 40MG IV BID, DILAUDID 1MG IV Q4H PRN, ATIVAN 0.5MG PO BID, ECOTRIN 81MG PO DAILY, CATAPRES 0.1MG PO BID PRN, COLACE 100MG PO HX, LEXAPRO 10MG PO DAILY, ZETIA 10MG PO DAILY, FOLIC ACID 1MG PO DAILY, NEURONTIN 200MG PO TID, SYNTHROID 125MCG PO DAILY, MELATONIN 10MG PO HS, ROBAXIN 500MG PO TID, TOPROL XL 100MG PO DAILY, SINGULAIR 10MG PO HS, PERCOCET 5/325MG PO Q6H PRN, PROTONIX 40MG PO DAILY, XARELTO 2.5MG PO BID, REQUIP 0.25MG PO TID, LOMOTIL 1 TAB QID, NYSTATIN POWDER TO GROIN BID. OTHERWISE, WE WILL C ONTINUE WITH CURRENT PLAN OF CARE TODAY. WE WILL FOLLOW-UP WITH AM LABS AND CONTINUE TO MONITOR. TIME SPENT ON CLINICAL ASSESSMENT, REVIWING LABS AND IMAGING, DECISION MAKING, AND DOCUMENTATION GREATER THAN 45 MINUTES. - Past Medical Family Social History Past Med/Fam/Surg Hx: No changes since H&P Allergies: Allergies No Known Drug Allergies Allergy (Verified 07/23/22 21:06) - Review of Systems ROS: No change since H&P - Vital Signs and I&O's Vital Signs: Temperature 100.2 F Pulse Rate [Left Brachial] 80 Pulse Rate [Right Brachial] 99 Pulse Rate 101 Respiratory Rate 20 Blood Pressure [Left Arm] 99/45 Blood Pressure [Right Arm] 101/41 Blood Pressure 125/60 O2 Sat by Pulse Oximetry 93 Intake and Output: Intake & Output 08/13/22 08/14/22 08/15/22 08/16/22 11:59 11:59 11:59 11:59 Intake Total 1250 / 1250 810 / 810 1280 / 1280 425 / 425 Output Total 1430 / 1430 1500 / 1500 2150 / 2150 1390 / 1390 Balance -180 / -180 -690 / -690 -870 / -870 -965 / -965 - Physical Exam Oriented: Person, Place Eyes: Normal Ear: Normal Nose: Normal Throat: Normal Respiratory: Generalized, Diminished Cardiovascular: Normal : Normal Auscultation: Bowel Sounds: Normal Palpation: Normal Tenderness: Normal. negative: Diffuse, RUQ, RLQ, LUQ, LLQ, Epigastric, Periumbilical, Suprapubic, Mild, Moderate, Severe, Rebound, Guarding, Rigidity, Other Skin: Wound (LEFT FOOT) Musculoskeletal: Left, Foot, Tender Psychiatric: Normal Mood Description: Calm Affect: Normal Speech Pattern: Clear, Appropriate - Laboratory and Diagnostics Result Diagrams: 08/16/22 05:42 08/16/22 05:42 Labs: 08/09/22 12:05 Stool Stool Culture - Preliminary 08/09/22 12:05 Stool - Final 07/31/22 09:00 Sputum - Expectorated Sputum Sputum Culture - Final Stenotrophomonas Maltophilia Jessy Albicans 07/31/22 09:00 Sputum - Expectorated Sputum - Final 07/27/22 15:30 Foot - Left Wound Gram Stain - Final 07/27/22 15:30 Foot - Left Wound Culture - Final Methicillin Resis Staph Aureus 07/27/22 15:30 Foot - Left Wound Gram Stain - Final 07/27/22 15:30 Foot - Left Wound Culture - Final Laboratory WBC 8.6 X10^3/uL (3.6-10.0) 08/16/22 05:42 RBC 2.96 X10^6/uL (3.5-5.4) L 08/16/22 05:42 Hgb 8.8 g/dL (12.0-16.0) L 08/16/22 05:42 Hct 26.2 % (36.0-47.0) L 08/16/22 05:42 MCV 88.5 fL (80.0-100.0) 08/16/22 05:42 MCH 29.9 pg (27.0-34.0) 08/16/22 05:42 MCHC 33.7 g/dL (33.0-35.0) 08/16/22 05:42 RDW 15.1 % (11.6-16.5) 08/16/22 05:42 Plt Count 161 X10^3/uL (150.0-450.0) 08/16/22 05:42 Plt Count Comment Decreased (ADEQUATE) A 08/15/22 06:12 MPV 8.3 fL (7.4-11.0) 08/16/22 05:42 Neut % (Auto) 77.6 % (42.0-75.0) H 08/16/22 05:42 Lymph % (Auto) 5.4 % (21.0-51.0) L 08/16/22 05:42 [place] % (Auto) 10.5 % (0.0-13.0) 08/16/22 05:42 Eos % (Auto) 5.6 % (0.9-2.9) H 08/16/22 05:42 Baso % (Auto) 0.9 % (0.2-1.0) 08/16/22 05:42 Neut # (Auto) 6.7 x10^3/uL (2.2-4.8) H 08/16/22 05:42 Lymph # (Auto) 0.5 X10^3/uL (1.3-2.9) L 08/16/22 05:42 [place] # (Auto) 0.9 x10^3/uL (0.3-0.8) H 08/16/22 05:42 Eos # (Auto) 0.5 x10^3/uL (0.0-0.2) H 08/16/22 05:42 Baso # (Auto) 0.1 X10^3/uL (0.0-0.1) 08/16/22 05:42 Absolute Nucleated RBC 0.0 /100WBC 08/16/22 05:42 Total Counted 100 08/15/22 06:12 Neutrophils % (Manual) 81 % (39-76) H 08/15/22 06:12 Band Neutrophils % 3 % (0-10) 08/15/22 06:12 Lymphocytes % (Manual) 10 % (13-43) L 08/15/22 06:12 Monocytes % (Manual) 5 % (4-9) 08/15/22 06:12 Eosinophils % (Manual) 1 % (0-6) 08/15/22 06:12 Metamyelocytes % 4 07/30/22 05:32 Plt Clumps, EDTA Rare 08/13/22 04:12 Plt Morphology Comment Normal (NORMAL) 08/15/22 06:12 RBC Morphology Normal (NORMAL) 08/15/22 06:12 PT 15.8 SECONDS (11.8-14.3) 07/24/22 05:32 INR Target Range - 07/24/22 05:32 INR 1.31 (0.8-1.3) H 07/24/22 05:32 APTT 29.2 SECONDS (22.9-36.5) 07/24/22 05:32 PTT Comment - 07/24/22 05:32 Sample Site Lrad 08/16/22 11:10 ABG pH 7.350 (7.35-7.45) 08/16/22 11:10 ABG pCO2 71.0 mmHg (35.0-45.0) H* 08/16/22 11:10 ABG pO2 94.0 mmHg (80.0-100.0) 08/16/22 11:10 ABG HCO3 39.2 mmol/L (22-26) H* 08/16/22 11:10 ABG O2 Saturation 97.0 % (90-100) 08/16/22 11:10 ABG Base Excess 10.8 mmol/L (-2.0-2.0) H 08/16/22 11:10 Lenard Test Pos 08/16/22 11:10 A-a Gradient 459.0 mmHg 08/16/22 11:10 FiO2 90.0 08/16/22 11:10 Blood Gas Comments Camilla well ms/sd 08/16/22 11:10 Sodium 143 mmol/L (136-145) 08/16/22 05:42 Corrected Sodium 144 mmol/L (136-145) 08/16/22 05:42 Potassium 4.7 mmol/L (3.5-5.1) 08/16/22 05:42 Chloride 101 mmol/L (98-107) 08/16/22 05:42 Carbon Dioxide 35.8 mmol/L (21-32) H 08/16/22 05:42 BUN 36 mg/dL (7-18) H 08/16/22 05:42 Creatinine 1.28 mg/dL (0.55-1.02) H 08/16/22 05:42 Est GFR (MDRD) Af Amer 53 (>60) L 08/16/22 05:42 Est GFR (MDRD) Non-Af 44 (>60) L 08/16/22 05:42 Glucose 151 mg/dL (65-99) H 08/16/22 05:42 POC Glucose (mg/dL) 148 mg/dL (65-99) H 07/27/22 08:37 Hemoglobin A1c 6.2 % 08/11/22 05:06 Lactic Acid 1.1 mmol/L (0.4-2.0) 08/16/22 06:25 Calcium 10.4 mg/dL (8.5-10.1) H 08/16/22 05:42 Corrected Calcium TNP 08/16/22 05:42 Iron 32 ug/dL (50-175) L 08/10/22 05:16 Transferrin 154 mg/dL (202-364) L 08/10/22 05:16 Ferritin 260 ng/mL (8-252) H 08/10/22 05:16 Total Bilirubin 1.40 mg/dL (0.2-1.0) H 08/16/22 05:42 AST 35 Units/L (15-37) 08/16/22 05:42 ALT 8 Units/L (12-78) L 08/16/22 05:42 Alkaline Phosphatase 193 Units/L (46-116) H 08/16/22 05:42 Troponin I High Sens 15.3 ng/L (4.0-60.0) 08/15/22 06:12 B-Natriuretic Peptide 1300 pg/mL (0-79) H* 08/16/22 05:42 Total Protein 5.3 g/dL (6.4-8.2) L 08/16/22 05:42 Albumin 3.9 g/dL (3.4-5.0) 08/16/22 05:42 Globulin 1.4 g/dL (2.5-4.5) L 08/16/22 05:42 Albumin/Globulin Ratio 2.8 Ratio (1.1-2.1) H 08/16/22 05:42 Prealbumin 9.0 mg/dL (18-35.7) L 08/13/22 04:12 Ceyms-2-Jphyzwwdvvp 222 mg/dL (90-200) H 08/10/22 05:16 Ceruloplasmin 23 mg/dL (16-45) 08/10/22 05:16 Vitamin B12 1013 pg/mL (193-986) H 08/05/22 05:16 Folate > 20.0 ng/mL (>8.6) 08/05/22 05:16 Specimen Type Catherized urine 08/16/22 09:20 Urine Color Yellow (YELLOW) 08/16/22 09:20 Urine Appearance Slightly hazy (CLEAR) 08/16/22 09:20 Urine pH 5.0 (5.0 - 8.0) 08/16/22 09:20 Ur Specific [place] 1.015 (1.000-1.030) 08/16/22 09:20 Urine Protein 2+ (NEGATIVE) 08/16/22 09:20 Urine Glucose (UA) Negative (NEGATIVE) 08/16/22 09:20 Urine Ketones Negative (NEGATIVE) 08/16/22 09:20 Urine Blood 1+ (NEGATIVE) 08/16/22 09:20 Urine Nitrite Negative (NEGATIVE) 08/16/22 09:20 Urine Bilirubin Negative (NEGATIVE) 08/16/22 09:20 Urine Urobilinogen Normal (NORMAL) 08/16/22 09:20 Ur Leukocyte Esterase 3+ (NEGATIVE) 08/16/22 09:20 Urine RBC 0-2 /HPF (0-3) 08/16/22 09:20 Urine WBC 0-2 /HPF (0-5) 08/16/22 09:20 Ur Squamous Epith Cells Few /HPF (NEGATIVE) 08/16/22 09:20 Calcium Oxalate Crystal Rare /HPF (NEGATIVE) 07/31/22 11:05 Amorphous Sediment 1+ /HPF (NEGATIVE) 08/16/22 09:20 Urine Bacteria Trace /HPF (NEGATIVE) 08/16/22 09:20 Hyaline Casts Few /LPF (NEGATIVE) 08/16/22 09:20 Urine Mucus Rare /HPF (NEGATIVE) 08/04/22 21:25 Urine Yeast Rare /HPF (NEGATIVE) 08/16/22 09:20 Ur Culture Indicated? No/not indicated 08/16/22 09:20 Stl C. diff Tox B Gene Negative (NEGATIVE) 08/06/22 21:32 Stl C. diff [id number] Presumptive negative (NEGATIVE) 08/06/22 21:32 Vancomycin Trough 21.2 ug/mL (15-20) H* 08/13/22 08:20 Copper 83.3 ug/dL (80.0-155.0) 08/10/22 05:16 MICHAEL Screen None detected (None Detected) 08/10/22 05:16 MICHAEL Titer TNP 08/10/22 05:16 MICHAEL Pattern TNP 08/10/22 05:16 Sm (Novoa) Antibody 0 AU/mL (0-40) 08/10/22 05:16 Anti-Mitochondrial Ab 5.0 Units (0.0-24.9) 08/10/22 05:16 SARS-CoV-2 (PCR) Negative (NEGATIVE) 08/16/22 09:10 Hepatitis A IgM Ab Negative (Negative) 08/10/22 05:16 Hep Bs Antigen Negative (Negative) 08/10/22 05:16 Hep Bs Ag Confirmation TNP 08/10/22 05:16 Hep B Core IgM Ab Negative (Negative) 08/10/22 05:16 Hepatitis C Ab Index <0.02 IV 08/10/22 05:16 Hepatitis C Interp Negative (Negative) 08/10/22 05:16 Hepatitis Interpret See note 08/10/22 05:16 Influenza Type A (PCR) Negative (NEGATIVE) 08/16/22 09:10 Influenza Type B (PCR) Negative (NEGATIVE) 08/16/22 09:10 RSV (PCR) Negative (NEGATIVE) 08/16/22 09:10 SARS CoV-2 RNA Rapid SURI Cancelled 08/02/22 13:15 Blood Type O POSITIVE 08/05/22 10:15 Antibody Screen Negative 08/05/22 10:15 Crossmatch See Detail 08/05/22 10:15 - Plan (1) Wound of left ankle Status: Acute Qualifiers: Encounter type: initial encounter Qualified Code(s): S91.002A - Unspecified open wound, left ankle, initial encounter (2) Ischemia of left lower extremity Status: Acute (3) Pleural effusion due to CHF (congestive heart failure) Status: Acute (4) Pulmonary edema Status: Acute Qualifiers: Chronicity: acute Qualified Code(s): J81.0 - Acute pulmonary edema (5) Bronchopneumonia Status: Acute
[2022-08-16] MEDS ORDERED: DIPRIVAN VIAL 20 ML ONE (11:35)
[2022-08-16] MEDS ORDERED: QUELICIN (OR ANECTINE) ONE (11:37)
[2022-08-16] MEDS ORDERED: DIPRIVAN PREMIX 1 GRAM IV 1,000 MG/100 ML VIAL ONE (12:05)
[2022-08-16] MEDS ORDERED: VERSED IV PREMIX 100 MG/100 ML IV.SOLN IV ONE (12:05)
[2022-08-16] MEDS: DIPRIVAN PREMIX 1 GRAM IV 1,000 MG/100 ML VIAL IV PRN ×2 (12:10→16:30)
[2022-08-16] MEDS: ZOSYN VIAL 3.375 GRAMS 3.375 G in NS 100 ML IV 100 ML IV SCH ×2 (12:10→14:30)
[2022-08-16] MEDS ORDERED: DUKE'S Magic Mouthwash (nyst/dex/ben/doxyc) MT PRN (12:20)
[2022-08-16] MEDS: LEXAPRO PO SCH (12:30)
[2022-08-16] MEDS: TOPROL XL PO SCH (12:31)
[2022-08-16] MEDS: ASPIRIN EC 81 MG PO SCH (12:31)
[2022-08-16] MEDS: ENTRESTO 24/26 MG TAB PO SCH (12:32)
[2022-08-16] MEDS: DIFLUCAN PO SCH (12:32)
[2022-08-16] MEDS: FOLIC ACID TAB 1 MG PO SCH (12:33)
[2022-08-16] MEDS: JUVEN PO SCH (12:35)
[2022-08-16] MEDS: NU IRON PO SCH (12:36)
[2022-08-16] MEDS: PROTONIX TAB 40 MG PO SCH (12:38)
[2022-08-16] MEDS: THEO-24 CAP 200 MG (24-HR) PO SCH (12:38)
[2022-08-16] MEDS: VITAMIN D3 125 mcg (5,000 UNITS) PO SCH (12:39)
[2022-08-16] MEDS: ZETIA TAB 10 MG PO SCH (12:40)
[2022-08-16] MEDS: XARELTO PO SCH (12:40)
[2022-08-16] MEDS ORDERED: DIPRIVAN PREMIX 500 MG IV 500 MG/50 ML VIAL IV ONE (12:41)
[2022-08-16] MEDS ORDERED: VERSED IV PREMIX IV PRN (12:42)
--- NOTE | 2022-08-16 13:08 | RAD ---
PROCEDURE: Chest X-ray 1 View .HISTORY: Endotracheal tube placement.TECHNIQUE: AP view .COMPARISON: 08/16/2022 chest x-ray done at 5:07 a.m..TECHNICAL QUALITY: Satisfactory .FINDINGS:Endotracheal tube tip 1.5 cm above the gildardo in repositioning more proximally 1-2 cm recommended.Normal size heart.Mediastinum and hilar regions show no masses or lymphadenopathy .Normal central vascularity .Patchy consolidation and discoid atelectasis both lung shi. No pleural fluid or pneumothorax.No acute bony abnormality .IMPRESSION:1. Low endotracheal tube in repositioning more proximally 1-2 cm recommended.2. Some increase in patchy consolidation and atelectasis right lung field and unchanged on the left.Electronically signed by: Shane Chavarria (Aug 16, 2022 13:06:28)
[2022-08-16 13:15] LABS: ABG BASE EXCESS 15.7 mmol/L (-2.0-2.0)
[2022-08-16 13:16] LABS: ABG HCO3 37.7 mmol/L (22-26)
[2022-08-16 13:17] LABS: ABG ALLEN TEST POS
[2022-08-16] MEDS ORDERED: VERSED IV PREMIX 100 MG/100 ML IV.SOLN IV PRN (13:36)
--- NOTE | 2022-08-16 14:32 | RAD ---
PROCEDURE: Chest X-ray 1 View .HISTORY: ET TUBE ADJUSTMENT .TECHNIQUE: AP view.COMPARISON: 08/16/2022 chest x-ray done at 12:23 p.m..TECHNICAL QUALITY: Satisfactory .FINDINGS:There is no change in position of the endotracheal tube with the tip 1.5 cm above the gildardo. Repositioning more proximally 1-2 cm recommended.Normal size heart.Mediastinum and hilar regions show no masses or lymphadenopathy .Unchanged patchy consolidation and atelectasis.No pulmonary consolidation, masses, pleural fluid, or pneumothorax .No acute bony abnormality .IMPRESSION:1. Unchanged endotracheal tube position and repositioning more proximally 1-2 cm recommended.2. Unchanged atelectasis and pneumonia.Electronically signed by: Shane Chavarria (Aug 16, 2022 14:30:27)
[2022-08-16 17:35] VITALS: BP 111/52
[2022-08-16] MEDS ORDERED: LACRI-LUBE S.O.P. AFFEYE SCH (21:00)
[2022-08-17] MEDS ORDERED: PHARMACY COMMENT IV ONE (08:00)
== END 2022-08-16 16:30 | disposition short-term general hospital (02) | DRG 576 ==
LOC: MED/SURG 19:22 → ICU 08-16 09:00
PROVIDERS: ADMIT Surgery; ATTEND Surgery
PROC: DEBRIDE (2022-07-27 20:25)
DX: R53.1 Weakness; I11.0 Hypertensive heart disease with heart failure; J15.6 Pneumonia due to other Gram-negative bacteria; Y92.9 Unspecified place or not applicable; R26.89 Other abnormalities of gait and mobility; A04.5 Campylobacter enteritis; B95.62 Methicillin resistant Staphylococcus aureus infection as the cause of diseases classified elsewhere; R06.02 Shortness of breath; J90 Pleural effusion, not elsewhere classified; X58.XXXA Exposure to other specified factors, initial encounter; E03.8 Other specified hypothyroidism; B37.1 Pulmonary candidiasis; R94.5 Abnormal results of liver function studies; I70.222 Atherosclerosis of native arteries of extremities with rest pain, left leg; S91.002A Unspecified open wound, left ankle, initial encounter; T81.89XD Other complications of procedures, not elsewhere classified, subsequent encounter; L03.116 Cellulitis of left lower limb; M24.572 Contracture, left ankle; I50.9 Heart failure, unspecified; J44.1 Chronic obstructive pulmonary disease with (acute) exacerbation; E80.6 Other disorders of bilirubin metabolism